=== PATIENT | female | born 1975 | race Caucasian/White ===

== ENCOUNTER 2019-02-23 23:07 | Emergency (ER) | payer OTHER, SELFPAY ==
[2019-02-23 23:16] VITALS: BP 204/111; PULSE 110; RESP 18; TEMP 36.2; O2SAT 95; BMI 51.5
--- NOTE | 2019-02-23 23:25 | ED_ITS ---
HPI - Back Pain/Injury General Chief Complaint: Back Pain/Injury Stated Complaint: lower back pain x1 month Time Seen by Provider: 02/23/19 23:25 Source: patient Mode of arrival: ambulatory Limitations: no limitations History of Present Illness HPI Narrative: 43-year-old female here for evaluation of 1 month of lower back pain. she has had back pain issues in the past. Has had back surgery in the past both cervical and lumbar. She states that approximately 1 month ago she sat down and then since then has had pain. Does radiate down to her legs. No fevers. Has not seen a primary doctor or an orthopedic provider about this. He is not currently on any medicines. She states that she has ?tried everything ?to include essential oils. She states she gets daily massages. She came in this evening because ?I can't take it any longer ? Related Data Previous Rx's Medication Instructions Recorded clotrimazole 1 gm TOPICAL BID #30 gm 07/28/17 meloxicam [Mobic] 15 mg PO DAILY #30 tab 02/23/19 prednisone 50 mg PO DAILY 3 Days #9 tab 02/23/19 Review of Systems Constitutional Denies fever(s) Cardiovascular Denies chest pain and Denies dyspnea Respiratory Denies dyspnea Gastrointestinal Gastrointestinal: Denies abdominal pain Genitourinary Denies dysuria Musculoskeletal Reports back pain and Reports tingling Integumentary/Breasts Denies rash Neurologic Reports tingling Hematologic/Lymphatic Denies easy bleeding and Denies easy bruising [facility] Medical History Back pain (Acute) Surgical History (Updated 03/01/18 @ 06:15 by Conversion Provider) Status post laminectomy Family History (Updated 04/02/16 @ 00:00 by Conversion Provider) Brother Age: 37 Hyperthyroidism Sister Age: 47 Hyperthyroidism Stroke Social History Smoking Status: Current every day smoker Family History (Updated 04/02/16 @ 00:00 by Conversion Provider) Brother Age: 37 Hyperthyroidism Sister Age: 47 Hyperthyroidism Stroke Social History Smoking Status: Current every day smoker Exam Initial Vital Signs Initial Vital Signs: Vital Signs Temperature 97.1 F L 02/23/19 23:16 Pulse Rate 110 H 02/23/19 23:16 Respiratory Rate 18 02/23/19 23:16 Blood Pressure 204/111 H 02/23/19 23:16 Pulse Oximetry 95 02/23/19 23:16 Const General: cooperative, well groomed and No acute distress Orientation: alert, awake and oriented x3 HENMT Head: normal to inspection and normocephalic Resp Effort & Inspection: normal respiratory effort Cardio Rate: regular rate Back/Spine/Pelvis Thoracic/Lumbar Spine: paraspinal tenderness, No thoracic spinal tenderness and lumbar spinal tenderness Skin Rashes: no rashes Neuro General: alert, awake and oriented x3 Cognition: normal cognition Speech: speech normal Extrem General: normal to inspection and capillary refill normal Course Orders Ordered: Discontinued Medications Ketorolac Tromethamine (Toradol) 30 mg IM NOW ONE Stop: 02/23/19 23:34 Last Admin: 02/23/19 23:40 Dose: 30 mg Vital Signs - 8 hr 02/23/19 23:16 02/23/19 23:55 Temperature 97.1 F L Pulse Rate 110 H 96 H Respiratory Rate 18 18 Blood Pressure 204/111 H 159/109 H Pulse Oximetry 95 95 MDM - Back Pain/Injury MDM Narrative Medical decision making narrative: Patient without any red flag symptoms concerning for cauda equina, fracture, metastasis. She has had no recent spinal procedures which makes spinal epidural abscess and hematoma unlikely. No fevers. No indication for radiologic studies. She is not currently on any anti-inflammatories. Patient was asking for an MRI however informed her that there is no indication to do an emergent MRI head of the emergency department. I did inform her that this requires anti-inflammatories. She was given a Toradol shot here in the ER. Was sent home with prescription for Mobic and short course of steroids. Informed her that she needed to talk with her primary doctor regarding further workup. Patient seemed upset about this however expressed understanding and agreement. Discharge Plan Departure Patient Disposition: Home Clinical Impression: Lower back pain Qualifiers: Chronicity: chronic Back pain laterality: midline Sciatica presence: without s ciatica Qualified Code(s): M54.5 - Low back pain Discharge Date/Time: 02/23/19 23:55 Interventions: ED Discharge Assessment Last Done: 02/23/19 23:55 Instructions: Back Pain (Alternative Therapy), DI for Low Back Pain, Activity May Be Better then Rest for Low Back Pain Recovery, Exercise May Reduce Risk of Low Back Pain Activity Restrictions/Additional Instructions: Start taking the medications as directed. Contact your primary care doctor for follow-up to discuss the indications for an MRI. Return to the emergency department for any new or worsening symptoms Prescriptions: New meloxicam [Mobic] 15 mg tablet 15 mg PO DAILY Qty: 30 RF: 0 prednisone 50 mg tablet 50 mg PO DAILY 3 Days Qty: 9 RF: 0 No Action clotrimazole 1 % cream 1 gm Topical BID Qty: 30 RF: 0 Referrals: Felisa Bacon DO [Primary Care Provider] -
[2019-02-23] MEDS: KETOROLAC 60 MG/2 ML VIAL 30 MG IM (23:40)
[2019-02-23 23:55] VITALS: BP 159/109; PULSE 96; RESP 18; O2SAT 95
== END 2019-02-23 23:55 | disposition home or self-care (01) ==
PROVIDERS: Emergency Provider Emergency Medicine; PCP Family Medicine
DX: M54.5 Low back pain (principal); M79.605 Pain in left leg; M79.604 Pain in right leg
CPT/HCPCS: 96372; 99282; 99283; J1885

== ENCOUNTER 2019-03-05 11:53 | Inpatient (IN) | payer OTHER, MEDICAID, SELFPAY ==
[2019-03-05 12:28] VITALS: BP 152/97; PULSE 85; RESP 14; TEMP 37.7; O2SAT 98
--- NOTE | 2019-03-05 12:43 | PC.NURSE ---
Has history of laminectomy in lumbar spine. Reports having had increased pain in lower spine over past week. Today was ambulating and twisted to straighten a chair and felt pop in lower back. Reports unable to lift or bare weight on right leg. reports has normal numbness and tingling to bilateral lower extremities.
--- NOTE | 2019-03-05 14:20 | ED.BACK ---
HPI - Back Pain/Injury General Chief Complaint: Back Pain/Injury Stated Complaint: Lower Back Pain Time Seen by Provider: 03/05/19 14:19 Source: patient and other (friend) Mode of arrival: wheelchair Limitations: no limitations History of Present Illness HPI Narrative: A 43-year-old female comes to the emergency department with complaint of low back pain. Patient has had pain for about a month. She has had issues on and off for several years and had lumbar spine surgery several years ago. Patient states that about 2 hours ago she was moving a chair on her back porch she felt a pop. She immediately had increase in and severe pain in the lower lumbar region. She states that it is sort of in the left side more. Does not really radiate down her leg. She has chronic numbness from the knee down. She states that maybe it is a little bit worse. She states that she can move her leg but it is incredibly painful. Patient states that she can't really walk or move around very well. No loss of bowel or bladder control. She denies any fevers. She was seen by her primary care given steroids, muscle relaxers and referred to PT. She was also seen yesterday in the ER [place] as well as February 23 here. Patient is no longer in contact with her prior surgeon. She also has a history significant for vertebral fracture in the cervical region with surgery. Related Data Previous Rx's Medication Instructions Recorded clotrimazole 1 gm TOPICAL BID #30 gm 07/28/17 meloxicam [Mobic] 15 mg PO DAILY #30 tab 02/23/19 Allergies Allergy/AdvReac Type Severity Reaction Status Date / Time No Known Drug Allergies Allergy Verified 03/05/19 19:14 Review of Systems Review of Systems ROS Unobtainable: All systems reviewed & are unremarkable except as noted in HPI and below Constitutional Denies chills, Denies fever(s), Denies lethargy and Denies weakness Gastrointestinal Gastrointestinal: Denies abdominal pain and Denies fecal incontinence Genitourinary Denies hematuria, Denies dysuria, Denies flank pain, Denies urinary incontinence, Denies urinary hesitancy and Denies urinary urgency Musculoskeletal Reports as per HPI, Reports abnormal gait, Reports back pain, Denies arthralgias, Reports limited range of motion, Reports numbness (Below right leg) and Denies radiating pain into limb Integumentary/Breasts Denies erythema and Denies rash Neurologic Reports abnormal gait, Reports numbness (Below right leg) and Denies weakness [facility] Medical History Back pain (Acute) Surgical History Status post laminectomy Family History (Updated 04/02/16 @ 00:00 by Conversion Provider) Brother Age: 37 Hyperthyroidism Sister Age: 47 Hyperthyroidism Stroke Social History Smoking Status: Current every day smoker Family History (Updated 04/02/16 @ 00:00 by Conversion Provider) Brother Age: 37 Hyperthyroidism Sister Age: 47 Hyperthyroidism Stroke Social History Smoking Status: Current every day smoker Exam Narrative Exam Narrative: GENERAL: Alert and oriented x three, obese female in moderate distress. HEENT: Head normocephalic, atraumatic, EOMI, pupils reactive, face symmetric, moist mucous membranes NECK: Supple, full range of motion CARDIOVASCULAR: Regular rate and rhythm without murmurs, rubs or gallops. RESPIRATORY: Breath sounds equal bilaterally, no wheezes rales or rhonchi. ABDOMEN: Soft, nontender. Normoactive bowel sounds all 4 quadrants. No guarding or rebound, rigidity, no mass : No CVA tenderness BACK: No cervical, thoracic vertebral point tenderness. the patient has lumbar vertebral tenderness had L4 through 5 and S1 region. Patient has decreased range of motion. gait was not tested. Rectal exam is normal sphincter tone, normal sensation with no saddle anesthesia. Muscle strength is 5/5 on right lower extremity, patient is not cooperative for right lower extremity but does have some movement. DTRs are 2/4 and lower extremities. Dorsalis pedis and tibialis pulses are 2+ and lower extremities. Sensation is intact in the lower extremities bilaterally. NEUROLOGICAL: Cranial nerves II through XII grossly intact. Moving all extremities SKIN: Warm, dry, no petechiae, no rashes or lesions. Initial Vital Signs Initial Vital Signs: Vital Signs Temperature 99.9 F H 03/05/19 12:28 Pulse Rate 85 03/05/19 12:28 Respiratory Rate 14 03/05/19 12:28 Blood Pressure 152/97 H 03/05/19 12:28 Pulse Oximetry 98 03/05/19 12:28 Course Orders Ordered: ED Orders 03/05/19 14:51 MR lumbar spine wo con Stat 03/05/19 18:25 Urine Drug Screen, Rapid Stat 03/05/19 20:30 Basic Metabolic Panel Stat Complete Blood Count AUTO DIFF Stat Discontinued Medications Diazepam (Valium) 2 mg PO NOW ONE Stop: 03/05/19 14:53 Last Admin: 03/05/19 16:16 Dose: Not Given Diazepam (Valium) 2.5 mg PO NOW ONE Stop: 03/05/19 15:03 Last Admin: 03/05/19 15:10 Dose: 2.5 mg Hydromorphone HCl (Dilaudid) 1 mg IV NOW ONE Stop: 03/05/19 18:32 Last Admin: 03/05/19 18:40 Dose: 1 mg Ketorolac Tromethamine (Toradol) 30 mg IV NOW ONE Stop: 03/05/19 14:53 Last Admin: 03/05/19 15:10 Dose: 30 mg Methylprednisolone (Solu-Medrol 125 Mg Vial) 125 mg IV NOW ONE Stop: 03/05/19 18:42 Last Admin: 03/05/19 19:15 Dose: 125 mg Vital Signs - 8 hr 03/05/19 14:31 03/05/19 16:33 Pulse Rate 82 69 Respiratory Rate 18 18 Blood Pressure [Left Arm] 156/101 H 147/86 H Pulse Oximetry 96 96 MDM - Back Pain/Injury Lab Data Result diagrams: 03/05/19 20:30 03/05/19 20:30 Lab Results 03/05/19 03/05/19 03/05/19 Range/Units 18:25 20:30 20:30 WBC 14.8 H (4.5-11.0) X10^3/uL RBC 4.74 (4.0-5.2) X10^6/uL Hgb 14.0 (12.0-16.0) g/dL Hct 43.3 (36-46) % MCV 91.4 (80-100) fL MCH 29.5 (26-34) PG MCHC 32.2 (30-36) % RDW 14.9 H (11.6-14.8) % Plt Count 371 (150-400) X10^3/uL Neut % (Auto) 85.3 H (50-75) % Lymph % (Auto) 10.0 L (25-40) % Ford % (Auto) 3.6 (3-14) % Eos % (Auto) 0.9 L (2-4) % Baso % (Auto) 0.2 (0-2) % Neut # (Auto) 62692 H (1213-9927) /uL Lymph # (Auto) 1500 (7903-0149) /uL Ford # (Auto) 500 (0-900) /uL Eos # (Auto) 100 (0-450) /uL Baso # (Auto) 0 (0-100) /uL Sodium 139 (137-145) mmol/L Potassium 4.0 (3.4-5.1) mmol/L Chloride 104 (98-107) mmol/L Carbon Dioxide 22 (22-32) mmol/L BUN 16 (7-17) mg/dL Creatinine 0.70 (0.52-1.04) mg/dL Estimated GFR > 60.0 (>60) mL/min BUN/Creatinine Ratio 22.9 H (6-22) Glucose 166 H (70-100) mg/dL Calcium 8.9 (8.4-10.2) mg/dL Urine Opiates Screen Negative (Negative) Ur Oxycodone Screen Negative (Negative) Urine Methadone Screen Negative (Negative) Ur Barbiturates Screen Negative (Negative) U Tricyclic Antidepress Negative (Negative) Ur Phencyclidine Scrn Negative (Negative) Ur Amphetamines Screen Negative (Negative) U Methamphetamines Scrn Negative (Negative) Ur MDMA Scrn (Ecstasy) Negative (Negative) U Benzodiazepines Scrn Negative (Negative) Urine Cocaine Screen Negative (Negative) U Marijuana (THC) Screen Negative (Negative) Point of Care Testing Test Results Negative Imaging Data mri lspine: My impression: Chart Viewer Diagnostics DATE TYPE STATUS AUTHOR Hx 03/05/19 14:51 Remi Dyer Jenny L 43, F0 1975 REG ER, ED.LOC - Main ED: R03 129.274kg Back Pain/Injury Search Chart No Data to Display ONSET Today 16:33 Sherry Villaseñor 43 F [address] [place] [address] Magnetic Resonance Report Signed Patient: Sherry Villaseñor LMR#: [id number] : 1975Acct:[id number] Age/Sex: 43 / FDate of Service: 03/05/19 Loc: ED Accession Number: [id number] Procedure: MR lumbar spine wo con Ordering Provider: Laurie Tovar D.O. PROCEDURE: MR LUMBAR SPINE WO CON INDICATIONS: low back pain, felt pop, left leg weak, numbness TECHNIQUE: Noncontrast sagittal T1 spin echo and T2 fast echo, sagittal STIR, axial T1 and T2 fast spin echo through the lumbar spine. In cases with scoliosis, additional coronal T2 fast spin echo may be performed. COMPARISON: 11/04/11. FINDINGS: Image quality: Excellent. Alignment and Curvature: There is normal bony alignment. Bone Marrow: Marrow is of normal overall signal. No acute vertebral body compression fractures. Spinal Cord: Conus medullaris terminates at the L1 level. Visualized cord demonstrates normal signal and size. Paraspinous Soft Tissues: No paravertebral masses. L1-L2: L1 vertebral body hemangioma. Circumferential disc bulge, bilateral facet arthrosis, ligamentum flavum thickening without significant neural foraminal stenosis. Mild spinal canal stenosis. L2-L3: Eccentric to the left disc bulge with left paracentral posterior disc protrusion. Bilateral facet arthropathy and ligamentum flavum thickening. There is mild bilateral neural foraminal stenosis, worse on the left. There is effacement of the left anterior thecal sac with narrowing of the left subarticular zone. This has slightly progressed compared to prior study. L3-L4: Prominent circumferential disc bulge with a left posterior disc protrusion. Bilateral facet arthrosis. Ligamentum flavum thickening. The findings result in mild to moderate bilateral neural foraminal narrowing and mild spinal canal stenosis. Findings have progressed compared to prior study. L4-L5: Circumferential disc bulge, bilateral facet arthrosis, and ligamentum flavum thickening resulting moderate bilateral neuroforaminal stenosis and mild spinal canal stenosis. Findings have progressed compared to prior study.. L5-S1: Circumferential disc bulge with more focal eccentric to the left posterior disc protrusion causing effacement of the left subarticular and foraminal zones. Bilateral facet arthrosis. Findings result in moderate left and minimal right bilateral neural foraminal stenosis with moderate spinal canal stenosis. Findings have also progressed at this level. IMPRESSION: 1. Multilevel, multifactorial lumbar spondylosis as described above by vertebral body level. Findings are most severe at L5-S1. Overall, interval progression of degenerative disc disease of the lumbar spine compared to MRI dated 2011. 2. No acute abnormalities identified in the lumbar spine. Dictated by: Remi Dyer M.D. on 03/05/2019 at 17:00 Approved by: Remi Dyer M.D. on 03/05/2019 at 17:13 [facility] Narrative Medical decision making narrative: Case discussed and films were reviewed by Dr. Floyd. Patient does not have any cauda equina like symptoms. She has normal rectal tone, no urinary retention. She has pain in her right lower extremity, she has not been very willing to try to move her right lower extremity and during theo discussion she is not sure if she is really weak or it is just so painful she does not want to move it. We did discuss that this time she would not be emergent surgical case. We could potentially admit her to Medicine for pain control with surgical consult. Discussed with patient we will try some additional pain medication, she is able to ambulate with a walker will discharge for outpatient follow-up. If unable to will discuss with hospitalist for admission. Patient attempted to walk she got about 10 ft and then became quite uncomfortable. She had to use a wheelchair to get the rest of the way to the bathroom. She lives alone and does not have other assistance. The Dilaudid was helpful but when she tries to weight bear she is quite uncomfortable. Spoke with Carolyn who is on for the hospitalist service. She accepts she does ask for a CBC, BMP as well as a UDS. poc preg is negative. These were ordered and patient is having an additional lab draw. We also discussed that orthopedic surgery would see her in the morning although there is no guarantee of any surgery and they did not feel that she needs emergent surgery in the short-term. Dr. Floyd was contacted so that he is aware of consulation for the am. Discharge Plan Departure Patient Disposition: Admitted as Observation Clinical Impression: Acute left lumbar radiculopathy, Acute exacerbation of chronic low back pain
[2019-03-05 14:31] VITALS: BP 156/101; PULSE 82; RESP 18; O2SAT 96
--- NOTE | 2019-03-05 14:51 | DI.MRI.S_ITS ---
PROCEDURE: MR LUMBAR SPINE WO CON INDICATIONS: low back pain, felt pop, left leg weak, numbness TECHNIQUE: Noncontrast sagittal T1 spin echo and T2 fast echo, sagittal STIR, axial T1 and T2 fast spin echo through the lumbar spine. In cases with scoliosis, additional coronal T2 fast spin echo may be performed. COMPARISON: 11/04/11. FINDINGS: Image quality: Excellent. Alignment and Curvature: There is normal bony alignment. Bone Marrow: Marrow is of normal overall signal. No acute vertebral body compression fractures. Spinal Cord: Conus medullaris terminates at the L1 level. Visualized cord demonstrates normal signal and size. Paraspinous Soft Tissues: No paravertebral masses. L1-L2: L1 vertebral body hemangioma. Circumferential disc bulge, bilateral facet arthrosis, ligamentum flavum thickening without significant neural foraminal stenosis. Mild spinal canal stenosis. L2-L3: Eccentric to the left disc bulge with left paracentral posterior disc protrusion. Bilateral facet arthropathy and ligamentum flavum thickening. There is mild bilateral neural foraminal stenosis, worse on the left. There is effacement of the left anterior thecal sac with narrowing of the left subarticular zone. This has slightly progressed compared to prior study. L3-L4: Prominent circumferential disc bulge with a left posterior disc protrusion. Bilateral facet arthrosis. Ligamentum flavum thickening. The findings result in mild to moderate bilateral neural foraminal narrowing and mild spinal canal stenosis. Findings have progressed compared to prior study. L4-L5: Circumferential disc bulge, bilateral facet arthrosis, and ligamentum flavum thickening resulting moderate bilateral neuroforaminal stenosis and mild spinal canal stenosis. Findings have progressed compared to prior study.. L5-S1: Circumferential disc bulge with more focal eccentric to the left posterior disc protrusion causing effacement of the left subarticular and foraminal zones. Bilateral facet arthrosis. Findings result in moderate left and minimal right bilateral neural foraminal stenosis with moderate spinal canal stenosis. Findings have also progressed at this level. IMPRESSION: 1. Multilevel, multifactorial lumbar spondylosis as described above by vertebral body level. Findings are most severe at L5-S1. Overall, interval progression of degenerative disc disease of the lumbar spine compared to MRI dated 2011. 2. No acute abnormalities identified in the lumbar spine. Dictated by: Remi Dyer M.D. on 03/05/2019 at 17:00 Approved by: Remi Dyer M.D. on 03/05/2019 at 17:13
[2019-03-05] MEDS: KETOROLAC 60 MG/2 ML VIAL 30 MG IV (15:10)
[2019-03-05] MEDS: diazePAM 5 MG TABLET 2.5 MG PO (15:10)
[2019-03-05 16:33] VITALS: BP 147/86; PULSE 69; RESP 18; O2SAT 96
[2019-03-05] MEDS: HYDROMORPHONE 1 MG INJ IV (18:40)
[2019-03-05] MEDS: methylPREDNISolone 125 MG/2 ML VIAL IV (19:15)
[2019-03-05 20:34] LABS: Urine Amphetamines Negative (Negative); Urine Barbiturates Negative (Negative); Urine Benzodiazepines Negative (Negative); Urine Cocaine Negative (Negative); Urine MDMA Negative (Negative); Urine Methadone Negative (Negative); Urine Methamphetamines Negative (Negative); Urine Morphine/Opi cutoff 2000 Negative (Negative); Urine Oxycodone Negative (Negative); Urine Phencyclidine Negative (Negative); Urine Tetrahydrocannabinol Negative (Negative); Urine Tricyclic Antidepressant Negative (Negative)
[2019-03-05 20:41] LABS: Add Manual Diff / Slide Review NO; Basophils Absolute Auto 0 /uL (0-100); Basophils Percent Auto 0.2 % (0-2); Eosinophils Absolute Auto 100 /uL (0-450); Eosinophils Percent Auto 0.9 % (2-4); Hematocrit 43.3 % (36-46); Lymphocytes Absolute Auto 1500 /uL (1100-4500); Mean Corpuscular HGB Conc 32.2 % (30-36); Mean Corpuscular Hemoglobin 29.5 PG (26-34); Mean Corpuscular Volume 91.4 fL (80-100); Monocytes Absolute Auto 500 /uL (0-900); Monocytes Percent Auto 3.6 % (3-14); Neutrophils Absolute Auto 12600 /uL (1500-7000); Neutrophils Percent Auto 85.3 % (50-75); Platelet Count 371 X10^3/uL (150-400); Red Blood Cell Count 4.74 X10^6/uL (4.0-5.2); Red Cell Distribution Width 14.9 % (11.6-14.8); White Blood Cell Count 14.8 X10^3/uL (4.5-11.0)
[2019-03-05 20:51] LABS: BUN Creatinine Ratio 22.9 (6-22); Blood Urea Nitrogen 16 mg/dL (7-17); Calcium 8.9 mg/dL (8.4-10.2); Carbon Dioxide 22 mmol/L (22-32); Chloride 104 mmol/L (98-107); Estimated Glomerular Filt Rate > 60.0 mL/min (>60); Glucose 166 mg/dL (70-100); HEMOLYSIS 30 (0-50); Sodium 139 mmol/L (137-145)
[2019-03-05 21:45] VITALS: BMI 40.6
[2019-03-05 22:05] VITALS: BP 138/76; PULSE 69; RESP 16; TEMP 36.7; O2SAT 96
[2019-03-05 22:48] VITALS: O2SAT 98
--- NOTE | 2019-03-05 22:49 | PC.NURSE ---
Pt admitted for control of severe back pain, Bethany it pop when she sat down this am. Since then pain has been so severe that she is immobilized. Can walk to bathroom with walker (voided x1). Alert and oriented x3. Current pain level is 7/10, down from 10 out or 10. Likes to lie flat. O2 sats = 96% on RA.
--- NOTE | 2019-03-05 23:40 | PM.HP.1 ---
History of Present Illness Date Patient Seen: 03/05/19 Time Patient Seen: 22:50 Chief complaint: Lower Back Pain Narrative: The patient is a 43-year-old female who presented to the ED with severe lumbar back pain and difficulty ambulating. Symptom onset is acute and of sudden onset. Shortly prior to ED presentation patient was trying to move a chair across her porch, she bent down and experienced a sudden sensation of a pop in her lower back. The event was associated with sudden onset of sharp lower back pain and an electrical shock-like sensation radiating down to her lower extremities, right more than left. Patient describes pain as severe and immobilizing. She reports sensation of weakness in lower extremities, but unable to tell me if unilateral or bilateral. Denies loss of bowel and bladder control. Reports difficulty sitting up or getting up on her own. She was down in the floor for about 10 minutes, by report, and then was able to crawl inside of the house and call a friend for help. Pain is made worse with sitting and relieved by lying supine. Denies chest pain, dyspnea, upper back pain, dizziness, or lightheadedness. Patient reports having progressive lower back pain starting 30-45 days ago. She was seen at [facility] ER on 02/23 with lower back pain and request for an MRI. At that time, it appeared that there was no indication for an MRI, consequently patient was discharged on a 30 day supply of meloxicam and a 10 day course of prednisone 50 mg. During this ED visit she reports receiving a steroid injection. On 03/04/2019 patient went to work but had difficulty with ambulation. She went to a clinic in [place] and reports receiving a steroid injection at that time as well. She was counseled to follow up with Orthopedic surgery. Patient's pain has been maintaining at a controlled level until the acute event on day of admission. Patient's past medical history significant for cervical spine disease (s/p c corpectomy and cervical spine fusion, 2012) and lumbar spine disease (s/p lumbar laminectomy, 2012). Patient notes spine disease to be a consequence of a fall injury. Additional pertinent history includes morbid obesity. Patient has impaired gait at baseline and uses walker for ambulation. She was unable to achieve complete pain relief or comfort after her prior cervical and lumbar surgery. There appears to be a sequela of nerve injury with chronic b/l hand and foot paresthesia. Patient's case was discussed with orthopedic surgery, Dr. Floyd. The did not find patient to be an emergent surgical case. Patient will be seen and evaluated by orthopedic surgery on 03/07/2019 and further recommendations provided. At present time, patient is being admitted for pain control and potential rehabilitation placement. Patient History Medical History (Updated 03/06/19 @ 01:10 by TAYLOR Sigala) Situational depression (Acute) Abnormal vaginal Pap smear (Chronic) Morbid obesity (Chronic) Back pain (Chronic) Surgical History (Updated 03/06/19 @ 01:10 by TAYLOR Sigala) History of cervical spinal surgery (Chronic) Status post laminectomy Family History Brother Age: 37 Hyperthyroidism Sister Age: 47 Hyperthyroidism Stroke Grandmother Ovarian cancer Grandfather Leukemia Mother No known health problems Father No known health problems Social History household members: friend(s) Smoking Status: Current some day smoker alcohol intake: current Family & Social History Family History Brother Age: 37 Hyperthyroidism Sister Age: 47 Hyperthyroidism Stroke Grandmother Ovarian cancer Grandfather Leukemia Mother No known health problems Father No known health problems Social History: household members friend(s) Prior Living Arrangements House Safety & Behavioral: Feels Safe in Current Yes Environment Been Physically Hurt or No Threatened By a Person Suicidal Ideation Description None Suicide Plan Description No Plan Tobacco & Substance use: Tobacco type Former smoker, cigarettes Smoking Status Current some day smoker Smoking packs per day 0 alcohol intake current alcohol intake frequency a few times a week Substance Use Type does not use Meds Home Medications Medication Instructions Recorded Confirmed Type bupropion HCl 75 mg PO BID 03/05/19 03/05/19 History cyclobenzaprine 5 mg PO DAILY 03/05/19 03/05/19 History Allergies Allergy/AdvReac Type Severity Reaction Status Date / Time No Known Drug Allergies Allergy Verified 03/05/19 19:14 Review of Systems Review of Systems All systems reviewed & are unremarkable except as noted in HPI and below Exam Vital Signs (past 8 hours): - 03/05/19 16:33 03/05/19 22:05 03/05/19 22:48 Temperature 98.0 F Pulse Rate 69 69 Respiratory Rate 18 16 Blood Pressure 138/76 Blood Pressure [Left Arm] 147/86 H Pulse Oximetry 96 96 98 Oxygen Delivery Method Room Air Oxygen Flow Rate 0 Narrative Exam Narrative: General: appears to be in moderate discomfort, patient herself rates pain at 7/10 level, morbidly obese habitus (BMI 40.7) Gait: Patient is able to reposition self from supine to sitting and to standing position, but with difficulty. Appears to be in moderate distress by doing so. She appears to be more comfortable in recumbent position, rather than sitting. There is apparent discomfort when sitting. Unable to sit for a prolonged period of time. Unable to ambulate independently. Requires assistance of walker. Able to ambulate with a walker, but with difficulty. Appears to bear weight significantly on left lower extremity. Heel and toe walking show right foot drop Spine: no apparent kyphosis or scoliosis. potentially absence of lumbar lordosis. spinal tenderness present at the lumbar vertebrae w/ palpation, no tenderness at base of occiput, cervical or thoracic spine lumbo-sacral paraspinal tenderness with palpation, but appears to be significantly more mild in comparison to discomfort with direct spinal palpation unable to test for tripod sign, as patient having difficulty to sit straight leg sign is positive on the right, but negative on the left Neurologic: Awake, alert, oriented x3 Diminished sensation bilateral hands and lower extremity (specifically [id number] --> foot) Anterolatral aspect of thigh w/ sensation intact. Head: NC, AT Eyes: PERRL, EOMI, Ears: external ears normal, no otorrhea Nose: external nose normal, no rhinorrhea or epistaxis Throat: MMM, oropharynx w/o exudate Neck: no masses, lymphadenopathy, or JVD no pain with ROM of neck, no cervical pain with direct palpation of cervical vertebrae Chest / Respiratory: equal chest rise, unlabored respiratory effort, no dyspnea or tachypnea at rest, CTAB, on room air Heart / CV: S1S2, no murmur Abdomen / GI: round w/ marked central obesity, right upper quadrant tenderness, mildly distended, + BS, no organomegally on palpation (however, also difficult to determine given degree of central obesity) : no suprapubic tenderness, no CVA Peripheral / Vascular: warm to touch, DP pulses palpable, no edema, diminished sensation (see neuro section for details) Musc: full ROM of upper extremities and LLE, limited ROM at the right hip d/t pain. motor / strength: RLE weaker than LLE, B/L weakness w/ dorsiflexion of foot and toe w/ right being weaker B/L weakness w/ plantarflexion of foot w/ right being weaker Skin: no ecchymosis or suspicious lesions / ulcers, scar present in the lumbosacral area Objective Labs Result Diagrams: 03/05/19 20:30 03/05/19 20:30 Labs: Laboratory Results - last 24 hr 03/05/19 03/05/19 03/05/19 18:25 20:30 20:30 WBC 14.8 H RBC 4.74 Hgb 14.0 Hct 43.3 MCV 91.4 MCH 29.5 MCHC 32.2 RDW 14.9 H Plt Count 371 Neut % (Auto) 85.3 H Lymph % (Auto) 10.0 L [place] % (Auto) 3.6 Eos % (Auto) 0.9 L Baso % (Auto) 0.2 Neut # (Auto) 14031 H Lymph # (Auto) 1500 [place] # (Auto) 500 Eos # (Auto) 100 Baso # (Auto) 0 Sodium 139 Potassium 4.0 Chloride 104 Carbon Dioxide 22 BUN 16 Creatinine 0.70 Estimated GFR > 60.0 BUN/Creatinine Ratio 22.9 H Glucose 166 H Calcium 8.9 Urine Opiates Screen Negative Ur Oxycodone Screen Negative Urine Methadone Screen Negative Ur Barbiturates Screen Negative U Tricyclic Antidepress Negative Ur Phencyclidine Scrn Negative Ur Amphetamines Screen Negative U Methamphetamines Scrn Negative Ur MDMA Scrn (Ecstasy) Negative U Benzodiazepines Scrn Negative Urine Cocaine Screen Negative U Marijuana (THC) Screen Negative Assessment & Plan Assessment & Plan narrative: lumbosacral spondylosis w/ radiculopathy, acute on chronic, present on admission, active - MRI Lumbar Spine revealed multilevel, multifactorial lumbar spondylosis L1-S1. Findings more severe at L5-S1. Overall, interval progression of the degenerative disc disease of the lumbar spine (compared to MRI dated 2011). No acute abnormalities identified in the lumbar spine. - Consult Orthopedic surgery - PT eval and treat - Consult SW to evaluate for rehab options Pain, acute, present on admission, active Acute back pain radiating down to lower extremity in the setting of progressive degenerative disc disease - Pain control, will trial multiple modalities Toradol 30 mg IV q.6 hours x5 doses Tylenol 650 mg q.6 hours as needed pain Gabapentin 300 mg b.i.d. x48 hours, re-evaluate, may titrate upwards Baclofen 5 mg t.i.d. Continuous pulse ox overnight Patient received Toradol, Dilaudid, and Valium in the ED. Discussed with patient nature and mechanism of pain. Discouraged use of opioids for chronic pain, before trying alternatives. Emphasized danger in combining opioids w/ benzodiazepine. Communicated that I will not be prescribing opioids and benzodiazepines together. Requested for urine drug test to be done in the ED, it was negative. Patient agrees to trial alternative pain medication regimen. Leukocytosis, acute, present on admission, active - Likely reactive; recently received steroids; no signs of SIRS, sepsis, or hemodynamic instability; trend WBC w/ routine lab Increased blood glucose w/o DM (glu 166), acute, present on admission, active No prior diagnosis of diabetes. No family history of diabetes. Patient is morbidly obese an apparent central obesity, which predisposes her to diabetes. Recently received steroids injections for lumbar pain, x3 in the past 30-45 days. - A1C Hypovolemia, acute, present on admission, active - NS at 75 ml / hr, then discontinue Situational Depression, acute, present on admission, active Patient is having difficult time coping with pain and decreased mobility, and fear of not being to ambulate indefinitely. Denies thoughts of harming self or others. - Recently started on Wellbutrin 75 mg p.o. b.i.d., given patient's overall body mass this dose would likely need to be increased - Patient started on gabapentin, which also helps with depression symptoms Morbid obesity, BMI 40.7, chronic condition, present on admission, in need of modification - Need for weight reduction discussed and lifestyle modifications encouraged Code status discussed. Patient wishes to be full code. No formal health directive. Designates her mother, Sherlyn Post, as a surrogate decision maker. Home medications reviewed and reconciled accordingly. VTE prophylaxis w/ SQ heparin Quality VTE Deep Vein Thrombosis/Pulmonary Embolism Present on Admission: No
[2019-03-06] VITALS (12 sets, daily range): BP systolic 119–146; BP diastolic 61–98; PULSE 53–67; RESP 15–18; TEMP 36.2–36.6; O2SAT 93–98
[2019-03-06 00:14] LABS: Hemoglobin A1C% w Est Avg Glu 5.5 % (4.0-6.0)
[2019-03-06] MEDS: SODIUM CHLORIDE 0.9% 1,000 ML 75 ML IV (01:10)
[2019-03-06] MEDS: KETOROLAC 30 MG/ML VIAL IV ×4 (01:11→17:12)
[2019-03-06] MEDS: BACLOFEN 10 MG TABLET 5 MG PO ×4 (01:12→20:45)
[2019-03-06] MEDS: GABAPENTIN 300 MG CAPSULE PO ×3 (01:12→20:44)
[2019-03-06] MEDS: buPROPion 75 MG TABLET PO ×2 (09:16→20:44)
[2019-03-06] MEDS: HEPARIN 5,000 UNIT/ML VIAL 5000 UNIT SUBCUT ×2 (09:18→20:49)
[2019-03-06] MEDS: LIDOCAINE PATCH 1 EACH ADH..PATCH 2 EACH TOP (09:20)
[2019-03-06] MEDS: ACETAMINOPHEN 325 MG TABLET 650 MG PO ×2 (09:20→17:14)
--- NOTE | 2019-03-06 10:47 | PC.NURSE ---
AM NOTE - pt is alert, fransisca diet this am, I was hungry, describes back discomfort as improving since admission, 5-6 on scale 0/10, discussed medications, declines ice pack at this time, did apply the lidocaine patches to the 2 areas lower back that pt indicated were the most uncomfortable, does have chr numbness hands and feet after previous back surgery, added tylenol this am, later up with phys therapy and using fww, ambul in hallway with phys therapy, stated less back spasm after earlier medications administered.
--- NOTE | 2019-03-06 10:59 | CM.DANOTE ---
Addendum entered by Helene Juárez R.N. 03/06/19 16:07: Patient had surgery consult. She may be having laminectomy. Will follow closely, for discharge planning needs. Original Note: DCP: Case received, EMR reviewed and met with patient. Introduced self and role. Was able to receive information regarding baseline health from patient. DCP template completed with information currently available. Patient is a 43 year old female who admitted yesterday evening to the care of the hospitalist team. PCP: Dr. Ollie Hough at [facility]. Payer: [facility]. Patient came to hospital via family vehicle due to increased badk pain. Patient has had history of back problems, and has had prior surgeries. Met briefly with patient. Introduced self. Patient became teary. She stated, she had felt a popping in her back, and severe pain. She is employed at [employer], and has a room mate that lives upstairs. She stated that she gets around ok, but sometimes it's hard. She will be working with physical therapy. Added occupational therapy as well, per hospitalist. P: DCP to continue to follow closely and consult with physical therapy team as well. Helene Juárez RN/Business Director
--- NOTE | 2019-03-06 15:34 | P.CONS_ITS ---
History of Present Illness Date Patient Seen: 03/06/19 Time Patient Seen: 12:03 Chief complaint: Lower Back Pain Reason for consult: back pain, leg pain and weakness, inability to walk Requesting provider: Caro Thorne Narrative: Ms. Villaseñor is a 43 yo F with hx of chronic back pain, history of lumbar multi-level laminectomies surgery, presented to the emergency room for the 3rd time in the last month for severe back pain, progressive weakness and inability to stand and walk due to leg pain and weakness. She received IV and oral medications and was prescribed therapy but has not been able to participate due to inability to ambulate and severe, progressive pain in her legs and weakness in her legs. She is admitted to the medicine service and orthopaedic service is consulted. [facility] Medical History (Updated 03/06/19 @ 01:10 by TAYLOR Sigala) Situational depression (Acute) Abnormal vaginal Pap smear (Chronic) Morbid obesity (Chronic) Back pain (Chronic) Surgical History (Updated 03/06/19 @ 01:10 by TAYLOR Sigala) History of cervical spinal surgery (Chronic) Status post laminectomy Family History Brother Age: 37 Hyperthyroidism Sister Age: 47 Hyperthyroidism Stroke Grandmother Ovarian cancer Grandfather Leukemia Mother No known health problems Father No known health problems Social History household members: friend(s) Smoking Status: Current some day smoker alcohol intake: current Family History Brother Age: 37 Hyperthyroidism Sister Age: 47 Hyperthyroidism Stroke Grandmother Ovarian cancer Grandfather Leukemia Mother No known health problems Father No known health problems Social History household members: friend(s) Smoking Status: Current some day smoker alcohol intake: current Meds Home Medications Medication Instructions Recorded Confirmed Type bupropion HCl 75 mg PO BID 03/05/19 03/05/19 History cyclobenzaprine 5 mg PO DAILY 03/05/19 03/05/19 History Allergies Allergy/AdvReac Type Severity Reaction Status Date / Time No Known Drug Allergies Allergy Verified 03/05/19 19:14 Review of Systems Review of Systems All systems reviewed & are unremarkable except as noted in HPI and below Exam Vital Signs (past 8 hours): - 03/06/19 08:00 03/06/19 10:00 03/06/19 12:00 Temperature 97.1 F L 97.2 F L Pulse Rate 53 L 67 Respiratory Rate 15 16 Blood Pressure 124/69 126/61 Pulse Oximetry 98 96 97 Oxygen Delivery Method Room Air Oxygen Flow Rate 1 Neuro General: alert, awake and oriented x3 Cognition: normal cognition Speech: speech normal Gait: other (Inability to ambulate due to severe leg weakness and pain) Motor: other (4/5 bilateral hamstrings, 4/5 B quadriceps, 4/5 B TA, 4/5 left gastroc) Sensory Exam: other (decreased sensibility to bilateral L3, L4, L5 and left S1 dermatome) DTR's: Rt Patellar: 1+, Lt Patellar: 0, Rt Ankle: 0 and Lt Ankle: 0 Objective Labs Result Diagrams: 03/05/19 20:30 03/05/19 20:30 Labs: Laboratory Results - last 24 hr 03/05/19 03/05/19 03/05/19 18:25 20:30 20:30 WBC 14.8 H RBC 4.74 Hgb 14.0 Hct 43.3 MCV 91.4 MCH 29.5 MCHC 32.2 RDW 14.9 H Plt Count 371 Neut % (Auto) 85.3 H Lymph % (Auto) 10.0 L [place] % (Auto) 3.6 Eos % (Auto) 0.9 L Baso % (Auto) 0.2 Neut # (Auto) 88804 H Lymph # (Auto) 1500 [place] # (Auto) 500 Eos # (Auto) 100 Baso # (Auto) 0 Sodium 139 Potassium 4.0 Chloride 104 Carbon Dioxide 22 BUN 16 Creatinine 0.70 Estimated GFR > 60.0 BUN/Creatinine Ratio 22.9 H Glucose 166 H Hemoglobin A1c Calcium 8.9 Urine Opiates Screen Negative Ur Oxycodone Screen Negative Urine Methadone Screen Negative Ur Barbiturates Screen Negative U Tricyclic Antidepress Negative Ur Phencyclidine Scrn Negative Ur Amphetamines Screen Negative U Methamphetamines Scrn Negative Ur MDMA Scrn (Ecstasy) Negative U Benzodiazepines Scrn Negative Urine Cocaine Screen Negative U Marijuana (THC) Screen Negative 03/05/19 20:30 WBC RBC Hgb Hct MCV MCH MCHC RDW Plt Count Neut % (Auto) Lymph % (Auto) [place] % (Auto) Eos % (Auto) Baso % (Auto) Neut # (Auto) Lymph # (Auto) [place] # (Auto) Eos # (Auto) Baso # (Auto) Sodium Potassium Chloride Carbon Dioxide BUN Creatinine Estimated GFR BUN/Creatinine Ratio Glucose Hemoglobin A1c 5.5 Calcium Urine Opiates Screen Ur Oxycodone Screen Urine Methadone Screen Ur Barbiturates Screen U Tricyclic Antidepress Ur Phencyclidine Scrn Ur Amphetamines Screen U Methamphetamines Scrn Ur MDMA Scrn (Ecstasy) U Benzodiazepines Scrn Urine Cocaine Screen U Marijuana (THC) Screen MRI L-spine: Hx of multiple level laminectomies L2-S1, severe central and foramen stenosis L2-S1 with epdiural scarring Assessment & Plan Assessment & Plan narrative: 43 yo F with hx of lumbar laminectomies surgery with acute worsening of back pain, leg pain and leg weakness. She has severe spinal stenosis centrally and in her neuroforamen in multiple levels. She has been to the emergency room three times in the last month for progressively worsening back pain and leg weakness. She is admitted for worsening pain and weakness and inability to walk due to leg weakness. I discussed my findings with her. She requires surgical decompression with repeat bilateral laminectomies and total facetecomies at L2-3, L3-4 level, which will render L2-3, L3-4 level grossly unstable. She will require a fusion procedure at the same time. She will also require additional decompression at L4-5, L5-S1 with left hemilaminectomy. Risks for surgery include but not limited to bleeding, infection, nerve/dura/bladder/bowel/blood vessel injury, need for additional procedure, even . Pt understands and would like to proceed with surgery. I scheduled her for L2-3, L3-4 TLIF, L4-5, L5-S1 left hemilaminectomies. Time Spent With Patient Time with patient: 25 - 35 minutes
--- NOTE | 2019-03-06 15:54 | PT.IIE ---
Surgical History (Last Updated 03/06/19 @ 01:10 by TAYLOR Sigala) History of cervical spinal surgery (Chronic) Status post laminectomy Medical History (Last Updated 03/06/19 @ 01:10 by TAYLOR Sigala) Situational depression (Acute) Abnormal vaginal Pap smear (Chronic) Morbid obesity (Chronic) Back pain (Chronic) Physical Therapy Inpatient Evaluation/Re-Eval M1 PT/OT-IP Prior Functional Status Start: 03/06/19 15:42 Freq: NEEDED Status: Active Protocol: Document 03/06/19 15:45 [facility] (Rec: 03/06/19 15:54 [facility] [id number]) Medical Review Prior Functional Status Medical History Reviewed Yes Diet/Fluid Consistency Regular Communication WNL Mobility and Gait Indep without AD; Has used cane in past week d/t pain & last day used 4WW Activities of Daily Living and IADL's Typically indep Social History Household Members friend(s) Living Arrangements House Number of Floors (Floors) Two Floors Number of Stairs To Enter/Railing? 5 VERONICA without rails Home Environment Standard Height Toilet Walk in Shower Home Equipment Four Wheel Walker Straight Cane Additional Social History Comment kitchen on 2nd story; roommate she lives w/cannot give her much help; have friends that may be able to help some M2 PT-IP Current Condition Start: 03/06/19 15:42 Freq: NEEDED Status: Active Protocol: Document 03/06/19 15:45 [facility] (Rec: 03/06/19 15:54 [facility] [id number]) Physical Therapy Current Condition Current Condition Evaluation Date 03/06/19 Treatment Diagnosis LBP Precautions Lumbar Precautions Log Roll Limit Bending Weight Bearing Status Weight Bearing Status Weight Bear as Tolerated M3 PT-IP Subjective Start: 03/06/19 15:42 Freq: NEEDED Status: Active Protocol: Document 03/06/19 15:45 [facility] (Rec: 03/06/19 15:54 [facility] [id number]) Subjective Physical Therapy Visit Type Type Initial Evaluation Visit Start Time 10:00 Visit Stop Time 10:30 Total Visit Minutes 30 Number of ELECTRICAL MAINTENANCE ENGINEER Visits 0 Therapy Pain Assessment Pain When Pain Assessed During Mobility Pain Present Pain Present Pain Reported M4 PT-IP Mobility and Gait Start: 03/06/19 15:42 Freq: NEEDED Status: Active Protocol: Document 03/06/19 15:45 [facility] (Rec: 03/06/19 15:54 [facility] [id number]) PT-Bed Mobility Assessment Rolling Type of Rolling Log Rolling Roll to Left Level of Assist Independent Supine to Sit Supine to Sit Standby Assistance Sit to Supine Sit to Supine Standby Assistance Scooting Scooting to Edge of Bed Standby Assistance PT-Transfer Assessment Sit to and From Stand Sit to and from Stand Standby Assistance Equipment Transfer Assistive Device Front Wheeled Walker Orthotic/Prosthetic Devices or Brace: No Comments Mobility Comments Pt stood to FWW to walk to toilet then stood from toilet to walk to hallway and return to bed. Gait Assessment Gait Gait Assistance Required: Standby Assistance Distance (Feet) 50 Able to Maintain Weight Bearing Status Yes During Gait Assistive Devices Assistive Device Gait Belt Front Wheeled Walker Orthotic/Prosthetic Devices or Brace: No Gait Deviations General Gait Pattern Antalgic Decreased Stride Length Flexed Trunk Factors Limiting Gait Function Factors Limiting Gait Function Decreased Activity Tolerance Decreased Strength Limited Range of Motion Pain Comments Gait Comments Pt was able to amb with cueing to stay close to FWW. PT-Balance Assessment Sitting Balance and Reactions Static Sitting Balance Ability Normal Dynamic Sitting Balance Ability Normal Standing Balance and Reactions Static Standing Balance Ability Fair Dynamic Standing Balance Ability Fair Device Used FWW M5 PT-IP Objective Assessments Start: 03/06/19 15:42 Freq: NEEDED Status: Active Protocol: Document 03/06/19 15:45 [facility] (Rec: 03/06/19 15:54 [facility] [id number]) Orientation Orientation/Cognition Level of Alertness Alert Strength Lower Extremity Strength Assessment Bilaterally Impaired M6 PT-IP Treatment Start: 03/06/19 15:42 Freq: NEEDED Status: Active Protocol: Document 03/06/19 15:45 [facility] (Rec: 03/06/19 15:54 [facility] [email or web address]) Physical Therapy Treatment Education Education Provided Precautions Safety Other Treatments Other Treatment Performed Discussed home shower chair need possibly M7 PT-IP Assessment and Plan Start: 03/06/19 15:42 Freq: NEEDED Status: Active Protocol: Document 03/06/19 15:45 [facility] (Rec: 03/06/19 15:54 [facility] [id number]) PT Summary Assessment and Plan Potential Rehabilitation Potential Good Status of Condition at Evaluation Evolving Summary Impairments Pain ROM Strength Balance Transfers Gait Activity Tolerance Assessment Summary Pt presents with hx of LBP with significant exasterbation . She has had pain in LE and has felt limited in her ability to WB until starting meds at hospital. She is concerned about returning home as her roommate will not help her and is concerned about the stairs and about her pain returning. Goals Bed Mobility Goal Independent Transfer Goal Independent Gait Goal Independent Four Wheel Walker Gait Distance 150ft w/least restrictive device Other Goals up/down 5 steps without rail SBA Days to Meet Goals 4 Frequency of Treatment Frequency Of Treatment Once a Day Treatment Plan Physical Therapy Treatment Plan Bed Mobility Training Transfer Training Gait Training Therapeutic Exercise Balance Retraining Discharge Planning Hot or Cold Pack Neuromuscular Re-ed Manual Therapy Recommendations To Nursing Amount of Assist Needed Standby Assistance 1 Person Assist Discharge Recommendations PT Discharge Recommendations Home with Assistance SNF Rehab Outpatient PT Other Discharge Recommendations Pt has risk for falls d/t high level of pain.
--- NOTE | 2019-03-06 19:05 | P.PN_ITS ---
Subjective Date Patient Seen: 03/06/19 Interval history: Sherry Jones is a 43-year-old female with a past medical history significant for degenerative disc disease and lumbar stenosis with chronic back pain, morbid obesity, probable metabolic syndrome with polycystic ovarian syndrome and hirsutism who presented for severe worsening lumbar back pain with difficulty ambulating. The patient is resting in bed comfortably. She continues to have intermittent right leg pain which is shooting in quality. Her pain is in an L5-S1 distribution. She denies headache, shortness of breath, chest pain, abdominal pain, nausea, vomiting, fever, chills, dysuria, diarrhea or constipation. She denies saddle anesthesia or bowel or bladder incontinence. She is voiding and eliminating without difficulty. She is up ambulating minimally with assistance. Exam Vital Signs (past 8 hours): - 03/06/19 12:00 03/06/19 14:00 03/06/19 16:28 Temperature 97.2 F L 97.4 F L Pulse Rate 67 67 Respiratory Rate 16 18 Blood Pressure 126/61 141/92 H Pulse Oximetry 97 96 93 03/06/19 18:41 Temperature Pulse Rate Respiratory Rate Blood Pressure Pulse Oximetry 98 Oxygen Delivery Method Room Air Oxygen Flow Rate 0 Narrative Exam Narrative: General: Middle-aged female lying in bed and in no acute distress, well- developed, well-nourished, emotionally labile but appropriately interactive. HEENT: Normocephalic, atraumatic. External ears without defect. Pupils equal, round, and reactive to light. Anicteric sclerae, moist conjunctivae, and no lid lag. Neck: Supple with full range of motion. No lymphadenopathy or thyromegaly. Cardiovascular: Regular rate and rhythm without murmurs, rubs, or gallops appreciated. Pulmonary: Clear to auscultation bilaterally without crackles, wheezes, or rhonchi. Normal respiratory effort with no use of accessory muscles. Abdomen: Soft, obese, bowel sounds present, non-tender, non-distended. No hepatosplenomegaly or masses appreciated. Extremities: No clubbing, cyanosis, or edema. Skin: Normal temperature, turgor, and texture; no rash, ulcers, or subcutaneous nodules appreciated. Neurological: Cranial nerves grossly intact. Bilateral lower extremity weakness +4/5. Psychiatric: Depressed mood and normal affect. Emotionally labile. Alert and oriented to person, place, and time. Objective Labs Result Diagrams: 03/05/19 20:30 03/05/19 20:30 Labs: Laboratory Results - last 24 hr 03/05/19 03/05/19 03/05/19 18:25 20:30 20:30 WBC 14.8 H RBC 4.74 Hgb 14.0 Hct 43.3 MCV 91.4 MCH 29.5 MCHC 32.2 RDW 14.9 H Plt Count 371 Neut % (Auto) 85.3 H Lymph % (Auto) 10.0 L Mcminn % (Auto) 3.6 Eos % (Auto) 0.9 L Baso % (Auto) 0.2 Neut # (Auto) 78885 H Lymph # (Auto) 1500 Mcminn # (Auto) 500 Eos # (Auto) 100 Baso # (Auto) 0 Sodium 139 Potassium 4.0 Chloride 104 Carbon Dioxide 22 BUN 16 Creatinine 0.70 Estimated GFR > 60.0 BUN/Creatinine Ratio 22.9 H Glucose 166 H Hemoglobin A1c Calcium 8.9 Urine Opiates Screen Negative Ur Oxycodone Screen Negative Urine Methadone Screen Negative Ur Barbiturates Screen Negative U Tricyclic Antidepress Negative Ur Phencyclidine Scrn Negative Ur Amphetamines Screen Negative U Methamphetamines Scrn Negative Ur MDMA Scrn (Ecstasy) Negative U Benzodiazepines Scrn Negative Urine Cocaine Screen Negative U Marijuana (THC) Screen Negative 03/05/19 20:30 WBC RBC Hgb Hct MCV MCH MCHC RDW Plt Count Neut % (Auto) Lymph % (Auto) Mcminn % (Auto) Eos % (Auto) Baso % (Auto) Neut # (Auto) Lymph # (Auto) Mcminn # (Auto) Eos # (Auto) Baso # (Auto) Sodium Potassium Chloride Carbon Dioxide BUN Creatinine Estimated GFR BUN/Creatinine Ratio Glucose Hemoglobin A1c 5.5 Calcium Urine Opiates Screen Ur Oxycodone Screen Urine Methadone Screen Ur Barbiturates Screen U Tricyclic Antidepress Ur Phencyclidine Scrn Ur Amphetamines Screen U Methamphetamines Scrn Ur MDMA Scrn (Ecstasy) U Benzodiazepines Scrn Urine Cocaine Screen U Marijuana (THC) Screen Assessment & Plan Assessment & Plan narrative: Sherry Jones is a 43-year-old female with a past medical history significant for degenerative disc disease and lumbar stenosis with chronic back pain, morbid obesity, probable metabolic syndrome with polycystic ovarian syndrome and hirsutism who presented for severe worsening lumbar back pain with difficulty ambulating. 1. Acute on chronic lumbosacral spondylosis with radiculopathy, present on admission. Active. -MRI lumbar spine demonstrated multilevel, multifactorial lumbar spondylosis L1- S1. Findings more severe at L5-S1. Overall, interval progression of the degenerative disc disease of the lumbar spine (compared to MRI dated 2011). No acute abnormalities identified in the lumbar spine. -Consulted Orthoped.ic surgery, Dr. Mathias, who plans to perform extensive lumbar surgery including laminectomy, foraminectomy, and fusion on 03/08/2019 -Continue physical therapy and occupational therapy evaluation and treatment. -Consult SW to evaluate for rehab options -Consulted Orthoped.ic surgery, Dr. Mathias, who plans to perform extensive lumbar surgery including laminectomy, foraminectomy, and fusion on 03/08/2019. -Pain control, will trial multiple modalities: Toradol 30 mg IV q.6 hours x5 doses Tylenol 650 mg q.6 hours as needed pain Gabapentin 300 mg b.i.d. x48 hours, re-evaluate, may titrate upwards Baclofen 5 mg t.i.d. 2. Leukocytosis, acuity unclear, present on admission. Active. -Likely reactive; recently received steroids; no signs of SIRS, sepsis, or hemodynamic instability; trend WBC w/ routine lab 3. Hyperglycemia, acuity unclear, present on admission. Active. -Likely glucocorticoid induced. Recently received steroids injections for lumbar pain, x3 in the past 30-45 days. -No prior diagnosis of diabetes. No family history of diabetes. Patient is morbidly obese with apparent central obesity, which predisposes her to diabetes. -Hemoglobin A1c within normal limits at 5.5%. 4. Acute hypovolemia, present on admission. Resolved. -Received NS at 75 mL/hr until adequately hydrated then discontinued. 5. Acute situational depression, present on admission. Active. -Patient is having difficult time coping with pain and decreased mobility, and fear of not being to ambulate indefinitely. Denies thoughts of harming self or others. -Recently started on Wellbutrin 75 mg p.o. b.i.d., given patient's overall body mass this dose would likely need to be increased -Patient started on gabapentin, which will also help with depression symptoms. 6. Morbid obesity,, chronic, present on admission. Stable. -Initial BMI 40.7. -Need for weight reduction discussed and lifestyle modifications encouraged Disposition: Patient likely to discharge in several days once she undergoes extensive lumbar surgery. Undoubtedly will need retirement facility for rehabilitation. Quality VTE Deep Vein Thrombosis/Pulmonary Embolism Present on Admission: No
--- NOTE | 2019-03-06 22:42 | PC.NURSE ---
Pt tolerating pain which is between 5 and 7. Advised that she would be having surgery on Wed with Dr Mathias . Pt did not wish to keep lidocaine patches on and removed them herself. Walking to BR with SBA.
[2019-03-07] VITALS (11 sets, daily range): BP systolic 121–139; BP diastolic 72–88; PULSE 16–77; RESP 16–18; TEMP 36.3–36.7; O2SAT 95–99
[2019-03-07] MEDS: KETOROLAC 30 MG/ML VIAL IV (00:07)
[2019-03-07] MEDS: ACETAMINOPHEN 325 MG TABLET 650 MG PO ×2 (08:24→20:57)
[2019-03-07] MEDS: BACLOFEN 10 MG TABLET 5 MG PO ×3 (08:24→20:53)
[2019-03-07] MEDS: buPROPion 75 MG TABLET PO ×2 (08:25→20:53)
[2019-03-07] MEDS: GABAPENTIN 300 MG CAPSULE PO ×2 (08:25→20:53)
[2019-03-07] MEDS: SENNOSIDES 8.6 MG TABLET PO (08:26)
[2019-03-07] MEDS: HEPARIN 5,000 UNIT/ML VIAL 5000 UNIT SUBCUT ×2 (08:26→20:52)
[2019-03-07] MEDS: DOCUSATE 100 MG CAPSULE PO (08:26)
[2019-03-07] MEDS: LIDOCAINE PATCH 1 EACH ADH..PATCH 2 EACH TOP (08:27)
--- NOTE | 2019-03-07 08:31 | P.PN_ITS ---
Subjective Date Patient Seen: 03/07/19 Time Patient Seen: 08:31 Interval history: Ms. Villaseñor is a 43 yo F with hx of chronic back pain, history of lumbar multi-level laminectomies surgery, presented to the emergency room for the 3rd time in the last month for severe back pain, progressive weakness and inability to stand and walk due to leg pain and weakness. She received IV and oral medications and was prescribed therapy but has not been able to participate due to inability to ambulate and severe, progressive pain in her legs and weakness in her legs. She is admitted to the medicine service and orthopaedic service is consulted. No changes in symptoms since yesterday. Exam Vital Signs (past 8 hours): - 03/07/19 00:35 03/07/19 02:00 03/07/19 05:00 Temperature 98.1 F 97.4 F L Pulse Rate 68 16 L Respiratory Rate 16 16 Blood Pressure 139/84 138/78 Pulse Oximetry 99 97 95 03/07/19 06:11 03/07/19 08:00 Temperature 97.8 F Pulse Rate 68 Respiratory Rate 18 Blood Pressure 134/88 Pulse Oximetry 95 Oxygen Delivery Method Room Air Oxygen Flow Rate 0 Narrative Exam Narrative: Patient lying in bed in NAD. She is alert and oriented X3. Calves are soft, compressible, and nontender bilaterally. Strength: 4/5 bilateral hamstrings, 4/5 B quadriceps, 4/5 B TA, 4/5 left gastroc. Decreased sensation to bilateral L3, L4, L5 and left S1 dermatome. Reflexes: Rt Patellar 1+, Lt Patellar 0, Rt Ankle 0 and Lt Ankle 0. Objective Labs Result Diagrams: 03/05/19 20:30 03/05/19 20:30 Assessment & Plan (1) Acute left lumbar radiculopathy: Problem details: 43 yo F with hx of lumbar laminectomies surgery with acute worsening of back pain, leg pain and leg weakness. She has severe spinal stenosis centrally and in her neuroforamen in multiple levels. She has been to the emergency room three times in the last month for progressively worsening back pain and leg weakness.She is admitted for worsening pain and weakness and inability to walk due to leg weakness. She requires surgical decompression with repeat bilateral laminectomies and total facetecomies at L2-3, L3-4 level, which will render L2-3, L3-4 level grossly unstable. She will require a fusion procedure at the same time. She will also require additional decompression at L4-5, L5-S1 with left hemilaminectomy. Risks for surgery include but not limited to bleeding, infection, nerve/dura/bl adder/bowel/blood vessel injury, need for additional procedure, even . Pt understands and would like to proceed with surgery. She is scheduled her for L2-3, L3-4 TLIF, L4-5, L5-S1 left hemilaminectomies on at 7:45 am. DC Toradol and start Oxycodone 5-10 mg Q4hr. Current visit: Yes Status: Acute Quality VTE Deep Vein Thrombosis/Pulmonary Embolism Present on Admission: No
[2019-03-07 09:15] LABS: Add Manual Diff / Slide Review NO; Basophils Absolute Auto 100 /uL (0-100); Basophils Percent Auto 0.8 % (0-2); Eosinophils Absolute Auto 100 /uL (0-450); Eosinophils Percent Auto 0.9 % (2-4); Hematocrit 43.2 % (36-46); Hemoglobin 14.1 g/dL (12.0-16.0); Lymphocytes Absolute Auto 3200 /uL (1100-4500); Lymphocytes Percent Auto 42.8 % (25-40); Mean Corpuscular HGB Conc 32.8 % (30-36); Mean Corpuscular Hemoglobin 29.9 PG (26-34); Mean Corpuscular Volume 91.4 fL (80-100); Monocytes Absolute Auto 700 /uL (0-900); Monocytes Percent Auto 9.8 % (3-14); Neutrophils Absolute Auto 3400 /uL (1500-7000); Neutrophils Percent Auto 45.7 % (50-75); Platelet Count 315 X10^3/uL (150-400); Red Blood Cell Count 4.72 X10^6/uL (4.0-5.2); Red Cell Distribution Width 14.7 % (11.6-14.8); White Blood Cell Count 7.4 X10^3/uL (4.5-11.0)
--- NOTE | 2019-03-07 09:30 | PT.IPTN ---
Current Diagnoses Radiculopathy, lumbar region (03/05/19) Surgery Performed Operation Date: 03/09/19 07:45 <No data on this case meets the specified criteria> Physical Therapy Treatment Note M2 PT-IP Current Condition Start: 03/06/19 15:42 Freq: NEEDED Status: Active Protocol: Document 03/06/19 15:45 [facility] (Rec: 03/06/19 15:54 [facility] [email or web address]) Physical Therapy Current Condition Current Condition Evaluation Date 03/06/19 Treatment Diagnosis LBP Precautions Lumbar Precautions Log Roll Limit Bending Weight Bearing Status Weight Bearing Status Weight Bear as Tolerated M3 PT-IP Subjective Start: 03/06/19 15:42 Freq: NEEDED Status: Active Protocol: Document 03/07/19 09:30 [facility] (Rec: 03/07/19 11:38 [facility] [id number]) Subjective Physical Therapy Visit Type Type Treatment Note Visit Start Time 09:05 Visit Stop Time 09:30 Total Visit Minutes 25 Number of CRYPTOGRAPHER Visits 1 Physical Therapy Visit Comments Patient Comments Pt states she would like to walk. Therapy Pain Assessment Pain When Pain Assessed During Mobility Pain Present Pain Present Pain Reported Location Left Leg Intensity 7 Scale Used Numeric (1 - 10) M4 PT-IP Mobility and Gait Start: 03/06/19 15:42 Freq: NEEDED Status: Active Protocol: Document 03/07/19 09:30 [facility] (Rec: 03/07/19 11:38 [facility] [id number]) PT-Bed Mobility Assessment Rolling Type of Rolling Log Rolling Roll to Left Level of Assist Independent Supine to Sit Supine to Sit Standby Assistance Bedrails Sit to Supine Sit to Supine Standby Assistance Bedrails Scooting Scooting to Edge of Bed Standby Assistance PT-Transfer Assessment Sit to and From Stand Sit to and from Stand Standby Assistance Equipment Transfer Assistive Device Gait Belt Front Wheeled Walker Orthotic/Prosthetic Devices or Brace: No Transfers Transfer Destination Bed Toilet Gait Assessment Gait Gait Assistance Required: Standby Assistance Distance (Feet) 80 Able to Maintain Weight Bearing Status Yes During Gait Assistive Devices Assistive Device Gait Belt Front Wheeled Walker Orthotic/Prosthetic Devices or Brace: No Gait Deviations General Gait Pattern Antalgic Decreased Stride Length Flexed Trunk Factors Limiting Gait Function Factors Limiting Gait Function Decreased Activity Tolerance Decreased Strength Limited Range of Motion Pain M5 PT-IP Objective Assessments Start: 03/06/19 15:42 Freq: NEEDED Status: Active Protocol: Document 03/06/19 15:45 [facility] (Rec: 03/06/19 15:54 [facility] [email or web address]) Orientation Orientation/Cognition Level of Alertness Alert Strength Lower Extremity Strength Assessment Bilaterally Impaired M6 PT-IP Treatment Start: 03/06/19 15:42 Freq: NEEDED Status: Active Protocol: Document 03/06/19 15:45 [facility] (Rec: 03/06/19 15:54 [facility] [email or web address]) Physical Therapy Treatment Education Education Provided Precautions Safety Other Treatments Other Treatment Performed Discussed home shower chair need possibly M7 PT-IP Assessment and Plan Start: 03/06/19 15:42 Freq: NEEDED Status: Active Protocol: Document 03/07/19 09:30 [facility] (Rec: 03/07/19 11:38 [facility] [id number]) PT Summary Assessment and Plan Summary Assessment Summary Pt improving with gait with FWW. She had heavy use of UE on FWW. She did have increase in pain with standing at sink to wash hands. D/C will need further assessment. Frequency of Treatment Frequency Of Treatment Once a Day Treatment Plan Physical Therapy Treatment Plan Bed Mobility Training Transfer Training Gait Training Therapeutic Exercise Balance Retraining Discharge Planning Hot or Cold Pack Neuromuscular Re-ed Manual Therapy Recommendations To Nursing Amount of Assist Needed Standby Assistance 1 Person Assist Discharge Recommendations PT Discharge Recommendations Home with Assistance SNF Rehab Other Discharge Recommendations Home VS SNF need assessment after surgery.
[2019-03-07] MEDS: OXYCODONE IR 5 MG TABLET PO ×2 (09:45→14:30)
[2019-03-07 09:58] LABS: TSH w/ Reflex to FT4 1.81 uIU/mL (0.47-4.68)
[2019-03-07 10:00] LABS: BUN Creatinine Ratio 22.9 (6-22); Blood Urea Nitrogen 16 mg/dL (7-17); Calcium 8.4 mg/dL (8.4-10.2); Carbon Dioxide 25 mmol/L (22-32); Chloride 105 mmol/L (98-107); Estimated Glomerular Filt Rate > 60.0 mL/min (>60); Glucose 74 mg/dL (70-100); HEMOLYSIS < 15 (0-50); Magnesium 2.3 mg/dL (1.6-2.3); Potassium 3.9 mmol/L (3.4-5.1); Sodium 137 mmol/L (137-145)
--- NOTE | 2019-03-07 11:22 | OT.IP.TRT ---
Addendum entered and electronically signed by Mariela Giron OT 03/07/19 15:59: This note is an initial evaluation. Renetta Giron, OT/L Original Note: Current Diagnoses Radiculopathy, lumbar region (03/05/19) Surgery Performed Operation Date: 03/09/19 07:45 <No data on this case meets the specified criteria> Occupational Therapy Treatment Note M2 OT-IP Current Condition Start: 03/07/19 14:41 Freq: Status: Active Protocol: Document 03/07/19 11:22 PJM (Rec: 03/07/19 15:09 [facility] [id number]) Occupational Therapy Current Condition Current Condition Evaluation Date 03/07/19 Treatment Diagnosis decr'd self care, mobility due to severe back pain w/surgery planned 11/09/18 Diagnosis Onset Date 03/05/19 Post Operative Precautions Lumbar Precautions Log Roll No Twisting Limit Bending Lifting Restriction of 10 lbs Gait Belt above Incisional Area Other Precautions provided spinal surgery educational handout for pt review M3 OT- IP Subjective and Pain Start: 03/07/19 14:41 Freq: Status: Active Protocol: Document 03/07/19 11:22 PJM (Rec: 03/07/19 15:09 [facility] [id number]) OT- Subjective Occupational Therapy Visit Type Type Initial Evaluation Visit Start Time 10:44 Visit Stop Time 11:22 Total Visit Minutes 38 Occupational Therapy Visit Comments Patient Comments I really need a shower. It's been 2 days. Patient/Caregiver Goals to have relief from back pain and be able to go back to work OT Pain Assessment Pain When Pain Assessed After Treatment Pain Present Pain Present Pain Reported Location Lower Back Intensity 8 Scale Used Numeric (1 - 10) Description Aching Acute Pain Behaviors Calling Out Crying Facial Grimacing Guarding Wincing Management Techniques Distraction Modification of Treatment Re-positioning Timing of Activity with Medications M4 OT- IP ADL's Start: 03/07/19 14:41 Freq: Status: Active Protocol: Document 03/07/19 11:22 PJM (Rec: 03/07/19 15:09 [facility] [id number]) OT [id number] General Evaluation Self-Feeding Ability Independent Comments OT Self-Feeding Comments pt currently eating in sidelying in bed as she cannot tolerate sitting position OT ADL-Grooming Comments OT Grooming Comments pt declined this session due to high pain level; provided education re: body mechanics OT ADL-Oral Care Comments Oral Care Comments pt declined this session; provided education re: body mechanics OT ADL-Dressing General Eval Upper Body Dressing Ability Minimal Assistance Lower Body Dressing Ability Moderate Assistance Total Assistance Areas Needing Assistance Button-Up Shirt/Blouse Pants/Shorts Socks Comments OT Dressing Comments pt mod assist with pants, total assist with socks; pt unable to tolerate sitting long enough to try enrollment counselor and sock aid use; provided education re: body mechanics and adapted techniques OT ADL-Toileting General Evaluation Toileting Ability Standby Assistance Areas Needing Assistance Perform Perineal Hygiene Devices Toileting Assistive Devices Grab Bars Raised Toilet Seat Comments OT Toileting Comments provided education re: body mechanics during reji care and toilet paper aids OT ADL-Bathing Bathing Type Bathing Type Shower General Evaluation Bathing Ability Minimal Assistance Areas Needing Assistance Wash/Dry Lower Extremities Devices Bathing Equipment Hand Held Shower Sprayer Shower Chair with Arms Grab Bars Comments OT Bathing Comments Pt leaning heavily on wall when standing and did sit for 50% of shower due to low back pain. Pt keeps weight off R hip in sitting due to pain. Began education re: use of long bath sponge and enrollment counselor to assist with drying lower legs and feet. M5 OT- IP IADL's Start: 03/07/19 14:41 Freq: Status: Active Protocol: Document 03/07/19 11:22 PJM (Rec: 03/07/19 15:09 [facility] [id number]) OT-Instrumental Activities of Daily Living Deficits IADL Deficits Identified Deficits Home Safety Awareness Awareness of Need for Assistance at Home Good Awareness Ability to Problem Solve Emergency Able to Problem Solve Situations Medication Management Medication Management No Deficits Identified Money Management Money Management No Deficits Identified Meal Preparation Meal Preparation Comments Pt will need assist until pain better controlled and activity tolerance improves. Shorthand Teacher Shorthand Teacher Comments Pt will need assist until pain better controlled and activity tolerance improves. Driving Driving Comments Pt will need assist until pain better controlled and activity tolerance improves. M6 OT- IP Functional Cognition Start: 03/07/19 14:41 Freq: Status: Active Protocol: Document 03/07/19 11:22 PJM (Rec: 03/07/19 15:09 [facility] [id number]) Cognitive Factors Limiting Selfcare Function Cognitive Ability Level of Alertness Alert Patient Orientation Name Age Birthday Month Date Year Day of Week Place Situation Attention Span Ability Capable of Focused Attention Ability to Follow Commands Able to Follow One Step Commands Safety Awareness Decreased Recall of Precautions Decreased Ability to Apply Precautions Cognitive Comments Cognitive Assessment Comments Pt needs verbal cues to avoid twisting. OT- Vision and Hearing OT- Hearing Assessment OT- Hearing Assessment Hearing Impaired OT- Vision Assessment Visual Acuity WFL Vision Assessment Comments Pt denies any recent vision changes. M7 OT- IP Mobility and Balance Start: 03/07/19 14:41 Freq: Status: Active Protocol: Document 03/07/19 11:22 PJM (Rec: 03/07/19 15:09 [facility] [id number]) OT- Bed Mobility Assessment Rolling Type of Rolling Log Rolling Roll to Right Roll to Left Level of Assistance Standby Assistance Supine to Sit Supine to Sit Assist Standby Assistance Sit to Supine Sit to Supine Assist Standby Assistance Scooting Scooting to Edge of Bed Standby Assistance OT-Transfer Assessment Sit to and From Stand Sit to and from Stand Contact Guard Assistance Transfers Transfer Ability Contact Guard Assistance Technique Transfer Destination Shower Stall Transfer Technique Stand Step Pivot Devices Transfer Assistive Devices Front Wheeled Walker OT- Gait Assessment Gait Gait Assistance Required: Standby Assistance Contact Guard Assist Distance (Feet) 20 Assistive Devices Assistive Device Front Wheeled Walker Comments Gait Ability Comments No loss of balance noted ambulating with FWW in/out of bathroom for shower. OT- Balance Assessment Sitting Balance and Reactions Static Sitting Balance Ability Good Dynamic Sitting Balance Ability Good Standing Balance and Reactions Static Standing Balance Ability Fair Dynamic Standing Balance Ability Fair M8 OT- IP Objective Assessments Start: 03/07/19 14:41 Freq: Status: Active Protocol: Document 03/07/19 11:22 PJM (Rec: 03/07/19 15:09 [facility] [id number]) OT Gross Range of Motion Upper Extremity Range of Motion Assessment Within Functional Limits OT Strength Upper Extremity Strength Assessment Within Functional Limits Hand Sales Contracts Analyst Strength Hand Dominance Mixed OT- Coordination Assessment Upper Extremity Finger to Nose Test Within Functional Limits Finger Tapping Test Within Functional Limits OT-Muscle Tone Assessment Muscle Tone WNL Yes OT Sensation Assessment Comments Summary Comments Pt has paraesthesias in B hands since C spine fusion 2011. Edema Edema Absent M9 OT- IP Assessment and Plan Start: 03/07/19 14:41 Freq: Status: Active Protocol: Document 03/07/19 11:22 PJM (Rec: 03/07/19 15:09 [facility] [id number]) OT Summary Assessment and Plan Potential Rehabilitation Potential Good Analytic Complexity at Evaluation Low Summary OT Impairments Pain Balance Functional Mobility Grooming Dressing Toileting Bathing Toilet Transfers Shower Transfers Assessment Summary Low complexity OT assessment completed with emphasis on lumbar spine precautions to decrease current severe low back pain with multilevel lumbar fusion scheduled for 03/09/19. Pt's activity tolerance significantly limited by pain at present. She cannot tolerate sitting on toilet for more than 2-3 minutes. Pt currently has performance deficits in activity tolerance, all functional mobility/ transfers, lower body dressing, bathing and toileting. Began education re: lumbar spine precautions and adapted ADL techniques today. Will need to reassess pt after surgery to determine if she will be safe to return home where she has no support from roommate and many stairs to access kitchen. Pt may be able to stay with friend in more accessible mother in law suite. Further d/c recommendations to follow pending progress with pain control and activity tolerance post op. Goals Self-Feeding Goal Independent Grooming Goal Independent Dressing Goal Independent Long Handled Shoe Horn Invoice Classification Clerk Sock Aid Toileting Goal Independent Bathing Goal Standby Assistance Toilet Transfer Goal Independent Shower Transfer Goal Standby Assistance Patient/Caregiver Education Goal Demonstrate Post-Op Precautions Demonstrate Energy Conservation and Pacing Caregiver Independent Assisting Patient OT-Other Goals pt will tolerate sitting in chair for 20-30 min for eating. Days to Meet Goals 7 Frequency of Treatment Frequency Of Treatment Once a Day Treatment Plan OT Treatment Plan ADL Training Functional Mobility Patient/Family Education Discharge Planning Other Treatment Recommendations and Next further d/c recommendations to Treatment Focus follow pending tp progress after surgery Discharge Recommendations OT Discharge Recommendations Home with Assistance Other Discharge Recommendations further d/c recommendations to follow pending tp progress after surgery Home Equipment Needs raised toilet seat, shower chair
--- NOTE | 2019-03-07 14:35 | PC.NURSE ---
Ortho: Pt having more pain today, was getting scheduled toradol but that has been stopped and she is unable to have more due to upcoming surg. Discussed pain med regime with ortho as well as activity goals at this time. Pt has increased pain when ever she sits. Stays flat in the bed. Can do PT as it won't make anything worse however she should stop if has increased pain. discussed pre-op teaching for log rolling and lami precautions. She did work with PT/OT today and is working on her log rolling tech. Reviewed lami precautions. New pain regime explained and she has received oxycodone x2 and it has been effective. Cont w/poc.
--- NOTE | 2019-03-07 20:26 | PM.PN.1 ---
Subjective Date Patient Seen: 03/07/19 Interval history: Sherry Jones is a 43-year-old female with a past medical history significant for degenerative disc disease and lumbar stenosis with chronic back pain, morbid obesity, probable metabolic syndrome with polycystic ovarian syndrome and hirsutism who presented for severe worsening lumbar back pain with difficulty ambulating. The patient is resting in bed comfortably. She continues to have intermittent right leg shooting pain and weakness. Her pain is in an L5-S1 distribution. She denies headache, shortness of breath, chest pain, abdominal pain, nausea, vomiting, fever, chills, dysuria, diarrhea or constipation. She denies saddle anesthesia or bowel or bladder incontinence. She is voiding and eliminating without difficulty. She is up ambulating minimally with assistance and PT/OT. She is planned for surgery on 03/09/2019. Exam Vital Signs (past 8 hours): - 03/07/19 14:51 03/07/19 15:50 03/07/19 16:11 Temperature 97.8 F Pulse Rate 77 Respiratory Rate 18 Blood Pressure 121/72 Pulse Oximetry 97 96 96 Oxygen Delivery Method Room Air Oxygen Flow Rate 0 Narrative Exam Narrative: General: Middle-aged female lying in bed and in no acute distress, well-developed, well-nourished, emotionally labile but appropriately interactive. HEENT: Normocephalic, atraumatic. External ears without defect. Pupils equal, round, and reactive to light. Anicteric sclerae, moist conjunctivae, and no lid lag. Neck: Supple with full range of motion. No lymphadenopathy or thyromegaly. Cardiovascular: Regular rate and rhythm without murmurs, rubs, or gallops appreciated. Pulmonary: Clear to auscultation bilaterally without crackles, wheezes, or rhonchi. Normal respiratory effort with no use of accessory muscles. Abdomen: Soft, obese, bowel sounds present, non-tender, non-distended. No hepatosplenomegaly or masses appreciated. Extremities: No clubbing, cyanosis, or edema. Skin: Normal temperature, turgor, and texture; no rash, ulcers, or subcutaneous nodules appreciated. Neurological: Cranial nerves grossly intact. Bilateral lower extremity weakness +4/5. Psychiatric: Depressed mood and normal affect. Emotionally labile. Alert and oriented to person, place, and time. Objective Labs Result Diagrams: 03/07/19 08:11 03/07/19 08:11 Labs: Laboratory Results - last 24 hr 03/07/19 03/07/19 03/07/19 08:11 08:11 08:11 WBC 7.4 RBC 4.72 Hgb 14.1 Hct 43.2 MCV 91.4 MCH 29.9 MCHC 32.8 RDW 14.7 Plt Count 315 Neut % (Auto) 45.7 L D Lymph % (Auto) 42.8 H D Owen % (Auto) 9.8 Eos % (Auto) 0.9 L Baso % (Auto) 0.8 Neut # (Auto) 3400 Lymph # (Auto) 3200 Owen # (Auto) 700 Eos # (Auto) 100 Baso # (Auto) 100 Sodium 137 Potassium 3.9 Chloride 105 Carbon Dioxide 25 BUN 16 Creatinine 0.70 Estimated GFR > 60.0 BUN/Creatinine Ratio 22.9 H Glucose 74 Calcium 8.4 Magnesium 2.3 TSH 1.81 Assessment & Plan Assessment & Plan narrative: Sherry Jones is a 43-year-old female with a past medical history significant for degenerative disc disease and lumbar stenosis with chronic back pain, morbid obesity, probable metabolic syndrome with polycystic ovarian syndrome and hirsutism who presented for severe worsening lumbar back pain with difficulty ambulating. 1. Acute on chronic lumbosacral spondylosis with radiculopathy, present on admission. Active. -MRI lumbar spine demonstrated multilevel, multifactorial lumbar spondylosis L1-S1. Findings more severe at L5-S1. Overall, interval progression of the degenerative disc disease of the lumbar spine (compared to MRI dated 2011). No acute abnormalities identified in the lumbar spine. -Continue physical therapy and occupational therapy evaluation and treatment. -Consulted PUBLIC POLICY MEDIATOR to evaluate for rehab options. -Consulted Orthopedic surgery, Dr. Mathias, who plans to perform extensive lumbar surgery including laminectomy, foraminectomy, and fusion on 03/09/2019. -Pain control, will trial multiple modalities: Toradol 30 mg IV q.6 hours x5 doses. Discontinued. Tylenol 650 mg q.6 hours as needed pain. Gabapentin 300 mg b.i.d. x48 hours, re-evaluate, may titrate upwards. Baclofen 5 mg t.i.d. Oxycodone 5-10 mg every 4 hours per ortho. 2. Leukocytosis, acuity unclear, present on admission. Resolved. -Likely reactive; recently received steroids; no signs of SIRS, sepsis, or hemodynamic instability; trend WBC w/ routine lab 3. Hyperglycemia, acuity unclear, present on admission. Resolved. -Likely glucocorticoid induced and reactive. Recently received steroids injections for lumbar pain, x3 in the past 30-45 days. -No prior diagnosis of diabetes. No family history of diabetes. Patient is morbidly obese with apparent central obesity, which predisposes her to diabetes. -Hemoglobin A1c within normal limits at 5.5%. 4. Acute hypovolemia, present on admission. Resolved. -Received NS at 75 mL/hr until adequately hydrated then discontinued. 5. Acute situational depression, present on admission. Active. -Patient is having a difficult time coping with pain and decreased mobility, and fear of not being to ambulate indefinitely. Denies thoughts of harming self or others. -Recently started on Wellbutrin 75 mg twice daily, given patient's overall body mass this dose would likely need to be increased. -Patient started on gabapentin, which will also help with depression symptoms. 6. Morbid obesity, chronic, present on admission. Stable. -Initial BMI 40.7. -Discussed in depth and recommended lifestyle modification including: diet and exercise in future. 7. Probable PCOS and hirsutism, present on admission. Stable. -Patient was under the impression that anesthesia from previous surgery caused hair loss and male pattern hair growth. Previous history of possible miscarriage in the past. -Discussed PCOS and hirsutism in detail. Patient has centripetal obesity without metabolic syndrome diabetes, hyperlipidemia, or hypertension but is at high risk. Disposition: Patient likely to discharge in several days once she undergoes extensive lumbar surgery. Undoubtedly will need long term facility for rehabilitation. Quality VTE Deep Vein Thrombosis/Pulmonary Embolism Present on Admission: No
[2019-03-07] MEDS: OXYCODONE IR 5 MG TABLET 10 MG PO (20:53)
--- NOTE | 2019-03-07 22:55 | PC.NURSE ---
olivia shift- assumed care of pt. Pt has family in room. uses call potter. waits for assistance. 2 lido patches to back. discussed medications with pt and different uses. pt verbalized understanding. pt did not ask for pain meds until later in the evening. Pt one person assist to br. able to care for self. has hair net on. taught IS use and importance. will continue to monitor pt for safety.
[2019-03-08] VITALS (10 sets, daily range): BP systolic 125–151; BP diastolic 79–90; PULSE 78–86; RESP 16–18; TEMP 36.4–37.1; O2SAT 94–98
[2019-03-08] MEDS: OXYCODONE IR 5 MG TABLET PO ×3 (04:01→12:30)
[2019-03-08] MEDS: GABAPENTIN 300 MG CAPSULE PO ×2 (08:11→20:48)
[2019-03-08] MEDS: buPROPion 75 MG TABLET PO ×2 (08:11→20:48)
[2019-03-08] MEDS: BACLOFEN 10 MG TABLET 5 MG PO ×3 (08:11→20:48)
[2019-03-08] MEDS: SODIUM CHLORIDE 0.9% FLUSH 10 ML IV ×2 (08:12→20:50)
--- NOTE | 2019-03-08 10:10 | PM.PN.1 ---
Subjective Date Patient Seen: 03/08/19 Time Patient Seen: 10:10 Interval history: Hospital day 3 with problem of severe low back pain and severe lumbar stenosis. She did have ortho consult done by Dr. Mathias following her lumbar MRI. She has significant lumbar stenosis at L2-3 through L5-S1. She is scheduled for L2-3, L3-4 TLIF and L4 through S1 left hemilaminectomy on 03/09/2019. Mostly doing pain control at this time. limited PT. She is being followed by hospitalist. Exam Vital Signs (past 8 hours): - 03/08/19 04:12 03/08/19 07:47 03/08/19 09:55 Temperature 98.5 F Pulse Rate 78 Respiratory Rate 16 Blood Pressure 151/90 H Pulse Oximetry 97 97 97 Oxygen Delivery Method Room Air Oxygen Flow Rate 0 Narrative Exam Narrative: Alert, oriented in no acute distress but complaining of pain to lower back lying in bed. legs. No calf pain or swelling. Pulses symmetrical. Decreased sensation to left lateral calf compared to the other leg areas. Good strength on foot dorsiflexion plantar flexion. Objective Labs Result Diagrams: 03/07/19 08:11 03/07/19 08:11 Assessment & Plan Assessment & Plan narrative: Plan: Patient will continue with pain control measures at this time. will hold heparin prior to surgery. she will be NPO after midnight tonight for surgery tomorrow. Quality VTE Deep Vein Thrombosis/Pulmonary Embolism Present on Admission: No
--- NOTE | 2019-03-08 12:16 | PT.IPTN ---
Current Diagnoses Radiculopathy, lumbar region (03/05/19) Surgery Performed Operation Date: 03/09/19 07:45 <No data on this case meets the specified criteria> Physical Therapy Treatment Note M2 PT-IP Current Condition Start: 03/06/19 15:42 Freq: NEEDED Status: Active Protocol: Document 03/06/19 15:45 [facility] (Rec: 03/06/19 15:54 [facility] [id number]) Physical Therapy Current Condition Current Condition Evaluation Date 03/06/19 Treatment Diagnosis LBP Precautions Lumbar Precautions Log Roll Limit Bending Weight Bearing Status Weight Bearing Status Weight Bear as Tolerated M3 PT-IP Subjective Start: 03/06/19 15:42 Freq: NEEDED Status: Active Protocol: Document 03/08/19 11:55 (Rec: 03/08/19 12:16 [id number]) Subjective Physical Therapy Visit Type Type Treatment Note Visit Start Time 11:55 Visit Stop Time 12:08 Total Visit Minutes 13 Number of SKIDDER Visits 0 Physical Therapy Visit Comments Patient Comments Pt just woke up from a nap but does not want to sit up due to pain. Pt states she would like to walk. Therapy Pain Assessment Pain When Pain Assessed During Mobility Pain Present Pain Present Pain Reported Location Left Leg Intensity 7 Scale Used Numeric (1 - 10) Lower Back Intensity 7 Scale Used Numeric (1 - 10) M4 PT-IP Mobility and Gait Start: 03/06/19 15:42 Freq: NEEDED Status: Active Protocol: Document 03/08/19 11:55 [facility] (Rec: 03/08/19 12:16 [id number]) PT-Bed Mobility Assessment Rolling Type of Rolling Log Rolling Roll to Left Level of Assist Independent Supine to Sit Supine to Sit Standby Assistance Bedrails Sit to Supine Sit to Supine Standby Assistance Bedrails Scooting Scooting to Edge of Bed Standby Assistance PT-Transfer Assessment Sit to and From Stand Sit to and from Stand Standby Assistance Equipment Transfer Assistive Device Gait Belt Front Wheeled Walker Orthotic/Prosthetic Devices or Brace: No Transfers Transfer Destination Bed Comments Mobility Comments Pt log roll to left twice for supine <> sit independently. Gait Assessment Gait Gait Assistance Required: Standby Assistance Distance (Feet) 85 Able to Maintain Weight Bearing Status Yes During Gait Assistive Devices Assistive Device Gait Belt Front Wheeled Walker Orthotic/Prosthetic Devices or Brace: No Gait Deviations General Gait Pattern Antalgic Decreased Stride Length Flexed Trunk Factors Limiting Gait Function Factors Limiting Gait Function Decreased Activity Tolerance Decreased Strength Limited Range of Motion Pain Comments Gait Comments Pt was able to amb from EOB to hallway and returned to bed for a total of 85 feet CGA FWW . Pt presents R foot drag and increased LLE due to pain and weakness. PT-Balance Assessment Sitting Balance and Reactions Static Sitting Balance Ability Normal Dynamic Sitting Balance Ability Normal Standing Balance and Reactions Static Standing Balance Ability Fair Dynamic Standing Balance Ability Fair Device Used FWW M5 PT-IP Objective Assessments Start: 03/06/19 15:42 Freq: NEEDED Status: Active Protocol: Document 03/06/19 15:45 LR (Rec: 03/06/19 15:54 LR [email or web address]) Orientation Orientation/Cognition Level of Alertness Alert Strength Lower Extremity Strength Assessment Bilaterally Impaired M6 PT-IP Treatment Start: 03/06/19 15:42 Freq: NEEDED Status: Active Protocol: Document 03/06/19 15:45 [facility] (Rec: 03/06/19 15:54 [facility] [id number]) Physical Therapy Treatment Education Education Provided Precautions Safety Other Treatments Other Treatment Performed Discussed home shower chair need possibly M7 PT-IP Assessment and Plan Start: 03/06/19 15:42 Freq: NEEDED Status: Active Protocol: Document 03/08/19 11:55 [facility] (Rec: 03/08/19 12:16 HH [id number]) PT Summary Assessment and Plan Summary Impairments Pain ROM Strength Balance Transfers Gait Activity Tolerance Assessment Summary Pt presents R foot drag and increased LLE WB during amb. Pt c/o increased LE weakness and she is going to have back sx tomorrow in the morning. Reviewed postop precautions with pt today. Goals Bed Mobility Goal Independent Transfer Goal Independent Gait Goal Independent Four Wheel Walker Gait Distance 150ft w/least restrictive device Other Goals up/down 5 steps without rail SBA Frequency of Treatment Frequency Of Treatment Once a Day Treatment Plan Physical Therapy Treatment Plan Bed Mobility Training Transfer Training Gait Training Therapeutic Exercise Balance Retraining Discharge Planning Hot or Cold Pack Neuromuscular Re-ed Manual Therapy Other Recommendations and Next Treatment Reassessment post op Focus Recommendations To Nursing Amount of Assist Needed Standby Assistance 1 Person Assist Discharge Recommendations PT Discharge Recommendations Home with Assistance SNF Rehab Other Discharge Recommendations Home VS SNF need assesment after surgery.
--- NOTE | 2019-03-08 12:33 | PM.PN.1 ---
Subjective Date Patient Seen: 03/08/19 Interval history: Sherry Jones is a 43-year-old female with a past medical history significant for degenerative disc disease and lumbar stenosis with chronic back pain, morbid obesity, probable metabolic syndrome with polycystic ovarian syndrome and hirsutism who presented for severe worsening lumbar back pain with difficulty ambulating. The patient is resting in bed comfortably. Her mother and brother are present in the room. Her mother inquired about possible PCOS and hirsutism and discussed in conditions and treatment in detail. Both the patient and her mother became quite emotionally labile as she has been living with this condition (male pattern hair growth and baldness for quite some time). She continues to have intermittent right leg shooting pain and weakness. Her pain is in an L5-S1 distribution. She now reports mild numbness of medial aspect of lower thigh. She denies saddle anesthesia or bowel or and bladder incontinence. Otherwise she has no new complaints and denies headache, shortness of breath, chest pain, abdominal pain, nausea, vomiting, fever, chills, dysuria, diarrhea or constipation. She is voiding and eliminating without difficulty. She is up ambulating minimally with assistance and PT/OT. She is planned for surgery tomorrow 03/09/2019. Exam Vital Signs (past 8 hours): - 03/08/19 15:35 03/08/19 16:54 03/08/19 20:00 Temperature 98.2 F Pulse Rate 86 Respiratory Rate 18 Blood Pressure 133/79 Pulse Oximetry 94 97 98 Oxygen Delivery Method Room Air Oxygen Flow Rate 0 Narrative Exam Narrative: General: Middle-aged female lying in bed and in no acute distress, well-developed, well-nourished, emotionally labile but appropriately interactive. HEENT: Normocephalic, atraumatic. External ears without defect. Pupils equal, round, and reactive to light. Anicteric sclerae, moist conjunctivae, and no lid lag. Neck: Supple with full range of motion. No lymphadenopathy or thyromegaly. Cardiovascular: Regular rate and rhythm without murmurs, rubs, or gallops appreciated. Pulmonary: Clear to auscultation bilaterally without crackles, wheezes, or rhonchi. Normal respiratory effort with no use of accessory muscles. Abdomen: Soft, obese, bowel sounds present, non-tender, non-distended. No hepatosplenomegaly or masses appreciated. Extremities: No clubbing, cyanosis, or edema. Skin: Normal temperature, turgor, and texture; no rash, ulcers, or subcutaneous nodules appreciated. Neurological: Cranial nerves grossly intact. Bilateral lower extremity weakness +4/5 RLE>LLE. Psychiatric: Depressed mood and normal affect. Emotionally labile. Alert and oriented to person, place, and time. Objective Labs Result Diagrams: 03/10/19 05:54 03/09/19 05:52 Assessment & Plan Assessment & Plan narrative: Sherry Jones is a 43-year-old female with a past medical history significant for degenerative disc disease and lumbar stenosis with chronic back pain, morbid obesity, probable metabolic syndrome with polycystic ovarian syndrome and hirsutism who presented for severe worsening lumbar back pain with difficulty ambulating. 1. Acute on chronic lumbosacral spondylosis with radiculopathy, present on admission. Active. -MRI lumbar spine demonstrated multilevel, multifactorial lumbar spondylosis L1-S1. Findings more severe at L5-S1. Overall, interval progression of the degenerative disc disease of the lumbar spine (compared to MRI dated 2011). No acute abnormalities identified in the lumbar spine. -Continue physical therapy and occupational therapy evaluation and treatment. -Consulted MEAT CUTTING TEACHER to evaluate for rehab options. -Consulted Orthopedic surgery, Dr. Mathias, who plans to perform extensive lumbar surgery including laminectomy, foraminectomy, and fusion on 03/09/2019. -Continue pain control with Tylenol 650 mg every 6 hours as needed pain, started Gabapentin 300 mg twice daily and may titrate upwards, Baclofen 5 mg 3 times daily and oxycodone 5-10 mg every 4 hours per ortho. Received Toradol 30 mg IV q.6 hours x5 doses. Discontinued. 2. Leukocytosis, acuity unclear, present on admission. Resolved. -Likely reactive; recently received steroids; no signs of SIRS, sepsis, or hemodynamic instability; trend WBC w/ routine lab 3. Acute hyperglycemia, present on admission. Resolved. -Likely glucocorticoid induced and reactive. Recently received steroids injections for lumbar pain, x3 in the past 30-45 days. -No prior diagnosis of diabetes. No family history of diabetes. Patient is morbidly obese with apparent central obesity, which predisposes her to diabetes. -Hemoglobin A1c within normal limits at 5.5%. 4. Acute hypovolemia, present on admission. Resolved. -Received NS at 75 mL/hr until adequately hydrated then discontinued. 5. Acute situational depression, present on admission. Active. -Patient is having a difficult time coping with pain and decreased mobility, and fear of not being to ambulate indefinitely. Denies thoughts of harming self or others. -Recently started on Wellbutrin 75 mg twice daily, given patient's overall body mass this dose would likely need to be increased. -Patient started on gabapentin, which will also help with depression symptoms. 6. Morbid obesity, chronic, present on admission. Stable. -Initial BMI 40.7. -Discussed in depth and recommended lifestyle modification including: diet and exercise in future. 7. Probable PCOS and hirsutism, present on admission. Stable. -Patient was under the impression that anesthesia from previous surgery caused hair loss and male pattern hair growth. Previous history of possible miscarriage in the past. -Discussed PCOS and hirsutism in detail. Patient has centripetal obesity without metabolic syndrome diabetes, hyperlipidemia, or hypertension but is at high risk. Disposition: Patient likely to discharge in several days once she undergoes extensive lumbar surgery. Undoubtedly will need senior living facility for rehabilitation. Quality VTE Deep Vein Thrombosis/Pulmonary Embolism Present on Admission: No
[2019-03-08] MEDS: LIDOCAINE PATCH 1 EACH ADH..PATCH 2 EACH TOP (12:59)
--- NOTE | 2019-03-08 13:49 | OT.IP.TRT ---
Current Diagnoses Radiculopathy, lumbar region (03/05/19) Surgery Performed Operation Date: 03/09/19 07:45 <No data on this case meets the specified criteria> Occupational Therapy Treatment Note M2 OT-IP Current Condition Start: 03/07/19 14:41 Freq: Status: Active Protocol: Document 03/07/19 11:22 PJM (Rec: 03/07/19 15:09 PJM [id number]) Occupational Therapy Current Condition Current Condition Evaluation Date 03/07/19 Treatment Diagnosis decr'd self care, mobility due to severe back pain w/surgery planned 11/09/18 Diagnosis Onset Date 03/05/19 Post Operative Precautions Lumbar Precautions Log Roll No Twisting Limit Bending Lifting Restriction of 10 lbs Gait Belt above Incisional Area Other Precautions provided spinal surgery educational handout for pt review M3 OT- IP Subjective and Pain Start: 03/07/19 14:41 Freq: Status: Active Protocol: Document 03/08/19 13:47 PJM (Rec: 03/08/19 13:49 PJM [id number]) OT- Subjective Occupational Therapy Visit Type Type Administrative Note Notes Will hold OT services today. Pt scheduled for surgery tomorrow for multilevel lumbar fusion. Will await post op orders. No charge.
[2019-03-08] MEDS: OXYCODONE IR 5 MG TABLET 10 MG PO ×2 (17:30→23:39)
[2019-03-08] MEDS: LACTATED RINGERS 1,000 ML 100 ML IV (20:47)
[2019-03-08] MEDS: HEPARIN 5,000 UNIT/ML VIAL 5000 UNIT SUBCUT (20:54)
--- NOTE | 2019-03-08 21:33 | P.PN_ITS ---
Subjective Date Patient Seen: 03/08/19 Interval history: Sherry Jones is a 43-year-old female with a past medical history significant for degenerative disc disease and lumbar stenosis with chronic back pain, morbid obesity, probable metabolic syndrome with polycystic ovarian syndrome and hirsutism who presented for severe worsening lumbar back pain with difficulty ambulating. The patient is resting in bed comfortably. Her mother and brother are present in the room. Her mother inquired about possible PCOS and hirsutism and discussed in conditions and treatment in detail. Both the patient and her moth er became quite emotionally labile as she has been living with this condition (male pattern hair growth and baldness for quite some time). She continues to have intermittent right leg shooting pain and weakness. Her pain is in an L5-S1 distribution. She now reports mild numbness of medial aspect of lower thigh. She denies saddle anesthesia or bowel or and bladder incontinence. Otherwise she has no new complaints and denies headache, shortness of breath, chest pain, abdominal pain, nausea, vomiting, fever, chills, dysuria, diarrhea or constipation. She is voiding and eliminating without difficulty. She is up ambulating minimally with assistance and PT/OT. She is planned for surgery [facility] 03/09/2019. Exam Vital Signs (past 8 hours): - 03/08/19 15:35 03/08/19 16:54 03/08/19 20:00 Temperature 98.2 F Pulse Rate 86 Respiratory Rate 18 Blood Pressure 133/79 Pulse Oximetry 94 97 98 Oxygen Delivery Method Room Air Oxygen Flow Rate 0 Narrative Exam Narrative: General: Middle-aged female lying in bed and in no acute distress, well- developed, well-nourished, emotionally labile but appropriately interactive. HEENT: Normocephalic, atraumatic. External ears without defect. Pupils equal, round, and reactive to light. Anicteric sclerae, moist conjunctivae, and no lid lag. Neck: Supple with full range of motion. No lymphadenopathy or thyromegaly. Cardiovascular: Regular rate and rhythm without murmurs, rubs, or gallops appreciated. Pulmonary: Clear to auscultation bilaterally without crackles, wheezes, or rhonchi. Normal respiratory effort with no use of accessory muscles. Abdomen: Soft, obese, bowel sounds present, non-tender, non-distended. No hepatosplenomegaly or masses appreciated. Extremities: No clubbing, cyanosis, or edema. Skin: Normal temperature, turgor, and texture; no rash, ulcers, or subcutaneous nodules appreciated. Neurological: Cranial nerves grossly intact. Bilateral lower extremity weakness +4/5 RLE>LLE. Psychiatric: Depressed mood and normal affect. Emotionally labile. Alert and oriented to person, place, and time. Objective Labs Result Diagrams: 03/10/19 05:54 03/09/19 05:52 Assessment & Plan Assessment & Plan narrative: Sherry Jones is a 43-year-old female with a past medical history significant for degenerative disc disease and lumbar stenosis with chronic back pain, morbid obesity, probable metabolic syndrome with polycystic ovarian syndrome and hirsutism who presented for severe worsening lumbar back pain with difficulty ambulating. 1. Acute on chronic lumbosacral spondylosis with radiculopathy, present on admission. Active. -MRI lumbar spine demonstrated multilevel, multifactorial lumbar spondylosis L1- S1. Findings more severe at L5-S1. Overall, interval progression of the degenerative disc disease of the lumbar spine (compared to MRI dated 2011). No acute abnormalities identified in the lumbar spine. -Continue physical therapy and occupational therapy evaluation and treatment. -Consulted EVENT STAFF to evaluate for rehab options. -Consulted Orthopedic surgery, Dr. Mathias, who plans to perform extensive lumbar s urgery including laminectomy, foraminectomy, and fusion on 03/09/2019. -Continue pain control with Tylenol 650 mg every 6 hours as needed pain, started Gabapentin 300 mg twice daily and may titrate upwards, Baclofen 5 mg 3 times daily and oxycodone 5-10 mg every 4 hours per ortho. Received Toradol 30 mg IV q.6 hours x5 doses. Discontinued. 2. Leukocytosis, acuity unclear, present on admission. Resolved. -Likely reactive; recently received steroids; no signs of SIRS, sepsis, or hemodynamic instability; trend WBC w/ routine lab 3. Acute hyperglycemia, present on admission. Resolved. -Likely glucocorticoid induced and reactive. Recently received steroids injections for lumbar pain, x3 in the past 30-45 days. -No prior diagnosis of diabetes. No family history of diabetes. Patient is morbidly obese with apparent central obesity, which predisposes her to diabetes. -Hemoglobin A1c within normal limits at 5.5%. 4. Acute hypovolemia, present on admission. Resolved. -Received NS at 75 mL/hr until adequately hydrated then discontinued. 5. Acute situational depression, present on admission. Active. -Patient is having a difficult time coping with pain and decreased mobility, and fear of not being to ambulate indefinitely. Denies thoughts of harming self or others. -Recently started on Wellbutrin 75 mg twice daily, given patient's overall body mass this dose would likely need to be increased. -Patient started on gabapentin, which will also help with depression symptoms. 6. Morbid obesity, chronic, present on admission. Stable. -Initial BMI 40.7. -Discussed in depth and recommended lifestyle modification including: diet and exercise in future. 7. Probable PCOS and hirsutism, present on admission. Stable. -Patient was under the impression that anesthesia from previous surgery caused hair loss and male pattern hair growth. Previous history of possible miscarriag e in the past. -Discussed PCOS and hirsutism in detail. Patient has centripetal obesity without metabolic syndrome diabetes, hyperlipidemia, or hypertension but is at high risk. Disposition: Patient likely to discharge in several days once she undergoes extensive lumbar surgery. Undoubtedly will need correction facility for rehabilitation. Quality VTE Deep Vein Thrombosis/Pulmonary Embolism Present on Admission: No
[2019-03-09] VITALS (21 sets, daily range): BP systolic 116–164; BP diastolic 75–104; PULSE 71–106; RESP 14–17; TEMP 36.4–37.9; O2SAT 90–100; BMI 41.3
--- NOTE | 2019-03-09 | DI.RAD.S_ITS ---
PROCEDURE: XR LUMBAR SPINE 2-3V INDICATIONS: 2-3 , 3-4 TLIF TECHNIQUE: Single intraoperative fluoroscopic views of the lumbar spine were acquired. COMPARISON: [facility], MR, L-SPINE WITHOUT CONTRAST, 11/04/2011, 20:22. [facility], MR, MR LUMBAR SPINE WO CON, 03/05/2019, 15:02. [facility], CR, L-SPINE 2-3 VIEWS, 10/24/2011, 17:50. FINDINGS: Bones: Single fluoroscopic view demonstrates intraoperative localization at L5-S1. IMPRESSION: Intraoperative fluoroscopic localization of L5-S1. Dictated by: Linda Wagner M.D. on 03/09/2019 at 12:43 Approved by: Linda Wagner M.D. on 03/09/2019 at 12:44
[2019-03-09] MEDS: OXYCODONE IR 5 MG TABLET 10 MG PO ×4 (04:03→23:50)
[2019-03-09 06:39] LABS: Alanine Aminotransferase 50 IU/L (9-52); Albumin 3.8 g/dL (3.5-5.0); Albumin Globulin Ratio 1.2 (1.0-2.8); Alkaline Phosphatase 57 U/L (38-126); Aspartate Aminotransferase 24 IU/L (14-36); BUN Creatinine Ratio 17.1 (6-22); Bilirubin Total 0.3 mg/dL (0.2-1.3); Blood Urea Nitrogen 12 mg/dL (7-17); Calcium 8.7 mg/dL (8.4-10.2); Carbon Dioxide 26 mmol/L (22-32); Chloride 102 mmol/L (98-107); Estimated Glomerular Filt Rate > 60.0 mL/min (>60); Globulin 3.1 g/dL (1.7-4.1); Glucose 95 mg/dL (70-100); HEMOLYSIS < 15 (0-50); Magnesium 2.2 mg/dL (1.6-2.3); Potassium 4.1 mmol/L (3.4-5.1); Sodium 136 mmol/L (137-145); Total Protein 6.9 g/dL (6.3-8.2)
[2019-03-09 06:42] LABS: Hematocrit 43.8 % (36-46); Hemoglobin 14.6 g/dL (12.0-16.0); Mean Corpuscular HGB Conc 33.3 % (30-36); Mean Corpuscular Hemoglobin 30.1 PG (26-34); Mean Corpuscular Volume 90.4 fL (80-100); Platelet Count 335 X10^3/uL (150-400); Red Blood Cell Count 4.85 X10^6/uL (4.0-5.2); Red Cell Distribution Width 14.4 % (11.6-14.8); White Blood Cell Count 9.6 X10^3/uL (4.5-11.0)
[2019-03-09] MEDS: LACTATED RINGERS 1,000 ML 100 ML IV ×2 (07:19→10:54)
[2019-03-09 07:36] LABS: Add Manual Diff / Slide Review YES
--- NOTE | 2019-03-09 07:36 | PC.NURSE ---
Day shift: Pt not on this unit at this time.
--- NOTE | 2019-03-09 07:50 | PM.PREOP ---
Pre-operative Note Interval Note History & Physical reviewed/Exam performed by Physician: Yes Changes to H&P: No
[2019-03-09] MEDS: CEFAZOLIN 2 GM/100 ML FROZ.PIGGY IV ×3 (08:00→23:54)
[2019-03-09 08:24] LABS: Neutrophils Absolute Manual 5664 /uL (3000-5900); Total Cells Counted 100
[2019-03-09 08:25] LABS: RBC Morphology Normal Morphology
--- NOTE | 2019-03-09 08:28 | SUR.OPER ---
Prone on spine table, head in foam head support, padded chest and pelvic supports, gel pad at knees, lower legs supported by pillows; nipples, genitalia and toes free of pressure, arms secured on foam padded arm boards at <90 degrees abduction. Tape over blanket at thigh secured to table.
[2019-03-09] MEDS: BUPIVACAINE LIPOSOME 266 MG/20 ML VIAL INJ (08:49)
[2019-03-09] MEDS: BUPIVACAINE 0.25% W/ EPI (PF) 10 ML VIAL 30 ML INJ (08:49)
[2019-03-09] MEDS: ACETAMINOPHEN IV 1,000 MG/100 ML VIAL 400 MG IV (08:51)
--- NOTE | 2019-03-09 09:03 | PC.NURSE ---
Day shift: Pt remains off of AC unit at this time.
--- NOTE | 2019-03-09 10:04 | PC.NURSE ---
Day shift: Per ZINA Daniel ok to not give AM meds. Pt has not been in room and is in surgery until this afternoon.
--- NOTE | 2019-03-09 10:53 | PC.NURSE ---
Day shift:' Pt remains off AC unit at this time.
--- NOTE | 2019-03-09 12:18 | PM.OP.1 ---
Operative Date/Time/Diagnoses Date of procedure: 03/09/19 Time of procedure: 08:19 Pre-op diagnosis: 1. Lumbar post laminectomy syndrome L2-S1 2. Lumbar spinal stenosis with neurogenic claudication L2-S1 3. Lumbar spondylosis with radiculopathy L2-S1 Post-op diagnosis: same Procedure & Clinicians Procedure: 1. L2-3, L3-4 Postero-lateral and posterior interbody fusion 2. L2-3, L3-4 interbody cage placement. 3. L2-3, L3-4 decompressive laminectomy with bilateral facetecomies 4. L2-3, L3-4 Posterior segmental instrumentation 5. L5-S1 left microdiscectomy with hemilaminectomy 6. Runge of bone marrow from iliac crest 7. Utilization of microsurgical technique and operating microscope Same procedure as scheduled: Yes Indications: Patient has been having chronic back pain and worsening lumbar radiculopathy. Patient had previous lumbar laminectomy from L2-S1 with mildly improved symptoms. Patient has been having severe worsening of her symptoms over the last month. Patient has presented to the emergency room 3 times over the last month for her back pain and radiating pain down her legs with weakness down both legs and difficulty walking. Patient was admitted to the inpatient hospital. Patient has been unable to ambulate due to her severe weakness in her legs. Patient failed multiple conservative management with worsening pain weakness and numbness in her lower extremity. Patient has been having difficulty performing activity of daily living. After discussing risks benefits of treatment options, patient elected proceed with surgery. Surgeon: Carmita Mathias Respiratory Support Technician: Dianna Sheets Click Yes if Unassisted: No Anesthesia Type: General Operative Notes Closure Type: primary Specimen(s): none sent Prosthetic devices, grafts, tissues, transplants, or devices: Globus Revolve screws, Rise cages Applied: catheter Estimated Blood Loss (mL): 100 Blood products transfused: none Procedure in detail: Patient was seen in the preoperative area. Risks and benefits of the surgery was discussed with the patient. Informed consent was obtained from the patient and placed in the chart. Surgical site was marked. Patient was taken to the operative room. General anesthesia was administered. Prophylactic antibiotic was given to the patient less than 30 min before the incision was made. Patient was placed into a prone position on the Aj table. Patient's back was then prepped and draped in the sterile fashion. Time-out was performed at this time. Using AP and lateral C-arm imaging the interval between L2-S1 was identified and marked on patient's back. A 2 inch incision 2 in from midline was made on the left side first over the L2-4 levels. The fascia was incised in line with skin incision. Globus MARS retractors was placed inside the incision and docked onto the L2 and L3 lamina. Using microsurgical technique and operating microscope, a L2 and L3 laminectomy and L2-3 L3-4 facetectomy was performed using a Kerrison rongeur. During the process of decompression more than 75% of bilateral L2-3, L3-4 facets were removed in order to decompress the spinal canal and the lateral recess. Patient was found have significant epidural scar tissue from previous laminectomies with wide decompression. The scar tissue was significantly adherent to the dura. The facetectomy and laminectomy was needed to fully decompress the neurologic structures without compromising the dura and neurologic structures. The L2-3, L3-4 level was grossly unstable after the decompression was completed and requiring the fusion procedure. The disc space at L2-3, L3-4 was identified. And a total diskectomy was performed at L2-3, L3-4 level. The endplates were decorticated using a rasp and shaver. The total diskectomy and decortication was performed at L2-3, L3-4 level in order to to accomplish a L2-3, L3-4 fusion. The local bone from the laminectomy and facetectomy was saved for local bone grafting. After the total diskectomy and decortication was completed, DBM bone graft material was combined with local bone that was harvested earlier. At this time, a separate skin is incision was made over the iliac crest. A Jamshidi needle was inserted into the iliac crest through a separate skin incision. 5 cc of bone marrow aspiration was obtained through the separate skin incision using a Jamshidi needle from the iliac crest. The bone marrow aspiration was combined with local bone and the DBM bone grafting material. The bone grafting material was placed into the L2-3, L3-4 interbody space along with two cages, one expandable cage at each level. The cages were expanded to their maximum height using the torque limiting screwdriver. At this time, a separate skin incision was made over the L5-S1 level on the left just lateral to the mid-line. Dissection was made down to the level of the lamina. Globus mars retractor was inserted and docked onto the L5 lamina on the left. Using an operating microscope and the microsurgical technique, a laminotomy was performed at the L5 level. the thecal sac was retracted medially to expose a large herniated fragment of disc. The disc fragment was removed using a pituitary and micro curettes. After the micro dissection was completed the area medial lateral superior inferior today area of microdissection was explored using a neuro probe. No other additional fragments of disc was identified. At this time a mirror image incision was made on the right side. The fascia was incised in line with the skin incision. Globus MARS retractor was inserted and docked onto the L2-3, L3-4 posterolateral gutter. Using the power drill, posterior-lateral decortication was performed at L2-3, L3-4 level until bleeding cortical bone was identified. The remaining bone grafting material was placed into the L2-3, L3-4 posterior lateral gutter he order to accomplish posterolateral fusion at the L2-3, L3-4 levels. Using the double C-arm technique, pedicle screws were placed into the L2, L3, L4 pedicles bilaterally. This was done by placing the Jamshidi needle into the pedicles, then placing the guidewires over the Jamshidi needle, and finally placing the cannulated screws over the guidewires bilaterally. After the pedicle screws were placed, 2 titanium rods was locked into the heads of the pedicle screws using locking caps and torque limiting screwdriver. Total 6 pedicles screws were placed. After all the hardware was placed, and confirmed with AP and lateral C-arm imaging, the wound was then irrigated with sterile normal saline and packed with Ray-Yvette gauze for 3 min to accomplish hemostasis. After the gauze was removed the deep fascia was closed with #1 Vicryl suture. The subcutaneous layer was closed with 2-0 Vicryl. The skin was closed with skin dio. Patient tolerated the procedure well. There were no complications. Complications: none Condition: stable Disposition: PACU Plan for aftercare: Admit to inpatient hospital
[2019-03-09] MEDS: fentaNYL 100 MCG/2 ML INJ 50 MCG IV ×2 (12:50→12:56)
--- NOTE | 2019-03-09 13:03 | SUR.PHASEI ---
correction to Left leg pain in Phase 1, this author (RN) meant to address the low back during initial assessment, not the left lower leg; pt. comment to this author (RN) regarding LLE, I can't tell
[2019-03-09] MEDS: HYDROMORPHONE 2 MG INJ 0.5 MG IV ×7 (13:10→13:40)
--- NOTE | 2019-03-09 13:21 | SUR.PHASEI ---
Pt. continues to rate pain level at an 8 (pain scale 0-10), medicated thus far with 100mg fentanyl IV and 1 mg Dilaudid IV; pt. off and on with sleeping, snoring; easily wakens. O2 required due to sedation level. Will continue to medicate as ordered and notify anesthesia if indicated regarding pain level.
--- NOTE | 2019-03-09 13:30 | SUR.PHASEI ---
Pt. able to tell this author (RN) that she (the pt.) is not experiencing pain to LLE
--- NOTE | 2019-03-09 13:52 | PC.NURSE ---
Day shift: Report given to this documentation writer at approx 1340. Awaiting arrival of Pt.
--- NOTE | 2019-03-09 13:54 | PC.NURSE ---
Day shift: Arrived on unit at approx 1600. Pain 05/10. Will medicate when orders verified. 2L NC. HR 105. BP ok. A&Ox3. Oriented to room and call light. Pt's mother at bedside for support. Will continue to monitor.
--- NOTE | 2019-03-09 13:57 | OT.IP.TRT ---
Current Diagnoses Radiculopathy, lumbar region (03/05/19) Surgery Performed Operation Date: 03/09/19 07:45 Actual Procedures p L2-3, L3-4 TLIF, L3-4, L4-5 Hemilami - Carmita Mathias MD Occupational Therapy Treatment Note M2 OT-IP Current Condition Start: 03/07/19 14:41 Freq: Status: Active Protocol: Document 03/07/19 11:22 PJM (Rec: 03/07/19 15:09 PJM [id number]) Occupational Therapy Current Condition Current Condition Evaluation Date 03/07/19 Treatment Diagnosis decr'd self care, mobility due to severe back pain w/surgery planned 11/09/18 Diagnosis Onset Date 03/05/19 Post Operative Precautions Lumbar Precautions Log Roll No Twisting Limit Bending Lifting Restriction of 10 lbs Gait Belt above Incisional Area Other Precautions provided spinal surgery educational handout for pt review M3 OT- IP Subjective and Pain Start: 03/07/19 14:41 Freq: Status: Active Protocol: Document 03/09/19 13:57 PJM (Rec: 03/09/19 14:05 PJM [id number]) OT- Subjective Occupational Therapy Visit Type Type Patient Unavailable Notes OT on hold today as pt to surgery for multilevel lumbar fusion. Will await post op orders.
[2019-03-09] MEDS: SODIUM CHLORIDE 0.9% 1,000 ML 100 ML IV (14:11)
[2019-03-09] MEDS: HYDROMORPHONE 0.5 MG INJ IV ×3 (14:18→22:17)
[2019-03-09] MEDS: hydrOXYzine pamoate 25 MG CAPSULE PO ×2 (14:18→20:30)
--- NOTE | 2019-03-09 15:29 | PT.IPTN ---
Current Diagnoses Radiculopathy, lumbar region (03/05/19) Surgery Performed Operation Date: 03/09/19 07:45 Actual Procedures p L2-3, L3-4 TLIF, L3-4, L4-5 Tom Mtahias MD Physical Therapy Treatment Note M2 PT-IP Current Condition Start: 03/06/19 15:42 Freq: NEEDED Status: Active Protocol: Document 03/06/19 15:45 LR (Rec: 03/06/19 15:54 [facility] [email or web address]) Physical Therapy Current Condition Current Condition Evaluation Date 03/06/19 Treatment Diagnosis LBP Precautions Lumbar Precautions Log Roll Limit Bending Weight Bearing Status Weight Bearing Status Weight Bear as Tolerated M3 PT-IP Subjective Start: 03/06/19 15:42 Freq: NEEDED Status: Active Protocol: Document 03/09/19 15:27 AB (Rec: 03/09/19 15:29 AB [id number]) Subjective Physical Therapy Visit Type Notes nurse in room with pt and stated that pt is not ready for PT at this time. pt just came up from recovery room after her back surgery and is still drowsy. talked to pt and pt drowsy and stated that she is not ready to do PT.
--- NOTE | 2019-03-09 18:38 | P.PN_ITS ---
Subjective Date Patient Seen: 03/09/19 Interval history: Sherry Jones is a 43-year-old female with a past medical history significant for degenerative disc disease and lumbar stenosis with chronic back pain, morbid obesity, probable metabolic syndrome with polycystic ovarian syndrome and hirsutism who presented for severe worsening lumbar back pain with difficulty ambulating. The patient is resting in bed comfortably now postop extensive lumbar surgery. Her mother is present in the room. She reports mild discomfort in her back. Otherwise has no complaints. She denies headache, shortness of breath, chest pain, abdominal pain, nausea, vomiting, fever, chills, dysuria, diarrhea or constipation. Exam Vital Signs (past 8 hours): - 03/09/19 12:30 03/09/19 12:35 03/09/19 12:40 Temperature 97.6 F Pulse Rate 101 H 94 H 97 H Respiratory Rate 17 16 17 Blood Pressure 116/80 121/75 135/93 H Pulse Oximetry 94 93 96 03/09/19 12:50 03/09/19 12:55 03/09/19 13:05 Temperature Pulse Rate 106 H 105 H 98 H Respiratory Rate 17 17 16 Blood Pressure 137/104 H 157/101 H 140/82 Pulse Oximetry 96 95 96 03/09/19 13:15 03/09/19 13:24 03/09/19 13:29 Temperature Pulse Rate 93 H 92 H Respiratory Rate 17 17 Blood Pressure 151/82 H 162/91 H Pulse Oximetry 97 98 97 03/09/19 13:31 03/09/19 13:39 03/09/19 13:45 Temperature 97.9 F Pulse Rate 89 91 H Respiratory Rate 17 17 17 Blood Pressure 133/82 139/92 H 145/85 H Pulse Oximetry 98 99 98 03/09/19 13:55 03/09/19 14:38 03/09/19 15:05 Temperature 98.9 F 100.3 F H 98.4 F Pulse Rate 86 90 88 Respiratory Rate 14 16 Blood Pressure 141/95 H 131/91 H 160/100 H Pulse Oximetry 100 98 96 03/09/19 16:05 03/09/19 17:05 03/09/19 18:02 Temperature 99.0 F 98.3 F Pulse Rate 92 H 88 98 H Respiratory Rate 16 17 16 Blood Pressure 158/99 H 164/89 H Pulse Oximetry 95 96 99 Fraction of Inspired Oxygen 24 Oxygen Delivery Method Nasal Cannula Oxygen Flow Rate 1 Narrative Exam Narrative: General: Middle-aged female lying in bed and in no acute distress, well-developed, well-nourished, mildly somnolent due to anesthesia as she is immediately postoperative. HEENT: Normocephalic, atraumatic. External ears without defect. Pupils equal, round, and reactive to light. Anicteric sclerae, moist conjunctivae, and no lid lag. Neck: Supple with full range of motion. No lymphadenopathy or thyromegaly. Cardiovascular: Regular rate and rhythm without murmurs, rubs, or gallops appreciated. Pulmonary: Clear to auscultation bilaterally without crackles, wheezes, or rhonchi. Normal respiratory effort with no use of accessory muscles. Abdomen: Soft, obese, bowel sounds present, non-tender, non-distended. No hepatosplenomegaly or masses appreciated. Extremities: No clubbing, cyanosis, or edema. Skin: Normal temperature, turgor, and texture; no rash, ulcers, or subcutaneous nodules appreciated. Neurological: Cranial nerves grossly intact. Previous bilateral lower extremity weakness +4/5 RLE>LLE but did not evaluate today. Psychiatric: Mildly somnolent as she has immediately postoperative. Objective Labs Result Diagrams: 03/09/19 05:52 03/09/19 05:52 Labs: Laboratory Results - last 24 hr 03/09/19 03/09/19 05:52 05:52 WBC 9.6 RBC 4.85 Hgb 14.6 Hct 43.8 MCV 90.4 MCH 30.1 MCHC 33.3 RDW 14.4 Plt Count 335 Neut % (Auto) Not Reportable Lymph % (Auto) Not Reportable [place]win % (Auto) Not Reportable Eos % (Auto) Not Reportable Baso % (Auto) Not Reportable Lymph # (Auto) Not Reportable [place]win # (Auto) Not Reportable Baso # (Auto) Not Reportable Total Counted 100 Seg Neutrophils % 55.0 Band Neutrophils % 4.0 Lymphocytes % (Manual) 32.0 Atypical Lymphs % 3.0 H Monocytes % (Manual) 4.0 Eosinophils % (Manual) 2.0 Neutrophils # (Manual) 5664 RBC Morphology Normal morphology Sodium 136 L Potassium 4.1 Chloride 102 Carbon Dioxide 26 BUN 12 Creatinine 0.70 Estimated GFR > 60.0 BUN/Creatinine Ratio 17.1 Glucose 95 Calcium 8.7 Magnesium 2.2 Total Bilirubin 0.3 AST 24 ALT 50 Alkaline Phosphatase 57 Total Protein 6.9 Albumin 3.8 Globulin 3.1 Albumin/Globulin Ratio 1.2 Assessment & Plan Assessment & Plan narrative: Sherry Jones is a 43-year-old female with a past medical history significant for degenerative disc disease and lumbar stenosis with chronic back pain, morbid obesity, probable metabolic syndrome with polycystic ovarian syndrome and hirsutism who presented for severe worsening lumbar back pain with difficulty ambulating. 1. Acute on chronic lumbosacral spondylosis with radiculopathy now status post extensive lumbar surgery, present on admission. Active. -MRI lumbar spine demonstrated multilevel, multifactorial lumbar spondylosis L1- S1. Findings more severe at L5-S1. Overall, interval progression of the degenerative disc disease of the lumbar spine (compared to MRI dated 2011). No acute abnormalities identified in the lumbar spine. -Continue physical therapy and occupational therapy evaluation and treatment. -Consulted Orthopedic surgery, Dr. Mathias, who performed extensive lumbar surgery including laminectomy, foraminectomy, and fusion today. -Continue pain control and postoperative management per orthopedic surgeons. 2. Leukocytosis, acuity unclear, present on admission. Resolved. -Likely reactive; recently received steroids; no signs of SIRS, sepsis, or hemodynamic instability; trend WBC w/ routine lab 3. Acute hyperglycemia, present on admission. Resolved. -Likely glucocorticoid induced and reactive. Recently received steroids injections for lumbar pain, x3 in the past 30-45 days. -No prior diagnosis of diabetes. No family history of diabetes. Patient is mor bidly obese with apparent central obesity, which predisposes her to diabetes. -Hemoglobin A1c within normal limits at 5.5%. 4. Acute hypovolemia, present on admission. Resolved. -Received NS at 75 mL/hr until adequately hydrated then discontinued. 5. Acute situational depression, present on admission. Active. -Patient is having a difficult time coping with pain and decreased mobility, and fear of not being to ambulate indefinitely. Denies thoughts of harming self or others. -Recently started on Wellbutrin 75 mg twice daily, given patient's overall body mass this dose would likely need to be increased. -Patient started on gabapentin, which will also help with depression symptoms. 6. Morbid obesity, chronic, present on admission. Stable. -Initial BMI 40.7. -Discussed in depth and recommended lifestyle modification including: diet and exercise in future. 7. Probable PCOS and hirsutism, present on admission. Stable. -Patient was under the impression that anesthesia from previous surgery caused hair loss and male pattern hair growth. Previous history of possible miscarriage in the past. -Discussed PCOS and hirsutism in detail. Patient has centripetal obesity without metabolic syndrome diabetes, hyperlipidemia, or hypertension but is at high risk. -Recommend outpatient pelvic ultrasound, oral contraceptive to treat probable PCOS and spironolactone for androgen blockade to treat hirsutism. Patient was cleared for surgery and now has been switched to orthopedic surgery as primary. The patient is likely to discharge in several days to senior living facility for rehabilitation. Will sign off at this time but feel free to contact us with any further needs. Quality VTE Deep Vein Thrombosis/Pulmonary Embolism Present on Admission: No
[2019-03-09] MEDS: SENNOSIDES 8.6 MG TABLET 17.2 MG PO (20:29)
[2019-03-09] MEDS: DOCUSATE 100 MG CAPSULE PO (20:29)
[2019-03-10] MEDS: hydrOXYzine pamoate 25 MG CAPSULE PO ×2 (00:19→05:49)
[2019-03-10] MEDS: SODIUM CHLORIDE 0.9% 1,000 ML 100 ML IV (00:54)
[2019-03-10] MEDS: HYDROMORPHONE 0.5 MG INJ IV ×2 (01:34→06:42)
[2019-03-10] MEDS: OXYCODONE IR 5 MG TABLET 10 MG PO ×3 (02:45→08:39)
[2019-03-10 05:52] VITALS: BP 141/90; PULSE 83; RESP 16; TEMP 36.6; O2SAT 98
[2019-03-10 06:17] LABS: Hematocrit 37.8 % (36-46); Hemoglobin 12.6 g/dL (12.0-16.0)
[2019-03-10 08:00] VITALS: BP 160/87; PULSE 82; RESP 18; TEMP 36.9; O2SAT 96
[2019-03-10] MEDS: DOCUSATE 100 MG CAPSULE PO ×2 (08:39→21:28)
--- NOTE | 2019-03-10 09:20 | PT.IPRE ---
Current Diagnoses Radiculopathy, lumbar region (03/05/19) Surgery Performed Operation Date: 03/09/19 07:45 Actual Procedures p L2-3, L3-4 TLIF, L3-4, L4-5 Hemilami - Carmita Mathias MD Surgical History (Last Updated 03/06/19 @ 01:10 by TAYLOR Sigala) History of cervical spinal surgery (Chronic) Status post laminectomy Medical History (Last Updated 03/06/19 @ 01:10 by TAYLOR Sigala) Situational depression (Acute) Abnormal vaginal Pap smear (Chronic) Morbid obesity (Chronic) Back pain (Chronic) Physical Therapy Inpatient Evaluation/Re-Eval M1 PT/OT-IP Prior Functional Status Start: 03/06/19 15:42 Freq: NEEDED Status: Active Protocol: Document 03/10/19 09:20 AB (Rec: 03/10/19 12:57 AB [id number]) Medical Review Prior Functional Status Medical History Reviewed Yes Diet/Fluid Consistency Regular Communication able to make needs known Mobility and Gait pt stated that she is indpeendent with all mobilities and ambulation without AD Prior Functional Level (Other details) 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 Social History Household Members friend(s) Living Arrangements House Number of Floors (Floors) One Floor Number of Stairs To Enter/Railing? pt plans to stay at her friend 's house: info is regarding her friend's house Home Environment Standard Height Toilet Walk in Shower Home Equipment Four Wheel Walker Straight Cane Hand Held Shower M2 PT-IP Current Condition Start: 03/06/19 15:42 Freq: NEEDED Status: Active Protocol: Document 03/10/19 09:20 AB (Rec: 03/10/19 12:57 AB [id number]) Physical Therapy Current Condition Current Condition Evaluation Date 03/10/19 Treatment Diagnosis s/p L2-4 fusion/lami; L5S1 L microdiscectomy/hemilami; difficulty in walking Onset Date 03/05/19 Precautions Lumbar Precautions Log Roll No Twisting Limit Bending Lifting Restriction of 10 lbs Gait Belt above Incisional Area M3 PT-IP Subjective Start: 03/06/19 15:42 Freq: NEEDED Status: Active Protocol: Document 03/10/19 09:20 AB (Rec: 03/10/19 12:57 AB [id number]) Subjective Physical Therapy Visit Type Type Re-Evaluation Visit Start Time 09:20 Visit Stop Time 10:20 Total Visit Minutes 60 Number of METAL MIXER Visits 0 Physical Therapy Visit Comments Patient Comments pt agreeable to do PT Therapy Pain Assessment Pain When Pain Assessed At Rest Pain Present Pain Present Pain Reported Location Left Leg Intensity 7 Scale Used Numeric (1 - 10) Pain Management Techniques Apply Cold Re-positioning Timing of Activity with Medications M4 PT-IP Mobility and Gait Start: 03/06/19 15:42 Freq: NEEDED Status: Active Protocol: Document 03/10/19 09:20 AB (Rec: 03/10/19 12:57 AB [id number]) PT-Bed Mobility Assessment Rolling Type of Rolling Log Rolling Level of Assist Maximal Assistance 1 Person Assistance Supine to Sit Supine to Sit Maximum Assistance 2 Person Assistance Bedrails Scooting Scooting to Edge of Bed Maximum Assistance PT-Transfer Assessment Sit to and From Stand Sit to and from Stand Maximum Assistance 1 Person Assistance 2 Person Assistance Equipment Transfer Assistive Device Gait Belt Front Wheeled Walker Orthotic/Prosthetic Devices or Brace: No Transfers Transfer Destination Chair Transfer Technique Stand Step Pivot Transfer Ability Level of Assist Moderate Assistance 1 Person Assistance Gait Assessment Gait Gait Assistance Required: Moderate Assistance Distance (Feet) 8 Able to Maintain Weight Bearing Status Yes During Gait Assistive Devices Assistive Device Gait Belt Front Wheeled Walker Orthotic/Prosthetic Devices or Brace: No Gait Deviations General Gait Pattern Antalgic Decreased Stride Length Decreased Feet Clearance Factors Limiting Gait Function Factors Limiting Gait Function Decreased Activity Tolerance Decreased Sensation Decreased Strength Limited Range of Motion Pain Poor Balance Poor Safety Awareness PT-Balance Assessment Sitting Balance and Reactions Static Sitting Balance Ability Good Dynamic Sitting Balance Ability Fair Standing Balance and Reactions Static Standing Balance Ability Poor Dynamic Standing Balance Ability Poor Device Used FWW M5 PT-IP Objective Assessments Start: 03/06/19 15:42 Freq: NEEDED Status: Active Protocol: Document 03/10/19 09:20 AB (Rec: 03/10/19 12:57 AB [id number]) Orientation Orientation/Cognition Level of Alertness Alert Orientation Name Age Place Situation Language Function Ability No Deficits Noted Safety Awareness Decreased Safety Awareness Gross Range of Motion Lower Extremity ROM Assessment Within Functional Limits Strength Lower Extremity Strength Assessment Bilaterally Impaired Comments Strength Comments LLE: 3-/5 RLE: 3+/5 Coordination Assessment Gross Coordination Gross Coordination WNL Sensation Assessment Sensation Light Touch Intact Proprioception (Position) Intact Comments Sensation Comments intact light touch and proprioception when tested but c/o numbness on LE Muscle Tone Muscle Tone WNL Yes M6 PT-IP Treatment Start: 03/06/19 15:42 Freq: NEEDED Status: Active Protocol: Document 03/10/19 09:20 AB (Rec: 03/10/19 12:57 AB [id number]) Physical Therapy Treatment Education Education Provided Precautions Weight Bearing Status Post-Op Packet Safety M7 PT-IP Assessment and Plan Start: 03/06/19 15:42 Freq: NEEDED Status: Active Protocol: Document 03/10/19 09:20 AB (Rec: 03/10/19 12:57 AB [id number]) PT Summary Assessment and Plan Potential Rehabilitation Potential Fair Status of Condition at Evaluation Evolving Summary Impairments Pain ROM Strength Balance Coordination Sensation Tone Cognition Bed Mobility Transfers Gait Activity Tolerance Assessment Summary pt requiring 2 peson assist with mobility and can be anxious with mobility due to pain. pt will require SNF rehab to improve strength and independence. Goals Bed Mobility Goal Contact Guard Assistance Transfer Goal Contact Guard Assistance Front Wheeled Walker Gait Goal Contact Guard Assistance Front Wheel Walker Gait Distance 100 Days to Meet Goals 5 Frequency of Treatment Frequency Of Treatment Twice a Day Treatment Plan Physical Therapy Treatment Plan Bed Mobility Training Transfer Training Gait Training Therapeutic Exercise Balance Retraining Post Op Education Discharge Planning Hot or Cold Pack Neuromuscular Re-ed Coordination Retraining Manual Therapy Recommendations To Nursing Amount of Assist Needed 2 Person Assist Discharge Recommendations PT Discharge Recommendations SNF Rehab Equipment Needed for Home Before FWW if pt is going home Discharge
--- NOTE | 2019-03-10 09:45 | PM.PNPO.1 ---
Subjective Date Patient Seen: 03/10/19 Time Patient Seen: 09:45 Interval history: Patient is a 43 year old who is HD#5 and POD#1 s/p L2-3, L3-4 Postero-lateral and posterior interbody fusion and L5-S1 left microdiscectomy with Dr. Mathias. She continues to have inadequate pain control in the post op period similar to her pre op. She denies changes in her symptoms. Pain that is most bothersome is razor blade sensation in anterior thigh and incisional pain. She has not been out of bed and has a catheter in place. She is tolerating food. Denies chest pain, shortness of breath. Exam Vital Signs (past 8 hours): - 03/10/19 05:52 03/10/19 08:00 Temperature 98 F 98.4 F Pulse Rate 83 82 Respiratory Rate 16 18 Blood Pressure 141/90 H 160/87 H Pulse Oximetry 98 96 Fraction of Inspired Oxygen 24 Oxygen Delivery Method Room Air Oxygen Flow Rate 0 Narrative Exam Narrative: 43 year old female lying in bed. She is tearful and anxious. No acute distress. Alert and oriented. Dressing in place is clean, dry, and intact with minimal shadow drainage. Able to dorsiflex/plantar flex feet. Intact distal sensation. Pulses are symmetrical. Calves soft, nontender bilaterally. Objective Labs Result Diagrams: 03/10/19 05:54 03/09/19 05:52 Labs: Laboratory Results - last 24 hr 03/10/19 05:54 Hgb 12.6 Hct 37.8 Assessment & Plan Post-op Postoperative Procedures Operation Date: 03/09/19 07:45 Actual Procedures Side Surgeon p L2-3, L3-4 TLIF, L3-4, L4-5 Hemilami Carmita Mathias MD Medications adjusted today with goal of better pain control. Discontinue IV Dilaudid and Oxycodone and start oral Dilaudid. Vistaril increased to 50mg and restarted Gabapentin 300mg TID and Wellbutrin 75mg BID that she was on prior to surgery. Patient should attempt to mobilize today with PT. May require discharge to SNF if continuing to have difficulty mobilizing. Quality VTE Deep Vein Thrombosis/Pulmonary Embolism Present on Admission: No
--- NOTE | 2019-03-10 11:30 | PT.IPTN ---
Current Diagnoses Radiculopathy, lumbar region (03/05/19) Surgery Performed Operation Date: 03/09/19 07:45 Actual Procedures p L2-3, L3-4 TLIF, L3-4, L4-5 Hemilami - Carmita Mathias MD Physical Therapy Treatment Note M2 PT-IP Current Condition Start: 03/06/19 15:42 Freq: NEEDED Status: Active Protocol: Document 03/10/19 09:20 AB (Rec: 03/10/19 12:57 AB [id number]) Physical Therapy Current Condition Current Condition Evaluation Date 03/10/19 Treatment Diagnosis s/p L2-4 fusion/lami; L5S1 L microdiscectomy/hemilami; difficulty in walking Onset Date 03/05/19 Precautions Lumbar Precautions Log Roll No Twisting Limit Bending Lifting Restriction of 10 lbs Gait Belt above Incisional Area M3 PT-IP Subjective Start: 03/06/19 15:42 Freq: NEEDED Status: Active Protocol: Document 03/10/19 11:30 AB (Rec: 03/10/19 14:42 AB [id number]) Subjective Physical Therapy Visit Type Type Treatment Note Visit Start Time 11:30 Visit Stop Time 11:45 Total Visit Minutes 15 Number of CUSTOMER GREETER Visits 0 Physical Therapy Visit Comments Patient Comments pt requesting to go back to bed; stated that her legs are now numb M4 PT-IP Mobility and Gait Start: 03/06/19 15:42 Freq: NEEDED Status: Active Protocol: Document 03/10/19 11:30 AB (Rec: 03/10/19 14:42 AB [id number]) PT-Bed Mobility Assessment Sit to Supine Sit to Supine Moderate Assistance 2 Person Assistance Bedrails PT-Transfer Assessment Sit to and From Stand Sit to and from Stand Moderate Assistance 2 Person Assistance Use of Upper Extremities Equipment Transfer Assistive Device Gait Belt Front Wheeled Walker Orthotic/Prosthetic Devices or Brace: No Transfers Transfer Destination Bed Transfer Technique Stand Step Pivot Transfer Ability Level of Assist Moderate Assistance 1 Person Assistance Comments Mobility Comments pt required 2 attempts to complete sit to stand requiring mod A x 2 and cues. pt completed stand pivot transfer mod A and max cues for technique and safety. M5 PT-IP Objective Assessments Start: 03/06/19 15:42 Freq: NEEDED Status: Active Protocol: Document 03/10/19 09:20 AB (Rec: 03/10/19 12:57 AB [id number]) Orientation Orientation/Cognition Level of Alertness Alert Orientation Name Age Place Situation Language Function Ability No Deficits Noted Safety Awareness Decreased Safety Awareness Gross Range of Motion Lower Extremity ROM Assessment Within Functional Limits Strength Lower Extremity Strength Assessment Bilaterally Impaired Comments Strength Comments LLE: 3-/5 RLE: 3+/5 Coordination Assessment Gross Coordination Gross Coordination WNL Sensation Assessment Sensation Light Touch Intact Proprioception (Position) Intact Comments Sensation Comments intact light touch and proprioception when tested but c/o numbness on LE Muscle Tone Muscle Tone WNL Yes M6 PT-IP Treatment Start: 03/06/19 15:42 Freq: NEEDED Status: Active Protocol: Document 03/10/19 11:30 AB (Rec: 03/10/19 14:42 AB [id number]) Physical Therapy Treatment Education Education Provided Precautions Safety M7 PT-IP Assessment and Plan Start: 03/06/19 15:42 Freq: NEEDED Status: Active Protocol: Document 03/10/19 11:30 AB (Rec: 03/10/19 14:42 AB [id number]) PT Summary Assessment and Plan Potential Rehabilitation Potential Fair Summary Impairments Pain ROM Strength Balance Coordination Sensation Tone Cognition Bed Mobility Transfers Gait Activity Tolerance Progress Towards Goals Slow Progress due to Pain Slow Progress due to Activity Tolerance Assessment Summary pt requiring 2 person assist with mobility and unable to tolerate much activity. pt will require SNF rehab to improve strength and function. Goals Bed Mobility Goal Contact Guard Assistance Transfer Goal Contact Guard Assistance Front Wheeled Walker Gait Goal Contact Guard Assistance Front Wheel Walker Gait Distance 100 Days to Meet Goals 5 Frequency of Treatment Frequency Of Treatment Twice a Day Treatment Plan Physical Therapy Treatment Plan Bed Mobility Training Transfer Training Gait Training Therapeutic Exercise Balance Retraining Post Op Education Discharge Planning Hot or Cold Pack Neuromuscular Re-ed Coordination Retraining Manual Therapy Recommendations To Nursing Amount of Assist Needed 2 Person Assist Discharge Recommendations PT Discharge Recommendations SNF Rehab Equipment Needed for Home Before [facility]WW if pt is going home Discharge
[2019-03-10] MEDS: hydrOXYzine pamoate 25 MG CAPSULE 50 MG PO ×3 (11:36→21:27)
[2019-03-10] MEDS: GABAPENTIN 300 MG CAPSULE PO ×3 (11:37→21:28)
[2019-03-10] MEDS: HYDROMORPHONE 2 MG TABLET 4 MG PO ×4 (11:37→21:28)
[2019-03-10] MEDS: buPROPion 75 MG TABLET PO ×2 (11:37→21:28)
[2019-03-10 13:00] VITALS: BP 162/93; PULSE 94; RESP 18; TEMP 36.7; O2SAT 96
--- NOTE | 2019-03-10 13:23 | OT.IPRE ---
Current Diagnoses Radiculopathy, lumbar region (03/05/19) Surgery Performed Operation Date: 03/09/19 07:45 Actual Procedures p L2-3, L3-4 TLIF, L3-4, L4-5 Tom Mathias MD Past Medical History (Last Updated 03/06/19 @ 01:10 by TAYLOR Sigala) Situational depression (Acute) Abnormal vaginal Pap smear (Chronic) Morbid obesity (Chronic) Back pain (Chronic) Surgical History (Last Updated 03/06/19 @ 01:10 by TAYLOR Sigala) History of cervical spinal surgery (Chronic) Status post laminectomy Occupational Therapy Inpatient Evaluation/Re-Eval M1 PT/OT-IP Prior Functional Status Start: 03/06/19 15:42 Freq: NEEDED Status: Active Protocol: Document 03/10/19 09:50 [facility] (Rec: 03/10/19 13:23 [facility] [id number]) Medical Review Prior Functional Status Medical History Reviewed Yes Diet/Fluid Consistency Regular Communication able to make needs known Mobility and Gait pt stated that she is independent with all mobilities and ambulation without AD Activities of Daily Living and IADL's Pt independent with all self care, IADLS prior to onset of severe back pain. 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 Social History Household Members friend(s) Living Arrangements House Number of Floors (Floors) One Floor Number of Stairs To Enter/Railing? pt plans to stay at her friend 's house: info is regarding her friend's house Home Environment Standard Height Toilet Walk in Shower Home Equipment Four Wheel Walker Straight Cane Hand Held Shower Additional Social History Comment full flight of stairs to access kitchen on upper level; roommate she lives w/cannot give her much help; pt may try to stay with friend in more accessible mother in law suite at d/c M2 OT-IP Current Condition Start: 03/07/19 14:41 Freq: Status: Active Protocol: Document 03/10/19 09:50 [facility] (Rec: 03/10/19 13:23 [facility] [id number]) Occupational Therapy Current Condition Current Condition Evaluation Date 03/10/19 Treatment Diagnosis SPinal Stenosis Diagnosis Onset Date 03/05/19 Post Operative Precautions Lumbar Precautions Log Roll No Twisting Limit Bending Lifting Restriction of 10 lbs Gait Belt above Incisional Area Weight Bearing Status Weight Bearing Status Weight Bear as Tolerated M3 OT- IP Subjective and Pain Start: 03/07/19 14:41 Freq: Status: Active Protocol: Document 03/10/19 09:50 [facility] (Rec: 03/10/19 13:23 [facility] [id number]) OT- Subjective Occupational Therapy Visit Type Type Re-Evaluation Visit Start Time 09:50 Visit Stop Time 10:20 Total Visit Minutes 30 Occupational Therapy Visit Comments Patient Comments Pt needing lots of encouragement and increased time to help motivate herself. OT Pain Assessment Pain When Pain Assessed During Mobility Pain Present Pain Present Pain Reported M4 OT- IP ADL's Start: 03/07/19 14:41 Freq: Status: Active Protocol: Document 03/10/19 09:50 [facility] (Rec: 03/10/19 13:23 [facility] [id number]) OT ADL-Grooming Comments OT Grooming Comments Pt able to do grooming needs while sitting in the recliner after set-up. OT ADL-Dressing General Eval Lower Body Dressing Ability Moderate Assistance Total Assistance Areas Needing Assistance Socks M5 OT- IP IADL's Start: 03/07/19 14:41 Freq: Status: Active Protocol: Document 03/10/19 09:50 [facility] (Rec: 03/10/19 13:23 [facility] [id number]) OT-Instrumental Activities of Daily Living Deficits IADL Deficits Identified Deficits Home Safety Awareness Awareness of Need for Assistance at Home Good Awareness Ability to Problem Solve Emergency Able to Problem Solve Situations Medication Management Medication Management No Deficits Identified Money Management Money Management No Deficits Identified M6 OT- IP Functional Cognition Start: 03/07/19 14:41 Freq: Status: Active Protocol: Document 03/10/19 09:50 [facility] (Rec: 03/10/19 13:23 [facility] [id number]) Cognitive Factors Limiting Selfcare Function Cognitive Ability Level of Alertness Alert Patient Orientation Name Age Birthday Month Date Year Day of Week Place Situation Attention Span Ability Capable of Focused Attention Ability to Follow Commands Able to Follow One Step Commands Safety Awareness Decreased Recall of Precautions Decreased Ability to Apply Precautions Cognitive Comments Cognitive Assessment Comments Pt needing vc for safety awareness, back precautions, and FWW safety. OT- Vision and Hearing OT- Hearing Assessment OT- Hearing Assessment Hearing Impaired OT- Vision Assessment Vision Assessment Comments Pt denies any recent vision changes. M7 OT- IP Mobility and Balance Start: 03/07/19 14:41 Freq: Status: Active Protocol: Document 03/10/19 09:50 [facility] (Rec: 03/10/19 13:23 [facility] [id number]) OT- Bed Mobility Assessment Rolling Type of Rolling Roll to Right Level of Assistance Maximum Assistance 1 Person Assistance Supine to Sit Supine to Sit Assist Maximum Assistance 2 Person Assistance Bedrails OT-Transfer Assessment Sit to and From Stand Sit to and from Stand Maximum Assistance 1 Person Assistance 2 Person Assistance Transfers Transfer Ability Maximum Assistance 1 Person Assistance 2 Person Assistance Technique Transfer Destination Chair Transfer Technique Stand Step Pivot Devices Transfer Assistive Devices Front Wheeled Walker Comments Mobility Comments Pt needing lots of encouragement and extensive assist for mobility needs at this time. Assist for balance, move FWW, and help ease down and lift up from the recliner/ bed. OT- Balance Assessment Sitting Balance and Reactions Static Sitting Balance Ability Fair Standing Balance and Reactions Static Standing Balance Ability Fair M8 OT- IP Objective Assessments Start: 03/07/19 14:41 Freq: Status: Active Protocol: Document 03/10/19 09:50 [facility] (Rec: 03/10/19 13:23 [facility] [email or web address]) OT Gross Range of Motion Upper Extremity Range of Motion Assessment Within Functional Limits OT Strength Upper Extremity Strength Assessment Within Functional Limits OT Sensation Assessment Comments Summary Comments Pt has paraesthesias in B hands since C spine fusion 2011. M9 OT- IP Assessment and Plan Start: 03/07/19 14:41 Freq: Status: Active Protocol: Document 03/10/19 09:50 [facility] (Rec: 03/10/19 13:23 [facility] [id number]) OT Summary Assessment and Plan Potential Rehabilitation Potential Good Analytic Complexity at Evaluation Low Summary OT Impairments Pain Balance Functional Mobility Grooming Dressing Toileting Bathing Toilet Transfers Shower Transfers Progress Towards Goals Slow Progress due to Pain Slow Progress due to Activity Tolerance Assessment Summary Pt low complexity and main uyen are bed mobility and now needing extensive assist for ADl's and functional mobility needs. Pt will benefit from skilled rehab prior to going home. Goals Self-Feeding Goal Independent Grooming Goal Standby Assistance Dressing Goal Minimal Assistance Toileting Goal Minimal Assistance Bathing Goal Moderate Assistance Toilet Transfer Goal Minimal Assistance Shower Transfer Goal Minimal Assistance Patient/Caregiver Education Goal Demonstrate Post-Op Precautions Demonstrate Energy Conservation and Pacing Caregiver Independent Assisting Patient Days to Meet Goals 10 Frequency of Treatment Frequency Of Treatment Once a Day Treatment Plan OT Treatment Plan ADL Training Functional Mobility Patient/Family Education Discharge Planning Other Treatment Recommendations and Next Stand at sink from recliner, Treatment Focus practice LB AED. Discharge Recommendations OT Discharge Recommendations SNF Rehab Home Equipment Needs raised toilet seat, shower chair
--- NOTE | 2019-03-10 14:33 | CM.DPC ---
Addendum entered by Jovanna Oviedo LPN 03/10/19 15:13: Met now with pt to update her. Her friend PARKER Romero is at bedside: tel # [phone]. She confirms that she expects pt to go to her home at d/c. She has had 2 spinal surgeries and is familiar with what pt is going through. She states the area that pt plans to d/c to is all set up for her post surgery needs. She says she has just finished reminding pt that each day after spinal surgery is better and she is very supportive of pt's goal for home. Pt understands the need for the back up snf plan (which is far from firm: primary barrier being the insurance.). P: pt's goal to [facility] home as per above... Addendum entered by Jovanna Oviedo LPN 03/10/19 15:03: Spoke with Jeniffer/ANGELICA. She will look into the insurance issue. She says they do not have a contract with the [facility] medicaid insurance but she will do some research to see what might be doable and if a single case certificaition is something that can be managed. Do not expect to hear anything more from the facility re this until sometime on Wednesday. Original Note: DCP: continued: Case discussed today in Team Rounds. EMR re reviewed. Care Team noted that pt had extensive spinal surgery yesterday: Surgeon:Dr. Mathias and PT/OT would be seeing her today. Met then with pt and her mother Mounika Post: Clayton Gonzalez. Introduced self and role. Pt was aware that the Hospitalist Dr. Fried had said that she would likely need a mcc to recover but she and her mother wondered why this might be. I have a place to go and people to help me. Pt clarifies her insurance as an [employer]. An update now by Admission Counselor Gladis in [facility] confirms [facility] HO and Medicaid. 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 She lives in [place] in a part of a home owned by her landlord. She says they are not friend and he is only her landlord. She is hopeful that she will be able to d/c to home of a very close family friend [place] as the set up is better for recovery. She does not at this time identify anyone who would be part of her caregiver training team. See that OT and Pt have seen her for first time today and are recommending snf but expect this might change as her POC unfolds. Pt was already compromised by affects from a spinal surgery in 2011...DCP team will be following closely Have spoken with Diandra/liaison for the [facility] centers in [facility]. She states that [facility] does now have the [facility] contract. A carve out for financial consideration of the therapy needs would need to be negotiated. OF NOTE: hospitalist team did admit pt with orthopedic team consulting. RN Coordinator Adelaida Saavedra does confirm in Team Rounds that the orthopedic team have agreed to take over as the primary/Attending physicians and hospitalists have signed off the case for now. P: pt hopeful for a home environment plan but SNF may well be needed. Have sent in a referral to [facility] via fax and vm (in addition to the recommendation from Diandra to talk with Jeniffer). Will update pt and DCP team will follow.
[2019-03-10] MEDS: ACETAMINOPHEN 325 MG TABLET 650 MG PO (14:55)
[2019-03-10] MEDS: ONDANSETRON 4 MG/2 ML INJ IV (15:46)
[2019-03-10 16:09] VITALS: BP 157/90; PULSE 95; RESP 14; TEMP 37.4; O2SAT 100
[2019-03-10 19:34] VITALS: BP 103/58; PULSE 70; RESP 18; TEMP 36.8; O2SAT 93
[2019-03-10] MEDS: SENNOSIDES 8.6 MG TABLET 17.2 MG PO (21:28)
[2019-03-11 00:50] VITALS: BP 141/84; PULSE 91; RESP 16; TEMP 36.4; O2SAT 97
[2019-03-11] MEDS: HYDROMORPHONE 2 MG TABLET 4 MG PO ×7 (01:18→22:59)
[2019-03-11 05:15] VITALS: BP 143/85; PULSE 82; RESP 16; TEMP 36.3; O2SAT 98
[2019-03-11] MEDS: hydrOXYzine pamoate 25 MG CAPSULE 50 MG PO ×4 (06:03→23:00)
--- NOTE | 2019-03-11 06:17 | PC.NURSE ---
Pt. requested to keep the lord inplaced @ this time. States can we take it out after I get up with PT later this morning?. Reported to Co-ordinator that pt. declined to DC the lord cath. Will report to day RN. Pt. pain level this morning 4-5/10< C/O a little spasms to her back, only wants to take 25 mg. of PO Vistaril. Slept most of the shift. Will cont. POC & monitor.
[2019-03-11] MEDS: SODIUM CHLORIDE 0.9% FLUSH 10 ML IV ×2 (09:02→20:14)
[2019-03-11] MEDS: GABAPENTIN 300 MG CAPSULE PO ×3 (09:02→20:13)
[2019-03-11] MEDS: buPROPion 75 MG TABLET PO ×2 (09:02→20:13)
[2019-03-11] MEDS: DOCUSATE 100 MG CAPSULE PO ×2 (09:02→20:13)
--- NOTE | 2019-03-11 09:24 | PM.PNPO.1 ---
Subjective Date Patient Seen: 03/11/19 Time Patient Seen: 09:24 Interval history: Ms. Villaseñor is a 43 yo F with hx of chronic back pain, history of lumbar multi-level laminectomies surgery, presented to the emergency room for the 3rd time in the last month for severe back pain, progressive weakness and inability to stand and walk due to leg pain and weakness. She was admitted under hospitalist service and orthopedics consulted. She is POD 2 s/p L2-4 TLIF, and L5-S1 microdiscectomy with Dr. Mathias. She had significant pain control issues following surgery but is doing much better today. She is looking forward to working with PT today. She has been slow to mobilize. Exam Vital Signs (past 8 hours): - 03/11/19 05:15 Temperature 97.3 F L Pulse Rate 82 Respiratory Rate 16 Blood Pressure 143/85 H Pulse Oximetry 98 Fraction of Inspired Oxygen 24 Oxygen Delivery Method Room Air Oxygen Flow Rate 0 Narrative Exam Narrative: Patient lying in bed in no acute distress. She is alert and oriented x3. Dressing on back is CDI. Calves are soft, compressible, nontender bilaterally. pulses symmetrical. She does complain of bilateral anterior thigh numbness. Objective Labs Result Diagrams: 03/10/19 05:54 03/09/19 05:52 Assessment & Plan Post-op (1) Acute left lumbar radiculopathy: Postoperative Procedures Operation Date: 03/09/19 07:45 Actual Procedures Side Surgeon p L2-3, L3-4 TLIF, L3-4, L4-5 Hemilami Carmita Mathias MD Patient will mobilize with physical therapy today. No excessive bending lifting or twisting. Patient has been slow to mobilize. She has had pain control issues seems to be doing well on her current pain regimen. Patient will likely need alf facility versus home health services. Quality VTE Deep Vein Thrombosis/Pulmonary Embolism Present on Admission: No
[2019-03-11 09:36] VITALS: BP 153/90; PULSE 89; RESP 19; TEMP 36.8; O2SAT 96
--- NOTE | 2019-03-11 11:30 | PT.IPTN ---
Current Diagnoses Radiculopathy, lumbar region (03/05/19) Surgery Performed Operation Date: 03/09/19 07:45 Actual Procedures p L2-3, L3-4 TLIF, L3-4, L4-5 Hemilami - Carmtia Mathias MD Physical Therapy Treatment Note M2 PT-IP Current Condition Start: 03/06/19 15:42 Freq: NEEDED Status: Active Protocol: Document 03/10/19 09:20 AB (Rec: 03/10/19 12:57 AB [id number]) Physical Therapy Current Condition Current Condition Evaluation Date 03/10/19 Treatment Diagnosis s/p L2-4 fusion/lami; L5S1 L microdiscectomy/hemilami; difficulty in walking Onset Date 03/05/19 Precautions Lumbar Precautions Log Roll No Twisting Limit Bending Lifting Restriction of 10 lbs Gait Belt above Incisional Area M3 PT-IP Subjective Start: 03/06/19 15:42 Freq: NEEDED Status: Active Protocol: Document 03/11/19 11:30 AB (Rec: 03/11/19 12:15 AB [id number]) Subjective Physical Therapy Visit Type Type Treatment Note Visit Start Time 11:30 Visit Stop Time 11:48 Total Visit Minutes 18 Number of REIMBURSEMENT LIAISON Visits 0 Physical Therapy Visit Comments Patient Comments pt agreeable to do PT Therapy Pain Assessment Pain When Pain Assessed At Rest Pain Present Pain Present Pain Reported Location Left Leg Intensity 5 Scale Used Numeric (1 - 10) Pain Management Techniques Apply Cold Re-positioning Timing of Activity with Medications M4 PT-IP Mobility and Gait Start: 03/06/19 15:42 Freq: NEEDED Status: Active Protocol: Document 03/11/19 11:30 AB (Rec: 03/11/19 12:15 AB [id number]) PT-Bed Mobility Assessment Rolling Type of Rolling Log Rolling Level of Assist Minimal Assistance 1 Person Assistance Supine to Sit Supine to Sit Maximum Assistance 1 Person Assistance Bedrails PT-Transfer Assessment Sit to and From Stand Sit to and from Stand Minimal Assistance Equipment Transfer Assistive Device Gait Belt Front Wheeled Walker Orthotic/Prosthetic Devices or Brace: No Transfers Transfer Destination Chair Transfer Technique pt ambulated using FWW Transfer Ability Level of Assist Minimal Assistance 1 Person Assistance Use of Upper Extremities Gait Assessment Gait Gait Assistance Required: Minimum Assistance Distance (Feet) 10 Able to Maintain Weight Bearing Status Yes During Gait Assistive Devices Assistive Device Gait Belt Front Wheeled Walker Orthotic/Prosthetic Devices or Brace: No Gait Deviations General Gait Pattern Antalgic Decreased Stride Length Decreased Feet Clearance Factors Limiting Gait Function Factors Limiting Gait Function Decreased Activity Tolerance Decreased Strength Limited Range of Motion Pain Poor Balance Poor Safety Awareness M5 PT-IP Objective Assessments Start: 03/06/19 15:42 Freq: NEEDED Status: Active Protocol: Document 03/10/19 09:20 AB (Rec: 03/10/19 12:57 AB [id number]) Orientation Orientation/Cognition Level of Alertness Alert Orientation Name Age Place Situation Language Function Ability No Deficits Noted Safety Awareness Decreased Safety Awareness Gross Range of Motion Lower Extremity ROM Assessment Within Functional Limits Strength Lower Extremity Strength Assessment Bilaterally Impaired Comments Strength Comments LLE: 3-/5 RLE: 3+/5 Coordination Assessment Gross Coordination Gross Coordination WNL Sensation Assessment Sensation Light Touch Intact Proprioception (Position) Intact Comments Sensation Comments intact light touch and proprioception when tested but c/o numbness on LE Muscle Tone Muscle Tone WNL Yes M6 PT-IP Treatment Start: 03/06/19 15:42 Freq: NEEDED Status: Active Protocol: Document 03/11/19 11:30 AB (Rec: 03/11/19 12:15 AB [id number]) Physical Therapy Treatment Education Education Provided Precautions Safety M7 PT-IP Assessment and Plan Start: 03/06/19 15:42 Freq: NEEDED Status: Active Protocol: Document 03/11/19 11:30 AB (Rec: 03/11/19 12:15 AB [id number]) PT Summary Assessment and Plan Potential Rehabilitation Potential Good Summary Impairments Pain ROM Strength Balance Coordination Sensation Tone Cognition Bed Mobility Transfers Gait Activity Tolerance Progress Towards Goals Slow Progress due to Pain Assessment Summary pt requires max A with bed mobility and min A with transfers and ambulation. pt unable to tolerate much activity this morning. pt will need SNF rehab to improve strength and function. Goals Bed Mobility Goal Contact Guard Assistance Transfer Goal Contact Guard Assistance Front Wheeled Walker Gait Goal Contact Guard Assistance Front Wheel Walker Gait Distance 100 Days to Meet Goals 5 Frequency of Treatment Frequency Of Treatment Twice a Day Treatment Plan Physical Therapy Treatment Plan Bed Mobility Training Transfer Training Gait Training Therapeutic Exercise Balance Retraining Post Op Education Discharge Planning Hot or Cold Pack Neuromuscular Re-ed Coordination Retraining Manual Therapy Recommendations To Nursing Amount of Assist Needed 2 Person Assist Discharge Recommendations PT Discharge Recommendations SNF Rehab
[2019-03-11] MEDS: MAGNESIUM HYDROXIDE 30 ML UDC PO (12:49)
--- NOTE | 2019-03-11 12:59 | PT.IPTN ---
Current Diagnoses Radiculopathy, lumbar region (03/05/19) Surgery Performed Operation Date: 03/09/19 07:45 Actual Procedures p L2-3, L3-4 TLIF, L3-4, L4-5 Hemilami - Carmita Mathias MD Physical Therapy Treatment Note M2 PT-IP Current Condition Start: 03/06/19 15:42 Freq: NEEDED Status: Active Protocol: Document 03/10/19 09:20 AB (Rec: 03/10/19 12:57 AB [id number]) Physical Therapy Current Condition Current Condition Evaluation Date 03/10/19 Treatment Diagnosis s/p L2-4 fusion/lami; L5S1 L microdiscectomy/hemilami; difficulty in walking Onset Date 03/05/19 Precautions Lumbar Precautions Log Roll No Twisting Limit Bending Lifting Restriction of 10 lbs Gait Belt above Incisional Area M3 PT-IP Subjective Start: 03/06/19 15:42 Freq: NEEDED Status: Active Protocol: Document 03/11/19 12:59 AB (Rec: 03/11/19 14:24 AB [id number]) Subjective Physical Therapy Visit Type Type Treatment Note Visit Start Time 12:59 Visit Stop Time 13:14 Total Visit Minutes 15 Number of FEATHER TRIMMER Visits 0 Physical Therapy Visit Comments Patient Comments pt requested to go back to bed Therapy Pain Assessment Pain When Pain Assessed At Rest Pain Present Pain Present Pain Reported Location Left Leg Intensity 7 Scale Used Numeric (1 - 10) Pain Management Techniques Re-positioning Timing of Activity with Medications M4 PT-IP Mobility and Gait Start: 03/06/19 15:42 Freq: NEEDED Status: Active Protocol: Document 03/11/19 12:59 AB (Rec: 03/11/19 14:24 AB [id number]) PT-Bed Mobility Assessment Sit to Supine Sit to Supine Minimal Assistance 2 Person Assistance Bedrails Scooting Scooting to Edge of Bed Maximum Assistance PT-Transfer Assessment Sit to and From Stand Sit to and from Stand Moderate Assistance Maximum Assistance 1 Person Assistance Use of Upper Extremities Equipment Transfer Assistive Device Gait Belt Front Wheeled Walker Orthotic/Prosthetic Devices or Brace: No Transfers Transfer Destination Bed Transfer Technique pt ambulated using FWW Transfer Ability Level of Assist Minimal Assistance 1 Person Assistance Use of Upper Extremities Gait Assessment Gait Gait Assistance Required: Minimum Assistance Distance (Feet) 30 Able to Maintain Weight Bearing Status Yes During Gait Assistive Devices Assistive Device Gait Belt Front Wheeled Walker Orthotic/Prosthetic Devices or Brace: No Gait Deviations General Gait Pattern Antalgic Decreased Stride Length Decreased Feet Clearance Factors Limiting Gait Function Factors Limiting Gait Function Decreased Activity Tolerance Decreased Strength Limited Range of Motion Pain Poor Balance M5 PT-IP Objective Assessments Start: 03/06/19 15:42 Freq: NEEDED Status: Active Protocol: Document 03/10/19 09:20 AB (Rec: 03/10/19 12:57 AB [id number]) Orientation Orientation/Cognition Level of Alertness Alert Orientation Name Age Place Situation Language Function Ability No Deficits Noted Safety Awareness Decreased Safety Awareness Gross Range of Motion Lower Extremity ROM Assessment Within Functional Limits Strength Lower Extremity Strength Assessment Bilaterally Impaired Comments Strength Comments LLE: 3-/5 RLE: 3+/5 Coordination Assessment Gross Coordination Gross Coordination WNL Sensation Assessment Sensation Light Touch Intact Proprioception (Position) Intact Comments Sensation Comments intact light touch and proprioception when tested but c/o numbness on LE Muscle Tone Muscle Tone WNL Yes M6 PT-IP Treatment Start: 03/06/19 15:42 Freq: NEEDED Status: Active Protocol: Document 03/11/19 12:59 AB (Rec: 03/11/19 14:24 AB [id number]) Physical Therapy Treatment Education Education Provided Precautions Safety M7 PT-IP Assessment and Plan Start: 03/06/19 15:42 Freq: NEEDED Status: Active Protocol: Document 03/11/19 12:59 AB (Rec: 03/11/19 14:24 AB [id number]) PT Summary Assessment and Plan Potential Rehabilitation Potential Good Summary Impairments Pain ROM Strength Balance Coordination Sensation Tone Cognition Bed Mobility Transfers Gait Activity Tolerance Progress Towards Goals Slow Progress due to Pain Assessment Summary pt progressing slowly with mobility with pain as the limiting factor. pt continues to require min A for ambulation. pt will need SNF rehab to improve strength and mobility. Goals Bed Mobility Goal Contact Guard Assistance Transfer Goal Contact Guard Assistance Front Wheeled Walker Gait Goal Contact Guard Assistance Front Wheel Walker Gait Distance 100 Days to Meet Goals 5 Frequency of Treatment Frequency Of Treatment Twice a Day Treatment Plan Physical Therapy Treatment Plan Bed Mobility Training Transfer Training Gait Training Therapeutic Exercise Balance Retraining Post Op Education Discharge Planning Hot or Cold Pack Neuromuscular Re-ed Coordination Retraining Manual Therapy Recommendations To Nursing Amount of Assist Needed 2 Person Assist Discharge Recommendations PT Discharge Recommendations SNF Rehab
[2019-03-11 13:05] VITALS: BP 133/90; PULSE 82; RESP 19; TEMP 36.9; O2SAT 98
--- NOTE | 2019-03-11 14:36 | PC.NURSE ---
Dressing remains intact, 2 spots of dry shadow drainage noted. Patient refused to have lord dc'd until after seen by P.T. and back in bed. Lord removed and patient assisted with pericare, patient had very moist periarea and thighs with some reddness to inner thigh from moisture. Patient tearful at times, states she gets overwhelmed with things. Pain appears better managed today with ordered prn dilaudid, down to a 5-6/10 and able to get up to chair with PT. Patient given MOM to help stimulate BM, patient declined additional measures at this time, passing gas today. Call light within reach, able to make needs known.
[2019-03-11 15:20] VITALS: BP 128/73; PULSE 89; RESP 15; TEMP 36.6; O2SAT 96
--- NOTE | 2019-03-11 16:16 | CM.DPC ---
Addendum entered by Helene Juárez R.N. 03/12/19 13:57: Left a message with admissions at [place], regarding insurance. They have not called back. Spoke to April at [facility]. She stated that they could review, but will not have any availabilities until approximately Wed. She is unsure if they can accept her insurance, but will review. She also mentioned that they could have a possible discharge tomorrow which could give them availability, but not sure at this time. Original Note: DCP Cont: Received a phone call message from Jeniffer in admissions at [facility]. She stated that they are not able to accept their insurance. Spoke to patient this afternoon. She was teary. She was not up to discuss long-term at this time. Let her know that [facility] in [facility] could not accept, but would try other options. Left a message with Soph[facility] Conrad, and faxed face sheet and clinicals. Left a message with [facility] in [facility], and also faxed face sheet and clinicals. Called and spoke to April at [facility]. She will review, faxed her face sheet, but is unlikely that they will accept her insurance. P: DCP to continue to follow. Will continue to attempt locating long-term facilities that will take her insurance. Other option is home with assist of friend, but patient is a max assist at this point. Helene Juárez, RN/Assistant Fitness Manager
--- NOTE | 2019-03-11 16:31 | OT.IP.TRT ---
Current Diagnoses Radiculopathy, lumbar region (03/05/19) Surgery Performed Operation Date: 03/09/19 07:45 Actual Procedures p L2-3, L3-4 TLIF, L3-4, L4-5 Tom Mathias MD Occupational Therapy Treatment Note M2 OT-IP Current Condition Start: 03/07/19 14:41 Freq: Status: Active Protocol: Document 03/10/19 09:50 [facility] (Rec: 03/10/19 13:23 [facility] [email or web address]) Occupational Therapy Current Condition Current Condition Evaluation Date 03/10/19 Treatment Diagnosis SPinal Stenosis Diagnosis Onset Date 03/05/19 Post Operative Precautions Lumbar Precautions Log Roll No Twisting Limit Bending Lifting Restriction of 10 lbs Gait Belt above Incisional Area Weight Bearing Status Weight Bearing Status Weight Bear as Tolerated M3 OT- IP Subjective and Pain Start: 03/07/19 14:41 Freq: Status: Active Protocol: Document 03/11/19 11:35 [facility] (Rec: 03/11/19 16:31 [facility] [email or web address]) OT- Subjective Occupational Therapy Visit Type Type Treatment Note Visit Start Time 11:30 Visit Stop Time 11:50 Total Visit Minutes 35 Notes Also seen with PT in PM from [id number], as needing extensive assist for bed mobility needs. Occupational Therapy Visit Comments Patient Comments Pt needing lots of encouragement. OT Pain Assessment Pain When Pain Assessed At Rest Pain Present Pain Present Denied Pain M4 OT- IP ADL's Start: 03/07/19 14:41 Freq: Status: Active Protocol: Document 03/11/19 11:35 [facility] (Rec: 03/11/19 16:31 [facility] [email or web address]) OT ADL-Dressing General Eval Lower Body Dressing Ability Maximum Assistance Areas Needing Assistance Socks M5 OT- IP IADL's Start: 03/07/19 14:41 Freq: Status: Active Protocol: Document 03/10/19 09:50 [facility] (Rec: 03/10/19 13:23 [facility] [email or web address]) OT-Instrumental Activities of Daily Living Deficits IADL Deficits Identified Deficits Home Safety Awareness Awareness of Need for Assistance at Home Good Awareness Ability to Problem Solve Emergency Able to Problem Solve Situations Medication Management Medication Management No Deficits Identified Money Management Money Management No Deficits Identified M6 OT- IP Functional Cognition Start: 03/07/19 14:41 Freq: Status: Active Protocol: Document 03/11/19 11:35 [facility] (Rec: 03/11/19 16:31 [facility] [email or web address]) Cognitive Factors Limiting Selfcare Function Cognitive Ability Level of Alertness Alert Patient Orientation Name Age Birthday Month Date Year Day of Week Place Situation Attention Span Ability Capable of Focused Attention Ability to Follow Commands Able to Follow One Step Commands Safety Awareness Decreased Recall of Precautions Decreased Ability to Apply Precautions Cognitive Comments Cognitive Assessment Comments Pt doing better with safety awareness today but still needing lots of encouragement and increased time to think things through. M7 OT- IP Mobility and Balance Start: 03/07/19 14:41 Freq: Status: Active Protocol: Document 03/11/19 11:35 [facility] (Rec: 03/11/19 16:31 [facility] [email or web address]) OT- Bed Mobility Assessment Rolling Type of Rolling Roll to Left Level of Assistance Moderate Assistance Maximum Assistance 1 Person Assistance Supine to Sit Supine to Sit Assist Maximum Assistance 2 Person Assistance Sit to Supine Sit to Supine Assist Moderate Assistance Maximum Assistance 2 Person Assistance OT-Transfer Assessment Sit to and From Stand Sit to and from Stand Minimal Assistance 2 Person Assistance Transfers Transfer Ability Minimal Assistance 1 Person Assistance 2 Person Assistance Technique Transfer Destination Bed Chair Devices Transfer Assistive Devices Gait Belt Front Wheeled Walker OT- Balance Assessment Sitting Balance and Reactions Static Sitting Balance Ability Good Standing Balance and Reactions Static Standing Balance Ability Fair M8 OT- IP Objective Assessments Start: 03/07/19 14:41 Freq: Status: Active Protocol: Document 03/10/19 09:50 [facility] (Rec: 03/10/19 13:23 [facility] [email or web address]) OT Gross Range of Motion Upper Extremity Range of Motion Assessment Within Functional Limits OT Strength Upper Extremity Strength Assessment Within Functional Limits OT Sensation Assessment Comments Summary Comments Pt has paraesthesias in B hands since C spine fusion 2011. M9 OT- IP Assessment and Plan Start: 03/07/19 14:41 Freq: Status: Active Protocol: Document 03/11/19 11:35 [facility] (Rec: 03/11/19 16:31 [facility] [email or web address]) OT Summary Assessment and Plan Potential Rehabilitation Potential Good Analytic Complexity at Evaluation Low Summary OT Impairments Pain Balance Functional Mobility Grooming Dressing Toileting Bathing Toilet Transfers Shower Transfers Progress Towards Goals Slow Progress due to Pain Slow Progress due to Activity Tolerance Assessment Summary Pt improving however states wanting to go to friend's home , but still needing extensive assist for bed mobility and ADl needs and would benefit from going to skilled rehab prior to going home. Goals Self-Feeding Goal Independent Grooming Goal Standby Assistance Dressing Goal Minimal Assistance Toileting Goal Minimal Assistance Bathing Goal Moderate Assistance Toilet Transfer Goal Minimal Assistance Shower Transfer Goal Minimal Assistance Patient/Caregiver Education Goal Demonstrate Post-Op Precautions Demonstrate Energy Conservation and Pacing Caregiver Independent Assisting Patient Days to Meet Goals 10 Frequency of Treatment Frequency Of Treatment Once a Day Treatment Plan OT Treatment Plan ADL Training Functional Mobility Patient/Family Education Discharge Planning Other Treatment Recommendations and Next Stand at sink from recliner, Treatment Focus practice LB AED. Discharge Recommendations OT Discharge Recommendations SNF Rehab Home Equipment Needs raised toilet seat, shower chair
[2019-03-11 19:18] VITALS: BP 148/91; PULSE 88; RESP 16; TEMP 36.5; O2SAT 97
[2019-03-11] MEDS: SENNOSIDES 8.6 MG TABLET 17.2 MG PO (20:14)
[2019-03-12] VITALS (7 sets, daily range): BP systolic 134–155; BP diastolic 78–93; PULSE 71–86; RESP 16–19; TEMP 36.3–37.3; O2SAT 94–98
[2019-03-12] MEDS: HYDROMORPHONE 2 MG TABLET 4 MG PO ×7 (02:26→21:34)
[2019-03-12] MEDS: hydrOXYzine pamoate 25 MG CAPSULE 50 MG PO ×2 (04:14→09:07)
[2019-03-12] MEDS: GABAPENTIN 300 MG CAPSULE PO ×3 (09:07→21:34)
[2019-03-12] MEDS: buPROPion 75 MG TABLET PO ×2 (09:08→21:34)
[2019-03-12] MEDS: ACETAMINOPHEN 325 MG TABLET 650 MG PO (09:09)
[2019-03-12] MEDS: DOCUSATE 100 MG CAPSULE PO ×2 (09:11→21:34)
--- NOTE | 2019-03-12 09:20 | PM.PNPO.1 ---
Subjective Date Patient Seen: 03/12/19 Time Patient Seen: 09:20 Interval history: She is a little bit better but still having severe spasms in the back. They will then she down the back of her legs and all the way up her back to her neck. Exam Vital Signs (past 8 hours): - 03/12/19 05:05 03/12/19 08:22 Temperature 97.3 F L 97.5 F L Pulse Rate 81 71 Respiratory Rate 18 18 Blood Pressure 134/87 152/93 H Pulse Oximetry 94 96 Fraction of Inspired Oxygen 24 Oxygen Delivery Method Room Air Oxygen Flow Rate 0 Const Orientation: alert and oriented x3 Back/Spine/Pelvis Other: Mild dry drainage. 5/5 motor both lower extremities. Objective Labs Result Diagrams: 03/10/19 05:54 03/09/19 05:52 Assessment & Plan Post-op Postoperative Procedures Operation Date: 03/09/19 07:45 Actual Procedures Side Surgeon p L2-3, L3-4 TLIF, L3-4, L4-5 Hemilami Carmita Mathias MD She is moving very slowly. Trying to work on shelter as a discharge option for her, but very limited options due to her insurance. I am going to put her on a dose of steroids to see if this helps with some of the pain as well as add a muscle relaxant. Hopefully discharge tomorrow. Quality VTE Deep Vein Thrombosis/Pulmonary Embolism Present on Admission: No
[2019-03-12] MEDS: DEXAMETHASONE 10 MG/ML VIAL IV (11:01)
--- NOTE | 2019-03-12 11:12 | CM.DPC ---
DCP Cont: Received a call from [facility] in [facility] confirming that they do not accept patient's insurance. Discussed case with Dr. Moody today, and let him know that group home rehab was challenging secondary to her insurance. He stated that he will try a steroid on her to see if it helps her with pain. He is also aware that the other option is home with assist of her friend. He stated that if she is more stable tomorrow, he could possibly discharge her. P.T. still state that patient is max assist. Left another message for Pia at [facility] inquiring if she can look at case and review insurance. Already faxed information to her yesterday. Left a message with [facility] admissions office as well. P: DCP to continue to follow closely. Continue to attempt placement. Other option is for her to go home with home health P.T. Helene Juárez RN/Tag Stringer
[2019-03-12] MEDS: diazePAM 5 MG TABLET PO ×2 (12:24→18:26)
--- NOTE | 2019-03-12 13:10 | PT.IPTN ---
Current Diagnoses Radiculopathy, lumbar region (03/05/19) Surgery Performed Operation Date: 03/09/19 07:45 Actual Procedures p L2-3, L3-4 TLIF, L3-4, L4-5 Hemilami - Carmita Mathias MD Physical Therapy Treatment Note M2 PT-IP Current Condition Start: 03/06/19 15:42 Freq: NEEDED Status: Active Protocol: Document 03/10/19 09:20 AB (Rec: 03/10/19 12:57 AB [id number]) Physical Therapy Current Condition Current Condition Evaluation Date 03/10/19 Treatment Diagnosis s/p L2-4 fusion/lami; L5S1 L microdiscectomy/hemilami; difficulty in walking Onset Date 03/05/19 Precautions Lumbar Precautions Log Roll No Twisting Limit Bending Lifting Restriction of 10 lbs Gait Belt above Incisional Area M3 PT-IP Subjective Start: 03/06/19 15:42 Freq: NEEDED Status: Active Protocol: Document 03/12/19 11:17 [facility] (Rec: 03/12/19 13:10 [facility] [email or web address]) Subjective Physical Therapy Visit Type Type Treatment Note Visit Start Time 11:17 Visit Stop Time 11:58 Total Visit Minutes 45 Number of TENTER FRAME OPERATOR Visits 1 Physical Therapy Visit Comments Patient Comments pt agreeable to do PT Therapy Pain Assessment Pain When Pain Assessed At Rest Pain Present Pain Present Pain Reported Location Left Leg Intensity 5 Scale Used Numeric (1 - 10) Pain Management Techniques Apply Cold Re-positioning Timing of Activity with Medications M4 PT-IP Mobility and Gait Start: 03/06/19 15:42 Freq: NEEDED Status: Active Protocol: Document 03/12/19 11:17 [facility] (Rec: 03/12/19 13:10 [facility] [email or web address]) PT-Bed Mobility Assessment Rolling Type of Rolling Roll to Left Level of Assist Contact Guard Assistance 1 Person Assistance Supine to Sit Supine to Sit Contact Guard Assistance 1 Person Assistance Head of Bed Elevated Bedrails Sit to Supine Sit to Supine Contact Guard Assistance 1 Person Assistance Head of Bed Elevated Bedrails Scooting Scooting to Edge of Bed Standby Assistance PT-Transfer Assessment Sit to and From Stand Sit to and from Stand Contact Guard Assistance 1 Person Assistance Use of Upper Extremities Equipment Transfer Assistive Device Gait Belt Front Wheeled Walker Orthotic/Prosthetic Devices or Brace: No Transfers Transfer Destination Bed Chair Bedside Commode Transfer Technique Stand Step Pivot Transfer Ability Level of Assist Contact Guard Assistance 1 Person Assistance Use of Upper Extremities Comments Mobility Comments Pt improved with bed mobility. Gait Assessment Gait Gait Assistance Required: Contact Guard Assist 1 Person Assist Distance (Feet) 40 Able to Maintain Weight Bearing Status Yes During Gait Assistive Devices Assistive Device Gait Belt Front Wheeled Walker Orthotic/Prosthetic Devices or Brace: No Gait Deviations General Gait Pattern Antalgic Decreased Stride Length Decreased Feet Clearance Factors Limiting Gait Function Factors Limiting Gait Function Decreased Activity Tolerance Decreased Strength Limited Range of Motion Pain Poor Balance M5 PT-IP Objective Assessments Start: 03/06/19 15:42 Freq: NEEDED Status: Active Protocol: Document 03/10/19 09:20 AB (Rec: 03/10/19 12:57 AB [id number]) Orientation Orientation/Cognition Level of Alertness Alert Orientation Name Age Place Situation Language Function Ability No Deficits Noted Safety Awareness Decreased Safety Awareness Gross Range of Motion Lower Extremity ROM Assessment Within Functional Limits Strength Lower Extremity Strength Assessment Bilaterally Impaired Comments Strength Comments LLE: 3-/5 RLE: 3+/5 Coordination Assessment Gross Coordination Gross Coordination WNL Sensation Assessment Sensation Light Touch Intact Proprioception (Position) Intact Comments Sensation Comments intact light touch and proprioception when tested but c/o numbness on LE Muscle Tone Muscle Tone WNL Yes M6 PT-IP Treatment Start: 03/06/19 15:42 Freq: NEEDED Status: Active Protocol: Document 03/11/19 12:59 AB (Rec: 03/11/19 14:24 AB [id number]) Physical Therapy Treatment Education Education Provided Precautions Safety M7 PT-IP Assessment and Plan Start: 03/06/19 15:42 Freq: NEEDED Status: Active Protocol: Document 03/12/19 11:17 [facility] (Rec: 03/12/19 13:10 [facility] [email or web address]) PT Summary Assessment and Plan Potential Rehabilitation Potential Good Summary Progress Towards Goals Slow Progress due to Pain Assessment Summary Pt with improved bed mobility and gait tolerance. Pt tolerated sitting on BSC to urinate requiring assist doffing/donning brief and pericare. Pt did not tolerate sitting in chair due to increase in pain, pt had to immediately be transferred back to bed. Goals Bed Mobility Goal Contact Guard Assistance Transfer Goal Contact Guard Assistance Front Wheeled Walker Gait Goal Contact Guard Assistance Front Wheel Walker Gait Distance 100 Days to Meet Goals 5 Frequency of Treatment Frequency Of Treatment Twice a Day Treatment Plan Physical Therapy Treatment Plan Bed Mobility Training Transfer Training Gait Training Therapeutic Exercise Balance Retraining Post Op Education Discharge Planning Hot or Cold Pack Neuromuscular Re-ed Coordination Retraining Manual Therapy Recommendations To Nursing Amount of Assist Needed 2 Person Assist Discharge Recommendations PT Discharge Recommendations SNF Rehab Equipment Needed for Home Before FWW if pt is going home Discharge
--- NOTE | 2019-03-12 13:58 | PC.NURSE ---
SHIFT NOTE: PATIENT TEARFUL INTERMITT THROUGHOUT SHIFT. ENDORSES SITUATIONAL DEPRESSION W/ AN ANXIETY COMPONENT. I TRIED TO FIX THIS MYSELF AND I JUST COULDN'T DO IT. ATTENTIVE LISTENING AND VALIDATION PROVIDED. DISCUSSED THE NEW ANTI-DEPRESSANT SHE IS ON. DISCUSSED IMPORTANCE OF FOLLOWING UP CLOSELY WITH DR. ROSALES, HER PCP R/T THIS MEDICATION AND HER EMOTIONAL WELL BEING. SHE AGREES TO DO THIS. PATIENT REPORTED VISTARIL NOT HELPING FOR SPASMS. SURGEON WROTE FOR VALIUM FOR SPASMS AND DECADRON FOR INADEQUATE PAIN MANAGEMENT. PAIN SPIKES UP TO 9/10 AND DOWN TO 5/10 AFTER MEDICATIONS. PATIENT CALLS APPROPRIATELY FOR ASSIST.
--- NOTE | 2019-03-12 15:55 | PT.IPTN ---
Current Diagnoses Radiculopathy, lumbar region (03/05/19) Surgery Performed Operation Date: 03/09/19 07:45 Actual Procedures p L2-3, L3-4 TLIF, L3-4, L4-5 Hemilami - Carmita Mathias MD Physical Therapy Treatment Note M2 PT-IP Current Condition Start: 03/06/19 15:42 Freq: NEEDED Status: Active Protocol: Document 03/10/19 09:20 AB (Rec: 03/10/19 12:57 AB [id number]) Physical Therapy Current Condition Current Condition Evaluation Date 03/10/19 Treatment Diagnosis s/p L2-4 fusion/lami; L5S1 L microdiscectomy/hemilami; difficulty in walking Onset Date 03/05/19 Precautions Lumbar Precautions Log Roll No Twisting Limit Bending Lifting Restriction of 10 lbs Gait Belt above Incisional Area M3 PT-IP Subjective Start: 03/06/19 15:42 Freq: NEEDED Status: Active Protocol: Document 03/12/19 15:41 [facility] (Rec: 03/12/19 15:55 [facility] [email or web address]) Subjective Physical Therapy Visit Type Type Treatment Note Visit Start Time 15:41 Visit Stop Time 15:49 Total Visit Minutes 8 Notes Pt had been up with RN to EOB after using BSC. Number of GRAVEL WEIGHER Visits 2 Physical Therapy Visit Comments Patient Comments pt agreeable to do PT Therapy Pain Assessment Pain When Pain Assessed At Rest Pain Present Pain Present Pain Reported Location Left Leg Intensity 7 Scale Used Numeric (1 - 10) Pain Management Techniques Apply Cold Re-positioning Timing of Activity with Medications M4 PT-IP Mobility and Gait Start: 03/06/19 15:42 Freq: NEEDED Status: Active Protocol: Document 03/12/19 15:41 [facility] (Rec: 03/12/19 15:55 [facility] [email or web address]) PT-Bed Mobility Assessment Sit to Supine Sit to Supine Contact Guard Assistance 1 Person Assistance Head of Bed Elevated Bedrails PT-Transfer Assessment Sit to and From Stand Sit to and from Stand Contact Guard Assistance 1 Person Assistance Use of Upper Extremities Equipment Transfer Assistive Device Gait Belt Front Wheeled Walker Orthotic/Prosthetic Devices or Brace: No Transfers Transfer Destination Bed Transfer Ability Level of Assist Contact Guard Assistance 1 Person Assistance Use of Upper Extremities Gait Assessment Gait Gait Assistance Required: Contact Guard Assist 1 Person Assist Distance (Feet) 2 Able to Maintain Weight Bearing Status Yes During Gait Assistive Devices Assistive Device Gait Belt Front Wheeled Walker Orthotic/Prosthetic Devices or Brace: No Gait Deviations General Gait Pattern Antalgic Decreased Stride Length Decreased Feet Clearance Factors Limiting Gait Function Factors Limiting Gait Function Decreased Activity Tolerance Decreased Strength Limited Range of Motion Pain Poor Balance Comments Gait Comments Pt stood and took a few steps then felt unable to continue. Pt took a few steps backwards to return to EOB. M5 PT-IP Objective Assessments Start: 03/06/19 15:42 Freq: NEEDED Status: Active Protocol: Document 03/10/19 09:20 AB (Rec: 03/10/19 12:57 AB [id number]) Orientation Orientation/Cognition Level of Alertness Alert Orientation Name Age Place Situation Language Function Ability No Deficits Noted Safety Awareness Decreased Safety Awareness Gross Range of Motion Lower Extremity ROM Assessment Within Functional Limits Strength Lower Extremity Strength Assessment Bilaterally Impaired Comments Strength Comments LLE: 3-/5 RLE: 3+/5 Coordination Assessment Gross Coordination Gross Coordination WNL Sensation Assessment Sensation Light Touch Intact Proprioception (Position) Intact Comments Sensation Comments intact light touch and proprioception when tested but c/o numbness on LE Muscle Tone Muscle Tone WNL Yes M6 PT-IP Treatment Start: 03/06/19 15:42 Freq: NEEDED Status: Active Protocol: Document 03/11/19 12:59 AB (Rec: 03/11/19 14:24 AB [id number]) Physical Therapy Treatment Education Education Provided Precautions Safety M7 PT-IP Assessment and Plan Start: 03/06/19 15:42 Freq: NEEDED Status: Active Protocol: Document 03/12/19 15:41 CL[facility] (Rec: 03/12/19 15:55 [facility] [email or web address]) PT Summary Assessment and Plan Summary Progress Towards Goals Slow Progress due to Pain Assessment Summary Pt is CGA for bed mobility but was unable to ambulate further than a few steps due to pain and wanted to return to bed. Pt is very tearful and requires encouragement during therapy. Goals Bed Mobility Goal Contact Guard Assistance Transfer Goal Contact Guard Assistance Front Wheeled Walker Gait Goal Contact Guard Assistance Front Wheel Walker Gait Distance 100 Days to Meet Goals 5 Frequency of Treatment Frequency Of Treatment Twice a Day Treatment Plan Physical Therapy Treatment Plan Bed Mobility Training Transfer Training Gait Training Therapeutic Exercise Balance Retraining Post Op Education Discharge Planning Hot or Cold Pack Neuromuscular Re-ed Coordination Retraining Manual Therapy Recommendations To Nursing Amount of Assist Needed 1 Person Assist Discharge Recommendations PT Discharge Recommendations SNF Rehab Equipment Needed for Home Before FWW if pt is going home Discharge
[2019-03-12] MEDS: DEXAMETHASONE 4 MG/ML VIAL IV ×2 (16:57→22:54)
[2019-03-12] MEDS: SODIUM CHLORIDE 0.9% FLUSH 10 ML IV (21:33)
[2019-03-12] MEDS: SENNOSIDES 8.6 MG TABLET 17.2 MG PO (21:33)
[2019-03-13] MEDS: HYDROMORPHONE 2 MG TABLET 4 MG PO ×7 (00:50→22:14)
[2019-03-13] MEDS: diazePAM 5 MG TABLET PO ×4 (00:50→21:30)
[2019-03-13 04:30] VITALS: BP 134/75; PULSE 72; RESP 17; TEMP 36.4; O2SAT 98
[2019-03-13] MEDS: DEXAMETHASONE 4 MG/ML VIAL IV (06:00)
[2019-03-13 08:10] VITALS: BP 134/78; PULSE 85; RESP 18; TEMP 36.3; O2SAT 96
[2019-03-13] MEDS: buPROPion 75 MG TABLET PO ×2 (08:52→21:30)
[2019-03-13] MEDS: GABAPENTIN 300 MG CAPSULE PO ×3 (08:52→21:30)
--- NOTE | 2019-03-13 09:59 | PM.PNPO.1 ---
Subjective Date Patient Seen: 03/13/19 Time Patient Seen: 07:59 Interval history: Ms. Villaseñor is a 43 yo F with hx of chronic back pain, history of lumbar multi-level laminectomies surgery, presented to the emergency room for the 3rd time in the last month for severe back pain, progressive weakness and inability to stand and walk due to leg pain and weakness. She was admitted under hospitalist service and orthopedics consulted. She is POD 4 s/p L2-4 TLIF, and L5-S1 microdiscectomy with Dr. Mathias. She had significant muscle spasms yesterday that were prohibiting her from much mobilizing. She was started on Valium and has had significant relief of muscle spasms. She has been working with PT but very slow to mobilize. She has concerns that she will not be able to take care of herself at home. She will have her mother to help her at home. Exam Vital Signs (past 8 hours): - 03/13/19 04:30 03/13/19 08:10 Temperature 97.5 F L 97.4 F L Pulse Rate 72 85 Respiratory Rate 17 18 Blood Pressure 134/75 134/78 Pulse Oximetry 98 96 Fraction of Inspired Oxygen 24 Oxygen Delivery Method Room Air Oxygen Flow Rate 0 Narrative Exam Narrative: Patient sitting up in bed in NAD. She is alert and oriented X3. Dressing on back is CDI. Calves are soft, compressible, and nontender bilaterally. Anterior thigh numbness. Objective Labs Result Diagrams: 03/10/19 05:54 03/09/19 05:52 Assessment & Plan Post-op Postoperative Procedures Operation Date: 03/09/19 07:45 Actual Procedures Side Surgeon p L2-3, L3-4 TLIF, L3-4, L4-5 Hemilami Carmita Mathias MD Patient will continue to mobilize with PT. No excessive bending, lifting, or twisting. Se is very tearful and does well with lots of encouragement with her progress. Continue current pain and muscle spasm management. Patient will likely DC home tomorrow. She may require home health services. Quality VTE Deep Vein Thrombosis/Pulmonary Embolism Present on Admission: No
[2019-03-13 11:45] VITALS: BP 154/84; PULSE 74; RESP 16; TEMP 36.8; O2SAT 97
[2019-03-13] MEDS: SODIUM CHLORIDE 0.9% FLUSH 10 ML IV ×2 (12:03→22:15)
--- NOTE | 2019-03-13 12:27 | PT.IPTN ---
Current Diagnoses Radiculopathy, lumbar region (03/05/19) Surgery Performed Operation Date: 03/09/19 07:45 Actual Procedures p L2-3, L3-4 TLIF, L3-4, L4-5 Hemilami - Carmita Mathias MD Physical Therapy Treatment Note M2 PT-IP Current Condition Start: 03/06/19 15:42 Freq: NEEDED Status: Active Protocol: Document 03/10/19 09:20 AB (Rec: 03/10/19 12:57 AB [id number]) Physical Therapy Current Condition Current Condition Evaluation Date 03/10/19 Treatment Diagnosis s/p L2-4 fusion/lami; L5S1 L microdiscectomy/hemilami; difficulty in walking Onset Date 03/05/19 Precautions Lumbar Precautions Log Roll No Twisting Limit Bending Lifting Restriction of 10 lbs Gait Belt above Incisional Area M3 PT-IP Subjective Start: 03/06/19 15:42 Freq: NEEDED Status: Active Protocol: Document 03/13/19 10:30 CLB (Rec: 03/13/19 12:27 CLB [id number]) Subjective Physical Therapy Visit Type Type Treatment Note Visit Start Time 10:30 Visit Stop Time 10:55 Total Visit Minutes 25 Number of MAJOR ACCOUNT REPRESENTATIVE Visits 3 Physical Therapy Visit Comments Patient Comments pt agreeable to do PT Therapy Pain Assessment Pain When Pain Assessed During Mobility Pain Present Pain Present Pain Reported Location Lower Back Intensity 7 Scale Used Numeric (1 - 10) Pain Management Techniques Apply Cold Re-positioning Timing of Activity with Medications M4 PT-IP Mobility and Gait Start: 03/06/19 15:42 Freq: NEEDED Status: Active Protocol: Document 03/13/19 10:30 CLB (Rec: 03/13/19 12:27 CLB [id number]) PT-Bed Mobility Assessment Rolling Type of Rolling Roll to Left Level of Assist Standby Assistance 1 Person Assistance Supine to Sit Supine to Sit Standby Assistance 1 Person Assistance Head of Bed Elevated Sit to Supine Sit to Supine Standby Assistance 1 Person Assistance Head of Bed Elevated Bedrails Scooting Scooting to Edge of Bed Standby Assistance PT-Transfer Assessment Sit to and From Stand Sit to and from Stand Standby Assistance 1 Person Assistance Use of Upper Extremities Equipment Transfer Assistive Device Gait Belt Front Wheeled Walker Orthotic/Prosthetic Devices or Brace: No Transfers Transfer Destination Bed Transfer Ability Level of Assist Standby Assistance 1 Person Assistance Use of Upper Extremities Gait Assessment Gait Gait Assistance Required: Standby Assistance 1 Person Assist Distance (Feet) 80 Able to Maintain Weight Bearing Status Yes During Gait Assistive Devices Assistive Device Gait Belt Front Wheeled Walker Orthotic/Prosthetic Devices or Brace: No Gait Deviations General Gait Pattern Antalgic Decreased Stride Length Decreased Feet Clearance Factors Limiting Gait Function Factors Limiting Gait Function Decreased Activity Tolerance Decreased Strength Limited Range of Motion Pain Comments Gait Comments Pt requires extra time for ambulation. M5 PT-IP Objective Assessments Start: 03/06/19 15:42 Freq: NEEDED Status: Active Protocol: Document 03/10/19 09:20 AB (Rec: 03/10/19 12:57 AB [id number]) Orientation Orientation/Cognition Level of Alertness Alert Orientation Name Age Place Situation Language Function Ability No Deficits Noted Safety Awareness Decreased Safety Awareness Gross Range of Motion Lower Extremity ROM Assessment Within Functional Limits Strength Lower Extremity Strength Assessment Bilaterally Impaired Comments Strength Comments LLE: 3-/5 RLE: 3+/5 Coordination Assessment Gross Coordination Gross Coordination WNL Sensation Assessment Sensation Light Touch Intact Proprioception (Position) Intact Comments Sensation Comments intact light touch and proprioception when tested but c/o numbness on LE Muscle Tone Muscle Tone WNL Yes M6 PT-IP Treatment Start: 03/06/19 15:42 Freq: NEEDED Status: Active Protocol: Document 03/11/19 12:59 AB (Rec: 03/11/19 14:24 AB [id number]) Physical Therapy Treatment Education Education Provided Precautions Safety M7 PT-IP Assessment and Plan Start: 03/06/19 15:42 Freq: NEEDED Status: Active Protocol: Document 03/13/19 10:30 CLB (Rec: 03/13/19 12:27 CLB [id number]) PT Summary Assessment and Plan Summary Progress Towards Goals Slow Progress due to Pain Assessment Summary Pt is SBA for all mobility but required 25 minutes to get out of bed and ambulate 80ft. Pt continues to have increased pain and is very emotional during therapy. Pt stated she would not be able to stay with her friend due to her increased need for assistance with toileting and showering. Pt would benefit from SNF rehab to improve activity tolerance for safe and independent mobility. Goals Bed Mobility Goal Contact Guard Assistance Transfer Goal Contact Guard Assistance Front Wheeled Walker Gait Goal Contact Guard Assistance Front Wheel Walker Gait Distance 100 Days to Meet Goals 5 Frequency of Treatment Frequency Of Treatment Twice a Day Treatment Plan Physical Therapy Treatment Plan Bed Mobility Training Transfer Training Gait Training Therapeutic Exercise Balance Retraining Post Op Education Discharge Planning Hot or Cold Pack Neuromuscular Re-ed Coordination Retraining Manual Therapy Recommendations To Nursing Amount of Assist Needed 1 Person Assist Discharge Recommendations PT Discharge Recommendations SNF Rehab Equipment Needed for Home Before FWW if pt is going home Discharge
[2019-03-13] MEDS: hydrOXYzine pamoate 25 MG CAPSULE 50 MG PO (15:43)
--- NOTE | 2019-03-13 15:43 | PT.IPTN ---
Current Diagnoses Radiculopathy, lumbar region (03/05/19) Surgery Performed Operation Date: 03/09/19 07:45 Actual Procedures p L2-3, L3-4 TLIF, L3-4, L4-5 Hemilami - Carmita Mathias MD Physical Therapy Treatment Note M2 PT-IP Current Condition Start: 03/06/19 15:42 Freq: NEEDED Status: Active Protocol: Document 03/10/19 09:20 AB (Rec: 03/10/19 12:57 AB [id number]) Physical Therapy Current Condition Current Condition Evaluation Date 03/10/19 Treatment Diagnosis s/p L2-4 fusion/lami; L5S1 L microdiscectomy/hemilami; difficulty in walking Onset Date 03/05/19 Precautions Lumbar Precautions Log Roll No Twisting Limit Bending Lifting Restriction of 10 lbs Gait Belt above Incisional Area M3 PT-IP Subjective Start: 03/06/19 15:42 Freq: NEEDED Status: Active Protocol: Document 03/13/19 13:38 CLB (Rec: 03/13/19 15:43 CLB [id number]) Subjective Physical Therapy Visit Type Type Treatment Note Visit Start Time 13:38 Visit Stop Time 14:07 Total Visit Minutes 29 Notes Co-treated with OT Saumya. Performed TUG test. Number of INSPECTOR FINAL ASSEMBLY ELECTRICAL Visits 4 Physical Therapy Visit Comments Patient Comments pt agreeable to do PT Therapy Pain Assessment Pain When Pain Assessed During Mobility Pain Present Pain Present Pain Reported Location Lower Back Intensity 7 Scale Used Numeric (1 - 10) Pain Management Techniques Apply Cold Re-positioning Timing of Activity with Medications M4 PT-IP Mobility and Gait Start: 03/06/19 15:42 Freq: NEEDED Status: Active Protocol: Document 03/13/19 13:38 CLB (Rec: 03/13/19 15:43 CLB [id number]) PT-Bed Mobility Assessment Rolling Type of Rolling Roll to Left Level of Assist Standby Assistance 1 Person Assistance Supine to Sit Supine to Sit Standby Assistance 1 Person Assistance Sit to Supine Sit to Supine Standby Assistance 1 Person Assistance Scooting Scooting to Edge of Bed Standby Assistance PT-Transfer Assessment Sit to and From Stand Sit to and from Stand Standby Assistance 1 Person Assistance Use of Upper Extremities Equipment Transfer Assistive Device Gait Belt Front Wheeled Walker Orthotic/Prosthetic Devices or Brace: No Transfers Transfer Destination Bed Chair Transfer Ability Level of Assist Standby Assistance 1 Person Assistance Use of Upper Extremities Comments Mobility Comments Pt able to perform supine<>sit SBA from flat bed which increased pain. Pt with increased pain in sitting. Pt c/o pain sitting on EOB, chair and BSC stating she gets spasms with loss of feeling in legs. Gait Assessment Gait Gait Assistance Required: Standby Assistance 1 Person Assist Distance (Feet) 20 Able to Maintain Weight Bearing Status Yes During Gait Assistive Devices Assistive Device Gait Belt Front Wheeled Walker Orthotic/Prosthetic Devices or Brace: No Gait Deviations General Gait Pattern Antalgic Decreased Stride Length Decreased Feet Clearance Factors Limiting Gait Function Factors Limiting Gait Function Decreased Activity Tolerance Decreased Strength Limited Range of Motion Pain Comments Gait Comments Pt continues to require extra time for ambulation. Pt performed TUG test with score of 3 minutes and 22 seconds. Stair Climbing Assessment Comments Stair Climbing Comments unable to perform due to pain and activity tolerance. M5 PT-IP Objective Assessments Start: 03/06/19 15:42 Freq: NEEDED Status: Active Protocol: Document 03/10/19 09:20 AB (Rec: 03/10/19 12:57 AB [id number]) Orientation Orientation/Cognition Level of Alertness Alert Orientation Name Age Place Situation Language Function Ability No Deficits Noted Safety Awareness Decreased Safety Awareness Gross Range of Motion Lower Extremity ROM Assessment Within Functional Limits Strength Lower Extremity Strength Assessment Bilaterally Impaired Comments Strength Comments LLE: 3-/5 RLE: 3+/5 Coordination Assessment Gross Coordination Gross Coordination WNL Sensation Assessment Sensation Light Touch Intact Proprioception (Position) Intact Comments Sensation Comments intact light touch and proprioception when tested but c/o numbness on LE Muscle Tone Muscle Tone WNL Yes M6 PT-IP Treatment Start: 03/06/19 15:42 Freq: NEEDED Status: Active Protocol: Document 03/11/19 12:59 AB (Rec: 03/11/19 14:24 AB [id number]) Physical Therapy Treatment Education Education Provided Precautions Safety M7 PT-IP Assessment and Plan Start: 03/06/19 15:42 Freq: NEEDED Status: Active Protocol: Document 03/13/19 13:38 CLB (Rec: 03/13/19 15:43 CLB [id number]) PT Summary Assessment and Plan Summary Progress Towards Goals Slow Progress due to Pain Assessment Summary Pt is SBA for bed mobility and sit<>stand with increase in time for ambulation. Pt TUG test score of 3 minutes and 22 seconds. Pt would benefit SNF rehab to improve strength, activity tolerance and functional independence before returning home. Goals Bed Mobility Goal Contact Guard Assistance Transfer Goal Contact Guard Assistance Front Wheeled Walker Gait Goal Contact Guard Assistance Front Wheel Walker Gait Distance 100 Days to Meet Goals 5 Frequency of Treatment Frequency Of Treatment Twice a Day Treatment Plan Physical Therapy Treatment Plan Bed Mobility Training Transfer Training Gait Training Therapeutic Exercise Balance Retraining Post Op Education Discharge Planning Hot or Cold Pack Neuromuscular Re-ed Coordination Retraining Manual Therapy Recommendations To Nursing Amount of Assist Needed 1 Person Assist Discharge Recommendations PT Discharge Recommendations SNF Rehab Equipment Needed for Home Before FWW if pt is going home, Discharge shower chair, raised toilet seat and bed rail.
--- NOTE | 2019-03-13 15:45 | PC.NURSE ---
AM shift Pt has been tearful this shift. Ambulating into BR which is big goal for Pt mmobility. Muscle spasms improved with addition of Valium. Dilaudid dosing consistant all day. Rating pain 6-8/10. Unable to sit, or provide own reji care. SL IV. Ambulation and mobility remain slow, but making progress.
--- NOTE | 2019-03-13 15:46 | OT.IP.TRT ---
Current Diagnoses Radiculopathy, lumbar region (03/05/19) Surgery Performed Operation Date: 03/09/19 07:45 Actual Procedures p L2-3, L3-4 TLIF, L3-4, L4-5 Tom Mathias MD Occupational Therapy Treatment Note M2 OT-IP Current Condition Start: 03/07/19 14:41 Freq: Status: Active Protocol: Document 03/10/19 09:50 [facility] (Rec: 03/10/19 13:23 [facility] [id number]) Occupational Therapy Current Condition Current Condition Evaluation Date 03/10/19 Treatment Diagnosis SPinal Stenosis Diagnosis Onset Date 03/05/19 Post Operative Precautions Lumbar Precautions Log Roll No Twisting Limit Bending Lifting Restriction of 10 lbs Gait Belt above Incisional Area Weight Bearing Status Weight Bearing Status Weight Bear as Tolerated M3 OT- IP Subjective and Pain Start: 03/07/19 14:41 Freq: Status: Active Protocol: Document 03/13/19 15:16 [facility] (Rec: 03/13/19 15:46 [facility] [id number]) OT- Subjective Occupational Therapy Visit Type Type Treatment Note Visit Start Time 13:38 Visit Stop Time 14:02 Total Visit Minutes 24 Occupational Therapy Visit Comments Patient Comments Pt agreeable to get up. OT Pain Assessment Pain When Pain Assessed At Rest Pain Present Pain Present Pain Reported M4 OT- IP ADL's Start: 03/07/19 14:41 Freq: Status: Active Protocol: Document 03/13/19 15:16 [facility] (Rec: 03/13/19 15:46 [facility] [id number]) OT ADL-Dressing General Eval Areas Needing Assistance Socks M5 OT- IP IADL's Start: 03/07/19 14:41 Freq: Status: Active Protocol: Document 03/10/19 09:50 [facility] (Rec: 03/10/19 13:23 [facility] [id number]) OT-Instrumental Activities of Daily Living Deficits IADL Deficits Identified Deficits Home Safety Awareness Awareness of Need for Assistance at Home Good Awareness Ability to Problem Solve Emergency Able to Problem Solve Situations Medication Management Medication Management No Deficits Identified Money Management Money Management No Deficits Identified M6 OT- IP Functional Cognition Start: 03/07/19 14:41 Freq: Status: Active Protocol: Document 03/13/19 15:16 [facility] (Rec: 03/13/19 15:46 [facility] [id number]) Cognitive Factors Limiting Selfcare Function Cognitive Ability Level of Alertness Alert Patient Orientation Name Age Birthday Month Date Year Day of Week Place Situation Attention Span Ability Capable of Focused Attention Ability to Follow Commands Able to Follow One Step Commands Safety Awareness Decreased Ability to Apply Precautions Underestimates Need for Assistance Cognitive Comments Cognitive Assessment Comments Pty continues to need lots of encouragement , increased times and reassurance that she is capable of doing more than she feels that she can do. M7 OT- IP Mobility and Balance Start: 03/07/19 14:41 Freq: Status: Active Protocol: Document 03/13/19 15:16 [facility] (Rec: 03/13/19 15:46 [facility] [id number]) OT- Bed Mobility Assessment Rolling Type of Rolling Roll to Left Level of Assistance Standby Assistance Supine to Sit Supine to Sit Assist Standby Assistance Sit to Supine Sit to Supine Assist Contact Guard Assistance 1 Person Assistance OT-Transfer Assessment Sit to and From Stand Sit to and from Stand Standby Assistance 1 Person Assistance Transfers Transfer Ability Standby Assistance Contact Guard Assistance Technique Transfer Destination Bed Chair Devices Transfer Assistive Devices Gait Belt Front Wheeled Walker Comments Mobility Comments Pt scored 3 min and 22 seconds for TUG, score of 30 seconds of more indicated greater risk of falls. OT- Balance Assessment Sitting Balance and Reactions Static Sitting Balance Ability Good Standing Balance and Reactions Static Standing Balance Ability Fair M8 OT- IP Objective Assessments Start: 03/07/19 14:41 Freq: Status: Active Protocol: Document 03/10/19 09:50 [facility] (Rec: 03/10/19 13:23 [facility] [id number]) OT Gross Range of Motion Upper Extremity Range of Motion Assessment Within Functional Limits OT Strength Upper Extremity Strength Assessment Within Functional Limits OT Sensation Assessment Comments Summary Comments Pt has paraesthesias in B hands since C spine fusion 2011. M9 OT- IP Assessment and Plan Start: 03/07/19 14:41 Freq: Status: Active Protocol: Document 03/13/19 15:16 [facility] (Rec: 03/13/19 15:46 [facility] [id number]) OT Summary Assessment and Plan Potential Rehabilitation Potential Good Analytic Complexity at Evaluation Low Summary OT Impairments Pain Balance Functional Mobility Grooming Dressing Toileting Bathing Toilet Transfers Shower Transfers Progress Towards Goals Slow Progress due to Pain Slow Progress due to Activity Tolerance Assessment Summary Much improved and per case management notes, skilled rehab may not be covered by her insurance. Pt feel a little more open to go to friend's house where there are no steps to enter. Pt very emotional and states that her friend is not able to assist her for anything but later agreed friend could be able to assist to give her items, and stand by in the shower if needed. However due to decreased sitting tolerance, activity tolerance , pt will still strongly benefit from skilled rehab prior to going home. Goals Self-Feeding Goal Independent Grooming Goal Standby Assistance Dressing Goal Minimal Assistance Toileting Goal Minimal Assistance Bathing Goal Moderate Assistance Toilet Transfer Goal Minimal Assistance Shower Transfer Goal Minimal Assistance Patient/Caregiver Education Goal Demonstrate Post-Op Precautions Demonstrate Energy Conservation and Pacing Caregiver Independent Assisting Patient Days to Meet Goals 5 Frequency of Treatment Frequency Of Treatment Once a Day Treatment Plan OT Treatment Plan ADL Training Functional Mobility Patient/Family Education Discharge Planning Other Treatment Recommendations and Next Stand at sink from recliner, Treatment Focus practice LB AED. Discharge Recommendations OT Discharge Recommendations Home with Assistance Home Health SNF Rehab Home Equipment Needs raised toilet seat, shower chair, FWW, toilet aid, bed rail
[2019-03-13 16:04] VITALS: BP 140/93; PULSE 80; RESP 16; TEMP 37.5; O2SAT 94
[2019-03-13 19:01] VITALS: BP 152/95; PULSE 85; RESP 16; TEMP 37.5; O2SAT 98
[2019-03-13] MEDS: SENNOSIDES 8.6 MG TABLET 17.2 MG PO (21:30)
[2019-03-13] MEDS: DOCUSATE 100 MG CAPSULE PO (21:30)
[2019-03-14 01:10] VITALS: BP 134/84; PULSE 75; RESP 18; TEMP 36.5; O2SAT 96
[2019-03-14] MEDS: hydrOXYzine pamoate 25 MG CAPSULE 50 MG PO ×3 (01:22→22:36)
[2019-03-14] MEDS: HYDROMORPHONE 2 MG TABLET 4 MG PO ×7 (01:46→22:36)
[2019-03-14] MEDS: diazePAM 5 MG TABLET PO ×3 (03:25→22:36)
[2019-03-14 05:24] VITALS: BP 120/71; PULSE 76; RESP 18; TEMP 36.4; O2SAT 98
[2019-03-14 07:55] VITALS: BP 121/77; PULSE 75; RESP 16; TEMP 36.4; O2SAT 96
--- NOTE | 2019-03-14 08:54 | PM.PNPO.1 ---
Subjective Date Patient Seen: 03/14/19 Time Patient Seen: 08:54 Interval history: Ms. Villaseñor is a 43 yo F with hx of chronic back pain, history of lumbar multi-level laminectomies surgery, presented to the emergency room for the 3rd time in the last month for severe back pain, progressive weakness and inability to stand and walk due to leg pain and weakness. She was admitted under hospitalist service and orthopedics consulted. She is POD 5 s/p L2-4 TLIF, and L5-S1 microdiscectomy with Dr. Mathias. She states her muscle spasms are being well treated with valium. Her biggest complaint this morning is numbness with sitting. She states she is not sure how she is going to be able to go home with this numbness when she is sitting. She is having difficulty going from bed to ambulating. She is not sure if her family is going to be able to care for her. She has been working with PT but very slow to mobilize. She has concerns that she will not be able to take care of herself at home. She will have her mother and friend to help her at her friend's home. She is very tearful this morning. Exam Vital Signs (past 8 hours): - 03/14/19 01:10 03/14/19 05:24 03/14/19 07:55 Temperature 97.7 F 97.6 F 97.5 F L Pulse Rate 75 76 75 Respiratory Rate 18 18 16 Blood Pressure 134/84 120/71 121/77 Pulse Oximetry 96 98 96 Fraction of Inspired Oxygen 24 Oxygen Delivery Method Room Air Oxygen Flow Rate 0 Narrative Exam Narrative: Patient lying in bed. She is alert and oriented x3. Calves are soft, compressible, nontender bilaterally. Pulses are symmetrical. Objective Labs Result Diagrams: 03/10/19 05:54 03/09/19 05:52 Assessment & Plan Post-op Postoperative Procedures Operation Date: 03/09/19 07:45 Actual Procedures Side Surgeon p L2-3, L3-4 TLIF, L3-4, L4-5 Hemilami Carmita Mathias MD Patient's insurance is not covering [facility]. Patient at the very least will need home health services. Patient would benefit from consulting with psychosocial rehabilitation counselor today. She was recently started on Wellbutrin as well that could be contributing to her emotional state. 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 She needs to work with physical therapy as well with her family. Sherry keeps mentioning that her family cannot care for her. There needs to be a clear discussion about what everyone is capable of doing for her care. Will discuss discharge home with home health services tomorrow. Quality VTE Deep Vein Thrombosis/Pulmonary Embolism Present on Admission: No
[2019-03-14] MEDS: buPROPion 75 MG TABLET PO ×2 (09:26→20:26)
[2019-03-14] MEDS: GABAPENTIN 300 MG CAPSULE PO ×3 (09:26→20:25)
[2019-03-14] MEDS: DOCUSATE 100 MG CAPSULE PO ×2 (12:07→20:25)
[2019-03-14 12:50] VITALS: BP 144/91; PULSE 93; RESP 18; TEMP 36.7; O2SAT 95
--- NOTE | 2019-03-14 14:21 | OT.IP.TRT ---
Current Diagnoses Radiculopathy, lumbar region (03/05/19) Surgery Performed Operation Date: 03/09/19 07:45 Actual Procedures p L2-3, L3-4 TLIF, L3-4, L4-5 Tom Mathias MD Occupational Therapy Treatment Note M2 OT-IP Current Condition Start: 03/07/19 14:41 Freq: Status: Active Protocol: Document 03/10/19 09:50 [facility] (Rec: 03/10/19 13:23 [facility] [email or web address]) Occupational Therapy Current Condition Current Condition Evaluation Date 03/10/19 Treatment Diagnosis SPinal Stenosis Diagnosis Onset Date 03/05/19 Post Operative Precautions Lumbar Precautions Log Roll No Twisting Limit Bending Lifting Restriction of 10 lbs Gait Belt above Incisional Area Weight Bearing Status Weight Bearing Status Weight Bear as Tolerated M3 OT- IP Subjective and Pain Start: 03/07/19 14:41 Freq: Status: Active Protocol: Document 03/14/19 12:48 [facility] (Rec: 03/14/19 13:00 [facility] [email or web address]) OT- Subjective Occupational Therapy Visit Type Type Treatment Note Visit Start Time 10:15 Visit Stop Time 10:30 Total Visit Minutes 15 Notes Pt also seen from 1320 to 1350 to do step with INSTRUCTOR ADJUNCT SURGICAL TECHNICIAN and go over equipment needs. Occupational Therapy Visit Comments Patient Comments Pt sitting on the BSC when coming to see pt for OT visit. Pt very tearful regarding feeling not capable to take care of herself. In PM pt agreeable to try a step with INSTRUCTOR ADJUNCT SURGICAL TECHNICIAN and OT. OT Pain Assessment Pain When Pain Assessed During Mobility Pain Present Pain Present Pain Reported M4 OT- IP ADL's Start: 03/07/19 14:41 Freq: Status: Active Protocol: Document 03/14/19 12:48 [facility] (Rec: 03/14/19 13:00 [facility] [email or web address]) OT ADL-Dressing General Eval Lower Body Dressing Ability Moderate Assistance Areas Needing Assistance Underpants/Brief Pants/Shorts Comments OT Dressing Comments Pt states in too much pain to be able to reach down to pull up her pants/brief. Able to show pt to use counter top assembler to pull up pants/brief up high over her knees and therefore after standing to be able to reach them. Pt not able to do so due to pain and wanting assist from therapist to complete. In PM session pt able to reach down to get pants up when getting off the toilet. Educated to pt for LB AED, issued counter top assembler, sock aid, and long handled shoe horn. Pt states did not want to practice and would have someone there if going out of the house. Pt states would wear house gowns to increase ease to get to and from the toilet. OT ADL-Toileting General Evaluation Toileting Ability Maximum Assistance Areas Needing Assistance Manage Clothing Perform Perineal Hygiene Comments OT Toileting Comments Pt unable to reach for pericare needs. Continue to suggest use of toilet aid as per pt has used in the past. Pt states to order toilet aid. M5 OT- IP IADL's Start: 03/07/19 14:41 Freq: Status: Active Protocol: Document 03/10/19 09:50 [facility] (Rec: 03/10/19 13:23 [facility] [email or web address]) OT-Instrumental Activities of Daily Living Deficits IADL Deficits Identified Deficits Home Safety Awareness Awareness of Need for Assistance at Home Good Awareness Ability to Problem Solve Emergency Able to Problem Solve Situations Medication Management Medication Management No Deficits Identified Money Management Money Management No Deficits Identified M6 OT- IP Functional Cognition Start: 03/07/19 14:41 Freq: Status: Active Protocol: Document 03/14/19 12:48 [facility] (Rec: 03/14/19 13:00 [facility] [email or web address]) Cognitive Factors Limiting Selfcare Function Cognitive Ability Level of Alertness Alert Patient Orientation Name Age Birthday Month Date Year Day of Week Place Situation Attention Span Ability Capable of Focused Attention Ability to Follow Commands Able to Follow One Step Commands Safety Awareness Decreased Ability to Apply Precautions Underestimates Need for Assistance Cognitive Comments Cognitive Assessment Comments Pt very tearful and needing lots of time and encouragement to complete tasks. M7 OT- IP Mobility and Balance Start: 03/07/19 14:41 Freq: Status: Active Protocol: Document 03/14/19 12:48 [facility] (Rec: 03/14/19 13:00 [facility] [email or web address]) OT- Bed Mobility Assessment Sit to Supine Sit to Supine Assist Standby Assistance Head of Bed Elevated OT-Transfer Assessment Sit to and From Stand Sit to and from Stand Standby Assistance 1 Person Assistance Transfers Transfer Ability Standby Assistance Technique Transfer Destination Bed Bedside Commode Devices Transfer Assistive Devices Gait Belt Front Wheeled Walker Comments Mobility Comments SBA to stand form high BSC and to get back into bed with HOB slightly upright. Pt able to step up a step with FWW and CGA x2 and step down with MOD A x2 with FWW. Pt very anxious and needing cues to focus and relax. OT- Balance Assessment Sitting Balance and Reactions Static Sitting Balance Ability Good Standing Balance and Reactions Static Standing Balance Ability Fair M8 OT- IP Objective Assessments Start: 03/07/19 14:41 Freq: Status: Active Protocol: Document 03/10/19 09:50 [facility] (Rec: 03/10/19 13:23 [facility] [email or web address]) OT Gross Range of Motion Upper Extremity Range of Motion Assessment Within Functional Limits OT Strength Upper Extremity Strength Assessment Within Functional Limits OT Sensation Assessment Comments Summary Comments Pt has paraesthesias in B hands since C spine fusion 2011. M9 OT- IP Assessment and Plan Start: 03/07/19 14:41 Freq: Status: Active Protocol: Document 03/14/19 12:48 [facility] (Rec: 03/14/19 13:00 [facility] [email or web address]) OT Summary Assessment and Plan Potential Rehabilitation Potential Good Analytic Complexity at Evaluation Low Summary OT Impairments Pain Balance Functional Mobility Grooming Dressing Toileting Bathing Toilet Transfers Shower Transfers Progress Towards Goals Slow Progress due to Pain Slow Progress due to Activity Tolerance Assessment Summary Pt still needing extensive assist for dressing and toileting needs today and would benefit from skilled rehab and use of AED to assist as well. Pt main barriers are activity tolerance and pain control. Pt know looking to stay at her sister's house and therefore would have assist for needs when sister not at work. In addition states may have friends to check on her during the day. Pt states to call [employer] for equipment needs. Goals Self-Feeding Goal Independent Grooming Goal Independent Dressing Goal Independent Long Handled Shoe Horn Peanut Farmer Sock Aid Toileting Goal Independent Bathing Goal Standby Assistance Toilet Transfer Goal Independent Shower Transfer Goal Standby Assistance Patient/Caregiver Education Goal Demonstrate Post-Op Precautions Demonstrate Energy Conservation and Pacing Caregiver Independent Assisting Patient OT-Other Goals Goals above for going home / friend's house. Days to Meet Goals 5 Frequency of Treatment Frequency Of Treatment Once a Day Treatment Plan OT Treatment Plan ADL Training Functional Mobility Patient/Family Education Discharge Planning Other Treatment Recommendations and Next Stand at sink from recliner, Treatment Focus practice LB AED. Discharge Recommendations OT Discharge Recommendations Home with Assistance Home Health SNF Rehab Home Equipment Needs raised toilet seat versus BSC, shower chair, FWW, toilet aid , bed rail
[2019-03-14] MEDS: SODIUM CHLORIDE 0.9% FLUSH 10 ML IV ×2 (14:26→20:26)
--- NOTE | 2019-03-14 15:03 | PT.IPTN ---
Current Diagnoses Radiculopathy, lumbar region (03/05/19) Surgery Performed Operation Date: 03/09/19 07:45 Actual Procedures p L2-3, L3-4 TLIF, L3-4, L4-5 Hemilami - Carmita Mathias MD Physical Therapy Treatment Note M2 PT-IP Current Condition Start: 03/06/19 15:42 Freq: NEEDED Status: Active Protocol: Document 03/10/19 09:20 [facility] (Rec: 03/10/19 12:57 [facility] [id number]) Physical Therapy Current Condition Current Condition Evaluation Date 03/10/19 Treatment Diagnosis s/p L2-4 fusion/lami; L5S1 L microdiscectomy/hemilami; difficulty in walking Onset Date 03/05/19 Precautions Lumbar Precautions Log Roll No Twisting Limit Bending Lifting Restriction of 10 lbs Gait Belt above Incisional Area M3 PT-IP Subjective Start: 03/06/19 15:42 Freq: NEEDED Status: Active Protocol: Document 03/14/19 10:15 [facility] (Rec: 03/14/19 15:03 [facility] [id number]) Subjective Physical Therapy Visit Type Type Treatment Note Visit Start Time 10:15 Visit Stop Time 10:30 Total Visit Minutes 15 Number of TRAWL NET MAKER Visits 5 Physical Therapy Visit Comments Patient Comments pt agreeable to do PT Therapy Pain Assessment Pain When Pain Assessed During Mobility Pain Present Pain Present Pain Reported M4 PT-IP Mobility and Gait Start: 03/06/19 15:42 Freq: NEEDED Status: Active Protocol: Document 03/14/19 10:15 [facility] (Rec: 03/14/19 15:03 [facility] [id number]) PT-Bed Mobility Assessment Sit to Supine Sit to Supine Standby Assistance 1 Person Assistance PT-Transfer Assessment Sit to and From Stand Sit to and from Stand Standby Assistance 1 Person Assistance Use of Upper Extremities Equipment Transfer Assistive Device Gait Belt Front Wheeled Walker Orthotic/Prosthetic Devices or Brace: No Transfers Transfer Destination Bed Toilet Transfer Ability Level of Assist Standby Assistance 1 Person Assistance Use of Upper Extremities Gait Assessment Gait Gait Assistance Required: Standby Assistance 1 Person Assist Distance (Feet) 10 Able to Maintain Weight Bearing Status Yes During Gait Assistive Devices Assistive Device Gait Belt Front Wheeled Walker Orthotic/Prosthetic Devices or Brace: No Gait Deviations General Gait Pattern Antalgic Decreased Stride Length Decreased Feet Clearance Factors Limiting Gait Function Factors Limiting Gait Function Decreased Activity Tolerance Decreased Strength Limited Range of Motion Pain M5 PT-IP Objective Assessments Start: 03/06/19 15:42 Freq: NEEDED Status: Active Protocol: Document 03/10/19 09:20 [facility] (Rec: 03/10/19 12:57 [facility] [id number]) Orientation Orientation/Cognition Level of Alertness Alert Orientation Name Age Place Situation Language Function Ability No Deficits Noted Safety Awareness Decreased Safety Awareness Gross Range of Motion Lower Extremity ROM Assessment Within Functional Limits Strength Lower Extremity Strength Assessment Bilaterally Impaired Comments Strength Comments LLE: 3-/5 RLE: 3+/5 Coordination Assessment Gross Coordination Gross Coordination WNL Sensation Assessment Sensation Light Touch Intact Proprioception (Position) Intact Comments Sensation Comments intact light touch and proprioception when tested but c/o numbness on LE Muscle Tone Muscle Tone WNL Yes M6 PT-IP Treatment Start: 03/06/19 15:42 Freq: NEEDED Status: Active Protocol: Document 03/11/19 12:59 [facility] (Rec: 03/11/19 14:24 [facility] [id number]) Physical Therapy Treatment Education Education Provided Precautions Safety M7 PT-IP Assessment and Plan Start: 03/06/19 15:42 Freq: NEEDED Status: Active Protocol: Document 03/14/19 10:15 [facility] (Rec: 03/14/19 15:03 [facility] [id number]) PT Summary Assessment and Plan Summary Progress Towards Goals Slow Progress due to Pain Assessment Summary Pt on toilet upon arrival, pt attempted pericare. Pt required assist with pericare and donning brief and pants. Pt ambulated to bed only due to increased pain after sittin on toilet. Goals Bed Mobility Goal Contact Guard Assistance Transfer Goal Contact Guard Assistance Front Wheeled Walker Gait Goal Contact Guard Assistance Front Wheel Walker Gait Distance 100 Days to Meet Goals 5 Frequency of Treatment Frequency Of Treatment Twice a Day Treatment Plan Physical Therapy Treatment Plan Bed Mobility Training Transfer Training Gait Training Therapeutic Exercise Balance Retraining Post Op Education Discharge Planning Hot or Cold Pack Neuromuscular Re-ed Coordination Retraining Manual Therapy Recommendations To Nursing Amount of Assist Needed 1 Person Assist Discharge Recommendations PT Discharge Recommendations SNF Rehab Equipment Needed for Home Before FWW if pt is going home, Discharge shower chair, raised toilet seat and bed rail.
[2019-03-14 15:12] VITALS: BP 141/91; PULSE 84; RESP 18; TEMP 36.6; O2SAT 94
--- NOTE | 2019-03-14 15:12 | PT.IPTN ---
Current Diagnoses Radiculopathy, lumbar region (03/05/19) Surgery Performed Operation Date: 03/09/19 07:45 Actual Procedures p L2-3, L3-4 TLIF, L3-4, L4-5 Hemilami - Carmita Mathias MD Physical Therapy Treatment Note M2 PT-IP Current Condition Start: 03/06/19 15:42 Freq: NEEDED Status: Active Protocol: Document 03/10/19 09:20 [facility] (Rec: 03/10/19 12:57 [facility] [id number]) Physical Therapy Current Condition Current Condition Evaluation Date 03/10/19 Treatment Diagnosis s/p L2-4 fusion/lami; L5S1 L microdiscectomy/hemilami; difficulty in walking Onset Date 03/05/19 Precautions Lumbar Precautions Log Roll No Twisting Limit Bending Lifting Restriction of 10 lbs Gait Belt above Incisional Area M3 PT-IP Subjective Start: 03/06/19 15:42 Freq: NEEDED Status: Active Protocol: Document 03/14/19 13:30 [facility] (Rec: 03/14/19 15:12 [facility] [id number]) Subjective Physical Therapy Visit Type Type Treatment Note Visit Start Time 13:30 Visit Stop Time 13:55 Total Visit Minutes 25 Number of MOTOR VEHICLE EMISSIONS INSPECTOR Visits 6 Physical Therapy Visit Comments Patient Comments pt agreeable to trial platform stair climbing Therapy Pain Assessment Pain When Pain Assessed During Mobility Pain Present Pain Present Pain Reported M4 PT-IP Mobility and Gait Start: 03/06/19 15:42 Freq: NEEDED Status: Active Protocol: Document 03/14/19 13:30 [facility] (Rec: 03/14/19 15:12 [facility] [id number]) PT-Bed Mobility Assessment Rolling Type of Rolling Roll to Left Level of Assist Standby Assistance 1 Person Assistance Supine to Sit Supine to Sit Standby Assistance 1 Person Assistance Sit to Supine Sit to Supine Standby Assistance 1 Person Assistance Scooting Scooting to Edge of Bed Standby Assistance PT-Transfer Assessment Sit to and From Stand Sit to and from Stand Standby Assistance 1 Person Assistance Use of Upper Extremities Equipment Transfer Assistive Device Gait Belt Front Wheeled Walker Orthotic/Prosthetic Devices or Brace: No Transfers Transfer Destination Bed Transfer Ability Level of Assist Standby Assistance 1 Person Assistance Use of Upper Extremities Gait Assessment Gait Gait Assistance Required: Standby Assistance 1 Person Assist Distance (Feet) 5 Able to Maintain Weight Bearing Status Yes During Gait Assistive Devices Assistive Device Gait Belt Front Wheeled Walker Orthotic/Prosthetic Devices or Brace: No Gait Deviations General Gait Pattern Antalgic Decreased Stride Length Decreased Feet Clearance Factors Limiting Gait Function Factors Limiting Gait Function Decreased Activity Tolerance Decreased Strength Limited Range of Motion Pain Comments Gait Comments Pt ambulated to platform step in room only. Stair Climbing Assessment Evaluation Level of Assist On Stairs Minimal Assistance Moderate Assistance 2 Person Assistance Devices Stair Climbing Assistive Devices Front Wheel Walker Technique/Endurance Stair Climbing Direction Ascend and Descend Stair Climbing Technique Step to Step Number of Steps Climbed 1 Query Text: Stair Climbing Set # Repetitions (reps) 1 Comments Stair Climbing Comments Pt required Min A x2 to go up flatform step with step by step instructions and encouragement. Pt required rest break on platform step before stepping down from step requiring Mod A x2. M5 PT-IP Objective Assessments Start: 03/06/19 15:42 Freq: NEEDED Status: Active Protocol: Document 03/10/19 09:20 [facility] (Rec: 03/10/19 12:57 [facility] [id number]) Orientation Orientation/Cognition Level of Alertness Alert Orientation Name Age Place Situation Language Function Ability No Deficits Noted Safety Awareness Decreased Safety Awareness Gross Range of Motion Lower Extremity ROM Assessment Within Functional Limits Strength Lower Extremity Strength Assessment Bilaterally Impaired Comments Strength Comments LLE: 3-/5 RLE: 3+/5 Coordination Assessment Gross Coordination Gross Coordination WNL Sensation Assessment Sensation Light Touch Intact Proprioception (Position) Intact Comments Sensation Comments intact light touch and proprioception when tested but c/o numbness on LE Muscle Tone Muscle Tone WNL Yes M6 PT-IP Treatment Start: 03/06/19 15:42 Freq: NEEDED Status: Active Protocol: Document 03/11/19 12:59 [facility] (Rec: 03/11/19 14:24 [facility] [id number]) Physical Therapy Treatment Education Education Provided Precautions Safety M7 PT-IP Assessment and Plan Start: 03/06/19 15:42 Freq: NEEDED Status: Active Protocol: Document 03/14/19 13:30 [facility] (Rec: 03/14/19 15:12 [facility] [id number]) PT Summary Assessment and Plan Summary Progress Towards Goals Slow Progress due to Pain Assessment Summary Pt continues to take increased time to perform all tasks. Pt c/o increased pain when bending legs to log roll, pt able to straighten legs then bend legs and was able to log roll SBA then sit on EOB SBA. Pt able to ambulate to platform step SBA. Pt required Min A x2 to climb one platform step with rest break at top of step then required Mod A x2 to descend one step. Pt c/o leg spasm and requested to lay down. Pt ambulated to bed, sat on EOB SBA and performed reverse log roll into bed SBA. Pt was left in supine with bed alarm on and all needs within reach. Goals Bed Mobility Goal Contact Guard Assistance Transfer Goal Contact Guard Assistance Front Wheeled Walker Gait Goal Contact Guard Assistance Front Wheel Walker Gait Distance 100 Days to Meet Goals 5 Treatment Plan Physical Therapy Treatment Plan Bed Mobility Training Transfer Training Gait Training Therapeutic Exercise Balance Retraining Post Op Education Discharge Planning Hot or Cold Pack Neuromuscular Re-ed Coordination Retraining Manual Therapy Recommendations To Nursing Amount of Assist Needed 1 Person Assist Discharge Recommendations PT Discharge Recommendations Home with Assistance Home Health SNF Rehab Equipment Needed for Home Before FWW if pt is going home, Discharge shower chair, raised toilet seat and bed rail.
--- NOTE | 2019-03-14 15:12 | PT.IPTN ---
Current Diagnoses Radiculopathy, lumbar region (03/05/19) Surgery Performed Operation Date: 03/09/19 07:45 Actual Procedures p L2-3, L3-4 TLIF, L3-4, L4-5 Hemilami - Carmita Mathias MD Physical Therapy Treatment Note M2 PT-IP Current Condition Start: 03/06/19 15:42 Freq: NEEDED Status: Active Protocol: Document 03/10/19 09:20 [facility] (Rec: 03/10/19 12:57 [facility] [id number]) Physical Therapy Current Condition Current Condition Evaluation Date 03/10/19 Treatment Diagnosis s/p L2-4 fusion/lami; L5S1 L microdiscectomy/hemilami; difficulty in walking Onset Date 03/05/19 Precautions Lumbar Precautions Log Roll No Twisting Limit Bending Lifting Restriction of 10 lbs Gait Belt above Incisional Area M3 PT-IP Subjective Start: 03/06/19 15:42 Freq: NEEDED Status: Active Protocol: Document 03/14/19 13:30 [facility] (Rec: 03/14/19 15:12 [facility] [id number]) Subjective Physical Therapy Visit Type Type Treatment Note Visit Start Time 13:30 Visit Stop Time 13:55 Total Visit Minutes 25 Number of COMPOSING MACHINE OPERATOR/TENDER Visits 6 Physical Therapy Visit Comments Patient Comments pt agreeable to trial platform stair climbing, pt states she can go to her sisters house and she can assist her, sister's home has one platform step then threshold to enter home. Therapy Pain Assessment Pain When Pain Assessed During Mobility Pain Present Pain Present Pain Reported M4 PT-IP Mobility and Gait Start: 03/06/19 15:42 Freq: NEEDED Status: Active Protocol: Document 03/14/19 13:30 [facility] (Rec: 03/14/19 15:12 [facility] [id number]) PT-Bed Mobility Assessment Rolling Type of Rolling Roll to Left Level of Assist Standby Assistance 1 Person Assistance Supine to Sit Supine to Sit Standby Assistance 1 Person Assistance Sit to Supine Sit to Supine Standby Assistance 1 Person Assistance Scooting Scooting to Edge of Bed Standby Assistance PT-Transfer Assessment Sit to and From Stand Sit to and from Stand Standby Assistance 1 Person Assistance Use of Upper Extremities Equipment Transfer Assistive Device Gait Belt Front Wheeled Walker Orthotic/Prosthetic Devices or Brace: No Transfers Transfer Destination Bed Transfer Ability Level of Assist Standby Assistance 1 Person Assistance Use of Upper Extremities Gait Assessment Gait Gait Assistance Required: Standby Assistance 1 Person Assist Distance (Feet) 5 Able to Maintain Weight Bearing Status Yes During Gait Assistive Devices Assistive Device Gait Belt Front Wheeled Walker Orthotic/Prosthetic Devices or Brace: No Gait Deviations General Gait Pattern Antalgic Decreased Stride Length Decreased Feet Clearance Factors Limiting Gait Function Factors Limiting Gait Function Decreased Activity Tolerance Decreased Strength Limited Range of Motion Pain Comments Gait Comments Pt ambulated to platform step in room only. Stair Climbing Assessment Evaluation Level of Assist On Stairs Minimal Assistance Moderate Assistance 2 Person Assistance Devices Stair Climbing Assistive Devices Front Wheel Walker Technique/Endurance Stair Climbing Direction Ascend and Descend Stair Climbing Technique Step to Step Number of Steps Climbed 1 Query Text: Stair Climbing Set # Repetitions (reps) 1 Comments Stair Climbing Comments Pt required Min A x2 to go up flatform step with step by step instructions and encouragement. Pt required rest break on platform step before stepping down from step requiring Mod A x2. M5 PT-IP Objective Assessments Start: 03/06/19 15:42 Freq: NEEDED Status: Active Protocol: Document 03/10/19 09:20 [facility] (Rec: 03/10/19 12:57 AB [id number]) Orientation Orientation/Cognition Level of Alertness Alert Orientation Name Age Place Situation Language Function Ability No Deficits Noted Safety Awareness Decreased Safety Awareness Gross Range of Motion Lower Extremity ROM Assessment Within Functional Limits Strength Lower Extremity Strength Assessment Bilaterally Impaired Comments Strength Comments LLE: 3-/5 RLE: 3+/5 Coordination Assessment Gross Coordination Gross Coordination WNL Sensation Assessment Sensation Light Touch Intact Proprioception (Position) Intact Comments Sensation Comments intact light touch and proprioception when tested but c/o numbness on LE Muscle Tone Muscle Tone WNL Yes M6 PT-IP Treatment Start: 03/06/19 15:42 Freq: NEEDED Status: Active Protocol: Document 03/11/19 12:59 [facility] (Rec: 03/11/19 14:24 AB [id number]) Physical Therapy Treatment Education Education Provided Precautions Safety M7 PT-IP Assessment and Plan Start: 03/06/19 15:42 Freq: NEEDED Status: Active Protocol: Document 03/14/19 13:30 [facility] (Rec: 03/14/19 15:12 [facility] [id number]) PT Summary Assessment and Plan Summary Progress Towards Goals Slow Progress due to Pain Assessment Summary Pt continues to take increased time to perform all tasks. Pt required Min-Mod A to climb one platform step. Goals Bed Mobility Goal Contact Guard Assistance Transfer Goal Contact Guard Assistance Front Wheeled Walker Gait Goal Contact Guard Assistance Front Wheel Walker Gait Distance 100 Days to Meet Goals 5 Treatment Plan Physical Therapy Treatment Plan Bed Mobility Training Transfer Training Gait Training Therapeutic Exercise Balance Retraining Post Op Education Discharge Planning Hot or Cold Pack Neuromuscular Re-ed Coordination Retraining Manual Therapy Recommendations To Nursing Amount of Assist Needed 1 Person Assist Discharge Recommendations PT Discharge Recommendations Home with Assistance Home Health SNF Rehab Equipment Needed for Home Before FWW if pt is going home, Discharge shower chair, raised toilet seat and bed rail.
[2019-03-14] MEDS: ACETAMINOPHEN 325 MG TABLET 650 MG PO (15:59)
--- NOTE | 2019-03-14 16:00 | PT.IPTN ---
Pt seen this afternoon from [id number] pt requested to see this WAGON DRIVER SALESPERSON at 1600. Pt stated she thinks she did something to her back and shouldn't have climbed the stair earlier and says she can't move now. Pt resting in bed on right side with ice on LB. Nursing is aware of her complaints.
--- NOTE | 2019-03-14 16:15 | CM.DPC ---
Addendum entered by Jovanna Oviedo LPN 03/14/19 17:12: Stopped back in as promised to see pt. She was already back in bed, now lying on her back, looking calm and relaxed. She said the medication had been very helpful and that she had successfully gone to the bathroom and back to bed with THROW OUT CLERK assist. She now explains that she has changed her plan to her sister's home so as to have some assistance when her sister, who works 9-5 at [employer] in the [employer] dept, is home from work. She was able to call the [employer] after being given a list of needed equipment by ZEV Kerns and her brother and a friend picked it up (they had all items) and it is at her sister home now. She asked about HH. Assured her that [facility] had accepted her and that RN/OR/PT and PLANNING ENGINEER were expected. Face/Face is signed by Dr. Mathias but needs to be completed and orders obtained. Demetria has confirmed that even though this is a Medicaid plan the HH agency will accept her case. Pt still expresses concern re how she will do but seems to be settling into the home setting idea. When she starts to feel anxious she says that she takes some deep breaths and tries to focus on relaxing. For the time fo this conversation she seems calmer and more at ease than she has reportedly been all day. Pt is aware of the SNF reconsideration but also that this is very far from being a viable option at this point. Congratulated her on the progress she made today toward her home setting plan. DCP team will follow. Addendum entered by Jovanna Oviedo LPN 03/14/19 16:45: Met again with pt and attempted to sit with her and have more of a discussion. She was lying in same position, said she had to use the bathroom and THROW OUT CLERK came in. Pt noted she was in so much pain she did not know if she could make to the bathroom. Agreed to come back for a check in after she toilets but due to lateness of hour will need to be brief. Discussed case with social insurance adviser Janet. She agreed that pt's mood seemed very labile and that a full mental health assessment seemed to be indicated. Due to lateness of hour this will have to be deferred until tomorrow. DCP team will be following in the morning. Original Note: DCP: continued: Case received again yesterday and have worked on a safe and appropriate d/c plan for pt for the last 2 days. Have been updated as the PT/OT sessions have unfolded and have discussed case with ortho ZINA Riley this morning. Dr. Fried yesterday stated that the hospitalist team had signed off and given case to orthopedics. ZINA Riley this morning planned to discuss this further with the orthopedic team as pt had initially been admitted by hosptalists and pt is having issues that she said were beyond scope of orthopedics. Rosemary reported in morning that she was instructing to pt continue to prepare a plan for the home setting and she wished PT and OT to also focus on this goal. She returned later in the day to say that pt was extremely agitated, anxious and tearful and wanted as social insurance adviser to assess her mental health and with consideration of a psychiatric evaluation. PT and OT did some co treating with pt and reported later in the day that she had been working now on a plan to go to her sister's home and that a friend was obtaining recommended equipment. Did talk with Diandra/[facility] liasion when she was here to assess another pt. She said [facility] to consider looking at a single case certificatin with [facility] Medicaid and that a case might be made for some PT with a forestry aide component and overall suuprt for pt's ADL needs until she is stable for home setting and more comfortable accepting this. This option has not yet been discuss with pt as it is very unclear if the option is viable: will know more by tomorrow. DCPlanner tomorrow to check in with Diandra re this. Stopped in earlier this afternoon to see pt. She was lying in bed, olivia nurse just coming on shift and in process of medicating her. Pt says are you kicking me out tomorrow.? Reminded her that her DCP team is there to advocate for her and help with a safe d/c plan: the physicians or their PA partners are the only ones who can order her d/c. Agreed to come back and see her after her pain medication has time to work.
--- NOTE | 2019-03-14 16:50 | CM.SWNOTE ---
SLOT OPERATIONS DIRECTOR Note: Received verbal referral from Ortho team for mental health evaluation. SLOT OPERATIONS DIRECTOR discussed with ALICIA/Jovanna Milian (see notes for details). Per materials planner, SNF attempt being made. Consult for SLOT OPERATIONS DIRECTOR specifically for mental health. Per Ortho team, patient's behavior has been uncharacteristic of patient age and diagnosis. [facility] staff report that patient is very emotional. During visits by medical team she has broke down in tears, unclear if this is untreated MH issue or ? Placed call to [facility] to determine is patient on services. They deny patient on any services current or in the past. SLOT OPERATIONS DIRECTOR unable to complete in-person MH today secondary to time constraints and caseload needs. Will refer to SLOT OPERATIONS DIRECTOR on 03-15-19 for follow up. P: SLOT OPERATIONS DIRECTOR to completed MH assessment prior to d/c. Anticipate that patient would benefit from resources for outpatient MH services through [facility]. ANALILIA Goode
[2019-03-14] MEDS: SENNOSIDES 8.6 MG TABLET 17.2 MG PO (20:25)
[2019-03-14 23:45] VITALS: BP 148/88; PULSE 83; RESP 20; TEMP 36.6; O2SAT 94
[2019-03-15] MEDS: hydrOXYzine pamoate 25 MG CAPSULE 50 MG PO ×4 (02:30→19:48)
[2019-03-15] MEDS: HYDROMORPHONE 2 MG TABLET 4 MG PO ×6 (02:30→19:56)
[2019-03-15] MEDS: ACETAMINOPHEN 325 MG TABLET 650 MG PO ×2 (02:45→19:52)
[2019-03-15 03:00] VITALS: BP 119/59; PULSE 72; RESP 18; TEMP 36.6; O2SAT 96
[2019-03-15] MEDS: diazePAM 5 MG TABLET PO ×3 (04:57→16:45)
[2019-03-15 05:07] VITALS: BP 110/72; PULSE 70
--- NOTE | 2019-03-15 05:08 | PC.NURSE ---
Pt is still having pain control issues and needs medications as ordered PRN to help keep control. Pt's dressing on her back is clean/dry/intact w/ a small amount of shadowing. Pt VSS, lung sounds clear bilaterally. CMS intact. May discharge today.
[2019-03-15 08:00] VITALS: BP 120/69; PULSE 73; RESP 16; TEMP 36.2; O2SAT 95
--- NOTE | 2019-03-15 08:04 | PM.PNPO.1 ---
Subjective Date Patient Seen: 03/15/19 Time Patient Seen: 08:04 Interval history: Patient states her pain is terrible. She states she can't move. Does not know when she will be able to go home. Exam Vital Signs (past 8 hours): - 03/15/19 03:00 03/15/19 05:07 Temperature 97.8 F Pulse Rate 72 70 Respiratory Rate 18 Blood Pressure 119/59 L 110/72 Pulse Oximetry 96 Fraction of Inspired Oxygen 24 Oxygen Delivery Method Room Air Oxygen Flow Rate 0 Narrative Exam Narrative: 43-year-old female resting on her right side in no apparent distress. patient is very tearful. Motor function is intact bilateral lower extremities. Sensation grossly intact to light touch bilateral lower extremities. Her dressing is clean dry and intact. Objective Labs Result Diagrams: 03/10/19 05:54 03/09/19 05:52 Assessment & Plan Post-op Postoperative Procedures Operation Date: 03/09/19 07:45 Actual Procedures Side Surgeon p L2-3, L3-4 TLIF, L3-4, L4-5 Hemilami Carmita Mathias MD Postop day 6. Status post L2 through L4 TLIF, L5-S1 micro diskectomy. Mobilize with physical therapy. Discharge home when medically stable. Quality VTE Deep Vein Thrombosis/Pulmonary Embolism Present on Admission: No
[2019-03-15] MEDS: GABAPENTIN 300 MG CAPSULE PO ×3 (09:00→19:51)
[2019-03-15] MEDS: DOCUSATE 100 MG CAPSULE PO ×2 (09:00→19:51)
[2019-03-15] MEDS: buPROPion 75 MG TABLET PO ×2 (09:00→19:51)
--- NOTE | 2019-03-15 09:15 | CM.SWNOTE ---
Reviewed chart, spoke w/ LIAM Wood about EXTERMINATOR TERMITE consult request. Although pt has been emotionally labile in room, tearful and, per notes, overwhelmed by current/chronic pain and medical complications; EXTERMINATOR TERMITE consult and goals of consult are unclear at this time. Outpt MH resources would be helpful for this young woman, but this can be done by the Home Health EXTERMINATOR TERMITE that LIAM Wood has requested through [facility] . Pt has been started on Welbutrin and this can be managed by Dr Hough at the [facility] in [place]. Nina indicates that pt will return home w/ [facility], likely w/in 24-48 hrs, mom to assist. Nina confident that pt's outpt needs can be addressed by home health team. ANALILIA Killian
--- NOTE | 2019-03-15 09:59 | OT.IP.TRT ---
Current Diagnoses Radiculopathy, lumbar region (03/05/19) Surgery Performed Operation Date: 03/09/19 07:45 Actual Procedures p L2-3, L3-4 TLIF, L3-4, L4-5 Tom Mathias MD Occupational Therapy Treatment Note M2 OT-IP Current Condition Start: 03/07/19 14:41 Freq: Status: Active Protocol: Document 03/10/19 09:50 CCC (Rec: 03/10/19 13:23 CCC [id number]) Occupational Therapy Current Condition Current Condition Evaluation Date 03/10/19 Treatment Diagnosis Spinal Stenosis Diagnosis Onset Date 03/05/19 Post Operative Precautions Lumbar Precautions Log Roll No Twisting Limit Bending Lifting Restriction of 10 lbs Gait Belt above Incisional Area Weight Bearing Status Weight Bearing Status Weight Bear as Tolerated M3 OT- IP Subjective and Pain Start: 03/07/19 14:41 Freq: Status: Active Protocol: Document 03/15/19 09:59 PJM (Rec: 03/15/19 15:35 PJM [id number]) OT- Subjective Occupational Therapy Visit Type Type Treatment Note Visit Start Time 09:34 Visit Stop Time 09:59 Total Visit Minutes 25 Notes Pt's mother here this session. Mother requires much repetition of information re: bathroom safety equipt options and what equipt would best fit pt's needs. Pt's mother very protective of pt and asking therapist to assist pt more than necessary with mobility due to pt's high pain level. Mother distracting pt at times with tangential information. Occupational Therapy Visit Comments Patient Comments I can't do any of this. Patient/Caregiver Goals to have less pain OT Pain Assessment Pain When Pain Assessed After Treatment Pain Present Pain Present Pain Reported Location Lower Back Intensity 10 Scale Used Numeric (1 - 10) Description Aching Acute M4 OT- IP ADL's Start: 03/07/19 14:41 Freq: Status: Active Protocol: Document 03/15/19 09:59 PJM (Rec: 03/15/19 15:35 PJM [id number]) OT [id number] Comments OT Self-Feeding Comments pt declining breakfast tray at this time; pt has been eating in bed due to inability to tolerate sitting in chair OT ADL-Grooming Comments OT Grooming Comments pt declines any grooming tasks this session OT ADL-Dressing General Eval Lower Body Dressing Ability Total Assistance OT ADL-Toileting General Evaluation Toileting Ability Total Assistance Areas Needing Assistance Manage Clothing Perform Perineal Hygiene Devices Toileting Assistive Devices Commode Comments OT Toileting Comments Pt on bedside commode when therapist arrived. She was SBA for sit to stand from commode with FWW. Pt states she cannot take hands off FWW to even attempt pericare or clothing management. Mother states she is trying to obtain bedside commode for pt use, but has concerns about weight capacity of commode obtained by another family member from [employer]. Pt's current weight in chart is 280#. OT ADL-Bathing Comments OT Bathing Comments pt declines shower today due to high pain level M6 OT- IP Functional Cognition Start: 03/07/19 14:41 Freq: Status: Active Protocol: Document 03/15/19 09:59 PJM (Rec: 03/15/19 15:35 PJM [id number]) Cognitive Factors Limiting Selfcare Function Cognitive Ability Level of Alertness Alert Cognitive Comments Cognitive Assessment Comments Pt recognizes this therapist from previous session prior to surgery. She presents with very flat affect today, staring into space with no eye contact with therapist this session. Pt tearful at end of session M7 OT- IP Mobility and Balance Start: 03/07/19 14:41 Freq: Status: Active Protocol: Document 03/15/19 09:59 PJM (Rec: 03/15/19 15:35 PJM [id number]) OT- Bed Mobility Assessment Rolling Type of Rolling Roll to Left Level of Assistance Standby Assistance Sit to Supine Sit to Supine Assist Contact Guard Assistance Scooting Scooting to Edge of Bed Standby Assistance OT-Transfer Assessment Sit to and From Stand Sit to and from Stand Contact Guard Assistance Transfers Transfer Ability Standby Assistance Technique Transfer Destination Bed Transfer Technique Stand Step Pivot Devices Transfer Assistive Devices Gait Belt Front Wheeled Walker Comments Mobility Comments Pt tends to be impulsive when moving from edge of bed to side lying to supine with poor final alignment noted in bed. Pt needs verbal cues to align legs in bed. Pt able to abduct RLE with CGA, but actively resisting therapist when attempting to adduct LLE to improve body alignment in bed. OT- Balance Assessment Sitting Balance and Reactions Static Sitting Balance Ability Good Standing Balance and Reactions Static Standing Balance Ability Fair Comments Other Balance Tests/Deviations/Treatment Pt declining to take either : hand off FWW for functional activities such as reji care or clothing management after toileting. M9 OT- IP Assessment and Plan Start: 03/07/19 14:41 Freq: Status: Active Protocol: Document 03/15/19 09:59 PJM (Rec: 03/15/19 15:35 PJM [id number]) OT Summary Assessment and Plan Summary OT Impairments Pain Balance Functional Mobility Dressing Toileting Bathing Toilet Transfers Shower Transfers Progress Towards Goals Slow Progress due to Pain Slow Progress due to Activity Tolerance Assessment Summary Pt's high pain level and decreased coping strategies continue to hinder progress with self care and functional mobility. Pt's mother here today. Mother appears very anxious and wants to restrict pt's participation in functional mobility and self care tasks due to pt's high pain level. Mother requires repetition of information re: recommended home equipt needs. Pt's sister not here for education this session. Will continue OT tx to increase independence and safety in basic self care. Pt would benefit from rehab at SNF with emphasis on coping strategies if funding can be obtained vs home with working sister and HH OT/PT/RN/WEEDER. Goals Self-Feeding Goal Independent Grooming Goal Independent Dressing Goal Independent Long Handled Shoe Horn Snuff Grinder And Screener Sock Aid Toileting Goal Independent Bathing Goal Standby Assistance Toilet Transfer Goal Independent Shower Transfer Goal Standby Assistance Patient/Caregiver Education Goal Demonstrate Post-Op Precautions Demonstrate Energy Conservation and Pacing Caregiver Independent Assisting Patient OT-Other Goals Goals above for going home / friend's house. Days to Meet Goals 5 Frequency of Treatment Frequency Of Treatment Once a Day Treatment Plan OT Treatment Plan ADL Training Functional Mobility Patient/Family Education Discharge Planning Discharge Recommendations OT Discharge Recommendations Home with Assistance Home Health SNF Rehab Home Equipment Needs raised toilet seat versus BSC, shower chair, FWW, toilet aid , bed rail
--- NOTE | 2019-03-15 11:05 | PT.IIE ---
Current Diagnoses Radiculopathy, lumbar region (03/05/19) Surgery Performed Operation Date: 03/09/19 07:45 Actual Procedures p L2-3, L3-4 TLIF, L3-4, L4-5 Hemilami - Carmita Mathias MD Surgical History (Last Updated 03/06/19 @ 01:10 by TAYLOR Sigala) History of cervical spinal surgery (Chronic) Status post laminectomy Medical History (Last Updated 03/06/19 @ 01:10 by TAYLOR Sigala) Situational depression (Acute) Abnormal vaginal Pap smear (Chronic) Morbid obesity (Chronic) Back pain (Chronic) Physical Therapy Inpatient Evaluation/Re-Eval M1 PT/OT-IP Prior Functional Status Start: 03/06/19 15:42 Freq: NEEDED Status: Active Protocol: Document 03/10/19 09:50 [facility] (Rec: 03/10/19 13:23 [facility] [id number]) Medical Review Prior Functional Status Medical History Reviewed Yes Diet/Fluid Consistency Regular Communication able to make needs known Mobility and Gait pt stated that she is indpeendent with all mobilities and ambulation without AD Activities of Daily Living and IADL's Pt independent with all self care, IADLS prior to onset of severe back pain. 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 Social History Household Members friend(s) Living Arrangements House Number of Floors (Floors) One Floor Number of Stairs To Enter/Railing? pt plans to stay at her friend 's house: info is regarding her friend's house Home Environment Standard Height Toilet Walk in Shower Home Equipment Four Wheel Walker Straight Cane Hand Held Shower Additional Social History Comment full flight of stairs to access kitchen on upper level; roommate she lives w/cannot give her much help; pt may try to stay with friend in more accessible mother in law suite at d/c M2 PT-IP Current Condition Start: 03/06/19 15:42 Freq: NEEDED Status: Active Protocol: Document 03/10/19 09:20 AB (Rec: 03/10/19 12:57 AB [id number]) Physical Therapy Current Condition Current Condition Evaluation Date 03/10/19 Treatment Diagnosis s/p L2-4 fusion/lami; L5S1 L microdiscectomy/hemilami; difficulty in walking Onset Date 03/05/19 Precautions Lumbar Precautions Log Roll No Twisting Limit Bending Lifting Restriction of 10 lbs Gait Belt above Incisional Area M3 PT-IP Subjective Start: 03/06/19 15:42 Freq: NEEDED Status: Active Protocol: Document 03/14/19 13:30 CLB (Rec: 03/14/19 15:12 CLB [id number]) Subjective Physical Therapy Visit Type Type Treatment Note Visit Start Time 13:30 Visit Stop Time 13:55 Total Visit Minutes 25 Number of MAGNETIC HEALER Visits 6 Physical Therapy Visit Comments Patient Comments pt agreeable to trial platform stair climbing Therapy Pain Assessment Pain When Pain Assessed During Mobility Pain Present Pain Present Pain Reported M4 PT-IP Mobility and Gait Start: 03/06/19 15:42 Freq: NEEDED Status: Active Protocol: Document 03/14/19 13:30 CLB (Rec: 03/14/19 15:12 CLB [id number]) PT-Bed Mobility Assessment Rolling Type of Rolling Roll to Left Level of Assist Standby Assistance 1 Person Assistance Supine to Sit Supine to Sit Standby Assistance 1 Person Assistance Sit to Supine Sit to Supine Standby Assistance 1 Person Assistance Scooting Scooting to Edge of Bed Standby Assistance PT-Transfer Assessment Sit to and From Stand Sit to and from Stand Standby Assistance 1 Person Assistance Use of Upper Extremities Equipment Transfer Assistive Device Gait Belt Front Wheeled Walker Orthotic/Prosthetic Devices or Brace: No Transfers Transfer Destination Bed Transfer Ability Level of Assist Standby Assistance 1 Person Assistance Use of Upper Extremities Gait Assessment Gait Gait Assistance Required: Standby Assistance 1 Person Assist Distance (Feet) 5 Able to Maintain Weight Bearing Status Yes During Gait Assistive Devices Assistive Device Gait Belt Front Wheeled Walker Orthotic/Prosthetic Devices or Brace: No Gait Deviations General Gait Pattern Antalgic Decreased Stride Length Decreased Feet Clearance Factors Limiting Gait Function Factors Limiting Gait Function Decreased Activity Tolerance Decreased Strength Limited Range of Motion Pain Comments Gait Comments Pt ambulated to platform step in room only. Stair Climbing Assessment Evaluation Level of Assist On Stairs Minimal Assistance Moderate Assistance 2 Person Assistance Devices Stair Climbing Assistive Devices Front Wheel Walker Technique/Endurance Stair Climbing Direction Ascend and Descend Stair Climbing Technique Step to Step Number of Steps Climbed 1 Query Text: Stair Climbing Set # Repetitions (reps) 1 Comments Stair Climbing Comments Pt required Min A x2 to go up flatform step with step by step instructions and encouragement. Pt required rest break on platform step before stepping down from step requiring Mod A x2. M5 PT-IP Objective Assessments Start: 03/06/19 15:42 Freq: NEEDED Status: Active Protocol: Document 03/10/19 09:20 AB (Rec: 03/10/19 12:57 AB [id number]) Orientation Orientation/Cognition Level of Alertness Alert Orientation Name Age Place Situation Language Function Ability No Deficits Noted Safety Awareness Decreased Safety Awareness Gross Range of Motion Lower Extremity ROM Assessment Within Functional Limits Strength Lower Extremity Strength Assessment Bilaterally Impaired Comments Strength Comments LLE: 3-/5 RLE: 3+/5 Coordination Assessment Gross Coordination Gross Coordination WNL Sensation Assessment Sensation Light Touch Intact Proprioception (Position) Intact Comments Sensation Comments intact light touch and proprioception when tested but c/o numbness on LE Muscle Tone Muscle Tone WNL Yes M6 PT-IP Treatment Start: 03/06/19 15:42 Freq: NEEDED Status: Active Protocol: Document 03/11/19 12:59 AB (Rec: 03/11/19 14:24 AB [id number]) Physical Therapy Treatment Education Education Provided Precautions Safety M7 PT-IP Assessment and Plan Start: 03/06/19 15:42 Freq: NEEDED Status: Active Protocol: Document 03/14/19 13:30 CLB (Rec: 03/14/19 15:12 CLB [id number]) PT Summary Assessment and Plan Summary Progress Towards Goals Slow Progress due to Pain Assessment Summary Pt continues to take increased time to perform all tasks. Pt c/o increased pain when bending legs to log roll, pt able to straighten legs then bend legs and was able to log roll SBA then sit on EOB SBA. Pt able to ambulate to platform step SBA. Pt required Min A x2 to climb one platform step with rest break at top of step then required Mod A x2 to descend one step. Pt c/o leg spasm and requested to lay down. Pt ambulated to bed, sat on EOB SBA and performed reverse log roll into bed SBA. Pt was left in supine with bed alarm on and all needs within reach. Goals Bed Mobility Goal Contact Guard Assistance Transfer Goal Contact Guard Assistance Front Wheeled Walker Gait Goal Contact Guard Assistance Front Wheel Walker Gait Distance 100 Days to Meet Goals 5 Treatment Plan Physical Therapy Treatment Plan Bed Mobility Training Transfer Training Gait Training Therapeutic Exercise Balance Retraining Post Op Education Discharge Planning Hot or Cold Pack Neuromuscular Re-ed Coordination Retraining Manual Therapy Recommendations To Nursing Amount of Assist Needed 1 Person Assist Discharge Recommendations PT Discharge Recommendations Home with Assistance Home Health SNF Rehab Equipment Needed for Home Before FWW if pt is going home, Discharge shower chair, raised toilet seat and bed rail.
--- NOTE | 2019-03-15 11:22 | PT.IPTN ---
Current Diagnoses Radiculopathy, lumbar region (03/05/19) Surgery Performed Operation Date: 03/09/19 07:45 Actual Procedures p L2-3, L3-4 TLIF, L3-4, L4-5 Hemilami - Carmita Mathias MD Physical Therapy Treatment Note M2 PT-IP Current Condition Start: 03/06/19 15:42 Freq: NEEDED Status: Active Protocol: Document 03/10/19 09:20 AB (Rec: 03/10/19 12:57 AB [id number]) Physical Therapy Current Condition Current Condition Evaluation Date 03/10/19 Treatment Diagnosis s/p L2-4 fusion/lami; L5S1 L microdiscectomy/hemilami; difficulty in walking Onset Date 03/05/19 Precautions Lumbar Precautions Log Roll No Twisting Limit Bending Lifting Restriction of 10 lbs Gait Belt above Incisional Area M3 PT-IP Subjective Start: 03/06/19 15:42 Freq: NEEDED Status: Active Protocol: Document 03/15/19 10:58 SA (Rec: 03/15/19 11:21 SA [id number]) Subjective Physical Therapy Visit Type Type Treatment Note Visit Start Time 10:28 Visit Stop Time 10:53 Total Visit Minutes 25 Notes Pt's mother present for treatment. Number of GREEN BUILDING MATERIALS DISTRIBUTOR Visits 7 Physical Therapy Visit Comments Patient Comments Pt agreeable to getting OOB. Therapy Pain Assessment Pain When Pain Assessed During Mobility Pain Present Pain Present Pain Reported Location Lower Back Pain Behaviors Calling Out Facial Grimacing Guarding Wincing Pain Management Techniques Apply Cold Re-positioning Timing of Activity with Medications M4 PT-IP Mobility and Gait Start: 03/06/19 15:42 Freq: NEEDED Status: Active Protocol: Document 03/15/19 10:58 SA (Rec: 03/15/19 11:21 SA [id number]) PT-Bed Mobility Assessment Rolling Type of Rolling Log Rolling Roll to Left Level of Assist Standby Assistance 1 Person Assistance Supine to Sit Supine to Sit Standby Assistance 1 Person Assistance Sit to Supine Sit to Supine Standby Assistance 1 Person Assistance PT-Transfer Assessment Sit to and From Stand Sit to and from Stand Standby Assistance 1 Person Assistance Use of Upper Extremities Equipment Transfer Assistive Device Gait Belt Front Wheeled Walker Orthotic/Prosthetic Devices or Brace: No Transfers Transfer Destination Bed Transfer Technique Stand Step Pivot Transfer Ability Level of Assist Contact Guard Assistance 1 Person Assistance Use of Upper Extremities Comments Mobility Comments Pt very pain focused, increased time required to perform all mobility tasks, although pt SBA-CGA with mobility. Mom present and frequently distracts patient from task with focus on her pain and what she cannot do. Gait Assessment Gait Gait Assistance Required: Contact Guard Assist 1 Person Assist Distance (Feet) 5 Able to Maintain Weight Bearing Status Yes During Gait Assistive Devices Assistive Device Gait Belt Front Wheeled Walker Orthotic/Prosthetic Devices or Brace: No Gait Deviations General Gait Pattern Antalgic Decreased Stride Length Decreased Feet Clearance Factors Limiting Gait Function Factors Limiting Gait Function Decreased Activity Tolerance Decreased Strength Limited Range of Motion Pain Comments Gait Comments Pt ambulated 5 feet forward and 5 backward with chair follow to decrease anxiety. Pt with increased LE pain with ambulation and very slow and guarded movements. Cues for breathing and weight shifting provided. Pt with significant pain behaviors limiting activity. M5 PT-IP Objective Assessments Start: 03/06/19 15:42 Freq: NEEDED Status: Active Protocol: Document 03/10/19 09:20 AB (Rec: 03/10/19 12:57 AB [id number]) Orientation Orientation/Cognition Level of Alertness Alert Orientation Name Age Place Situation Language Function Ability No Deficits Noted Safety Awareness Decreased Safety Awareness Gross Range of Motion Lower Extremity ROM Assessment Within Functional Limits Strength Lower Extremity Strength Assessment Bilaterally Impaired Comments Strength Comments LLE: 3-/5 RLE: 3+/5 Coordination Assessment Gross Coordination Gross Coordination WNL Sensation Assessment Sensation Light Touch Intact Proprioception (Position) Intact Comments Sensation Comments intact light touch and proprioception when tested but c/o numbness on LE Muscle Tone Muscle Tone WNL Yes M6 PT-IP Treatment Start: 03/06/19 15:42 Freq: NEEDED Status: Active Protocol: Document 03/15/19 11:21 SA (Rec: 03/15/19 11:22 SA [id number]) Physical Therapy Treatment Education Education Provided Precautions Safety Other Treatments Other Treatment Performed Pt requries encouragement to mobilize. M7 PT-IP Assessment and Plan Start: 03/06/19 15:42 Freq: NEEDED Status: Active Protocol: Document 03/15/19 10:58 SA (Rec: 03/15/19 11:21 SA [id number]) PT Summary Assessment and Plan Summary Progress Towards Goals Slow Progress due to Pain Assessment Summary Pt continues to be pain focused and emotional and needs increased time for mobility. Max cues for bed mobility as pt will lie down flat and not position herself in bed correctly, although she is capable of doing so with SBA. Pt needs cues for all initiation and completion of mobility tasks. Would recommend future treatments with out mother present as she tends to steer patient to focus on negative and encourages limitation of mobility. Frequency of Treatment Frequency Of Treatment Twice a Day Treatment Plan Physical Therapy Treatment Plan Bed Mobility Training Transfer Training Gait Training Therapeutic Exercise Balance Retraining Post Op Education Discharge Planning Hot or Cold Pack Neuromuscular Re-ed Coordination Retraining Manual Therapy Recommendations To Nursing Amount of Assist Needed 2 Person Assist Discharge Recommendations PT Discharge Recommendations Home with Assistance Home Health SNF Rehab Equipment Needed for Home Before Recommending 2 person assist Discharge with mobility for caregiver protection d/t pt behaviors.
--- NOTE | 2019-03-15 11:37 | CM.DPC ---
DCP Cont: Met with patient's mother, Mounika. She had been on the phone with [facility], and gave her phone to this rn case manager hospice. She stated, she has worked with them before, and would like to have [facility] instead of [facility]. She had mentioned a physical therapist who she really liked, named Ganesh. Confirmed with [facility] that Ganesh is a drafter geophysical that does work there. Agreed with patient's mom that all disciplines would be helpful, P.T/O.T, but also nursing, and SECURITIES ATTORNEY visit as well. [facility] confirmed that they do accept her insurance. Faxed over clinical notes to them. Face to face is available. Confirmed that patient will be staying at her sister's home. Her mom lives close as well. According to notes, patient has had equipment delivered to her sister's home from [facility]. P: DCP to continue to follow closely. At this time, the plan is for patient to be discharged with [facility] services, with nursing, bath aide, SECURITIES ATTORNEY, physical and occupational therapy. Will need to obtain sister's address to be able to instruct [facility] on location. At this time, patient will continue to work with physical therapy team. Helene Juárez RN/Special Order Jeweler
[2019-03-15 11:57] VITALS: BP 139/84; PULSE 90; RESP 15; TEMP 36.9; O2SAT 93
--- NOTE | 2019-03-15 13:17 | PC.NURSE ---
1300 removed old surg drsg as was peeling off, applied a coversite. Inc is C,D,dio intact. Pt fransisca well. friends at bedside, Pt offers no complaints. Has been getting po pain meds as prescribed.
--- NOTE | 2019-03-15 14:38 | PT.IPTN ---
Current Diagnoses Radiculopathy, lumbar region (03/05/19) Surgery Performed Operation Date: 03/09/19 07:45 Actual Procedures p L2-3, L3-4 TLIF, L3-4, L4-5 Hemilami - Carmita Mathias MD Physical Therapy Treatment Note M2 PT-IP Current Condition Start: 03/06/19 15:42 Freq: NEEDED Status: Active Protocol: Document 03/10/19 09:20 AB (Rec: 03/10/19 12:57 AB [id number]) Physical Therapy Current Condition Current Condition Evaluation Date 03/10/19 Treatment Diagnosis s/p L2-4 fusion/lami; L5S1 L microdiscectomy/hemilami; difficulty in walking Onset Date 03/05/19 Precautions Lumbar Precautions Log Roll No Twisting Limit Bending Lifting Restriction of 10 lbs Gait Belt above Incisional Area M3 PT-IP Subjective Start: 03/06/19 15:42 Freq: NEEDED Status: Active Protocol: Document 03/15/19 14:30 SA (Rec: 03/15/19 14:37 SA [id number]) Subjective Physical Therapy Visit Type Type Treatment Note Visit Start Time 14:10 Visit Stop Time 14:27 Total Visit Minutes 17 Notes Pt's mother present for treatment. Number of WELDER FITTER ARC Visits 8 Physical Therapy Visit Comments Patient Comments Pt agreeable to getting OOB. 2nd WELDER FITTER ARC present for treatment. Therapy Pain Assessment Pain When Pain Assessed During Mobility Pain Present Pain Present Pain Reported Location Lower Back Pain Behaviors Calling Out Facial Grimacing Guarding Wincing Pain Management Techniques Apply Cold Re-positioning Timing of Activity with Medications M4 PT-IP Mobility and Gait Start: 03/06/19 15:42 Freq: NEEDED Status: Active Protocol: Document 03/15/19 14:30 SA (Rec: 03/15/19 14:37 SA [id number]) PT-Bed Mobility Assessment Rolling Type of Rolling Log Rolling Roll to Left Level of Assist Standby Assistance 1 Person Assistance Supine to Sit Supine to Sit Standby Assistance 1 Person Assistance Sit to Supine Sit to Supine Standby Assistance 1 Person Assistance Scooting Scooting to Edge of Bed Standby Assistance PT-Transfer Assessment Sit to and From Stand Sit to and from Stand Standby Assistance 1 Person Assistance Use of Upper Extremities Equipment Transfer Assistive Device Gait Belt Front Wheeled Walker Orthotic/Prosthetic Devices or Brace: No Transfers Transfer Destination Bed Transfer Technique Stand Step Pivot Transfer Ability Level of Assist Contact Guard Assistance 1 Person Assistance Use of Upper Extremities Comments Mobility Comments Pt SBA with bed mobility and SBA-CGA with transfers. Improved focus on tasks this afternoon and less pain focus. Gait Assessment Gait Gait Assistance Required: Contact Guard Assist 1 Person Assist Distance (Feet) 8 Able to Maintain Weight Bearing Status Yes During Gait Assistive Devices Assistive Device Gait Belt Front Wheeled Walker Orthotic/Prosthetic Devices or Brace: No Gait Deviations General Gait Pattern Antalgic Decreased Stride Length Decreased Feet Clearance Factors Limiting Gait Function Factors Limiting Gait Function Decreased Activity Tolerance Decreased Strength Limited Range of Motion Pain Comments Gait Comments Pt still very gaurded and slow with gait but able to complete turn and finish walk rather than back up. Side stepping at EOB with SBA. Stair Climbing Assessment Comments Stair Climbing Comments Did not attempt M5 PT-IP Objective Assessments Start: 03/06/19 15:42 Freq: NEEDED Status: Active Protocol: Document 03/10/19 09:20 AB (Rec: 03/10/19 12:57 AB [id number]) Orientation Orientation/Cognition Level of Alertness Alert Orientation Name Age Place Situation Language Function Ability No Deficits Noted Safety Awareness Decreased Safety Awareness Gross Range of Motion Lower Extremity ROM Assessment Within Functional Limits Strength Lower Extremity Strength Assessment Bilaterally Impaired Comments Strength Comments LLE: 3-/5 RLE: 3+/5 Coordination Assessment Gross Coordination Gross Coordination WNL Sensation Assessment Sensation Light Touch Intact Proprioception (Position) Intact Comments Sensation Comments intact light touch and proprioception when tested but c/o numbness on LE Muscle Tone Muscle Tone WNL Yes M6 PT-IP Treatment Start: 03/06/19 15:42 Freq: NEEDED Status: Active Protocol: Document 03/15/19 14:30 SA (Rec: 03/15/19 14:37 SA [id number]) Physical Therapy Treatment Education Education Provided Precautions Safety Other Treatments Other Treatment Performed Pt requries encouragement to mobilize. M7 PT-IP Assessment and Plan Start: 03/06/19 15:42 Freq: NEEDED Status: Active Protocol: Document 03/15/19 14:30 SA (Rec: 03/15/19 14:37 SA [id number]) PT Summary Assessment and Plan Summary Progress Towards Goals Slow Progress due to Pain Assessment Summary Pt states her pain levels are about the same, notes R LLE and back pain are equally painful. Pain continues to be limiting factor for increased activity. Frequency of Treatment Frequency Of Treatment Twice a Day Treatment Plan Physical Therapy Treatment Plan Bed Mobility Training Transfer Training Gait Training Therapeutic Exercise Balance Retraining Post Op Education Discharge Planning Hot or Cold Pack Neuromuscular Re-ed Coordination Retraining Manual Therapy Recommendations To Nursing Amount of Assist Needed 2 Person Assist Discharge Recommendations PT Discharge Recommendations Home with Assistance Home Health SNF Rehab
[2019-03-15 15:41] VITALS: BP 131/78; PULSE 92; RESP 18; TEMP 36.5; O2SAT 92
--- NOTE | 2019-03-15 17:02 | PC.NURSE ---
Addendum entered by Marianne Christianson R.N. 03/15/19 22:47: 2030: This residential mortgage underwriter was administering meds in room 215 and was summoned to room 216 by roni RN, Kely. Upon entering pt's room, noted pt to be pale in color, skin clammy to touch with snoring respirations. Eyes closed. Unresponsive to verbal or tactile stimuli. Unresponsive to sternal rub. Kely reports pt had call light on and spoke single word when Kely entered pt's room moments before. Rapid Response immediately called. As this patient had no iv access, multiple nurses attempted to start line to administer narcan to patient. Blood return verified with iv start by Feliciano. Attempted to administered 0.4 mg narcan, but vein blew. R.T. present to manage pt's airway. Dr. Do and multiple E.R. staff and FIELD PIPELINES SUPERVISOR present as well as hospitalist TAYLOR Conner, code team members as well as supervisor dry paste, Judy. Intranasal narcan administered by E.R. staff. Pt found to be without pulse by E.R. staff and Jh Mcclendon called. CPR immediately begun. IO access obtained by E.R. staff and narcan again given as well as code drugs administered as per Dr. Do's orders and per code sheet as recorded by LIAM Edge. Intubation by Dr. Do, pharmacist present to manage drugs. Dr. Moody notified by this residential mortgage underwriter via telephone of these events. Pt's mother now approaching pt's room down hallway. Mother was met by this residential mortgage underwriter and events were explained. Cleaning And Maintenance Worker visit offered. Resuscitation efforts continue as per Dr. Do without any return of cardiac activity. Time of pronounced by Dr. Do @ 2115. Dr. Do sat with pt's mother to explain events and outcome. Other family members now arrive and were taken to quiet visiting area. Cleaning And Maintenance Worker visit offered once again to other family members. Dr. Moody informed of outcome of Code Blue. Family takes pt's silver colored ring home and other belongings in pt's room. Other valuables gathered for family by LIAM Wiggins and LIAM Edge. and placed in hospital safe by [facility] supervisor dry paste, Michelle. All invasive equipment used in code kept in place pending further instruction via supervisor dry paste. [facility] is family stated choice for remains. Saddle Stitching Machine Operator, Judy, made aware and family reports have said final goodbye's and leave the hospital. Addendum entered by Marianne Christianson R.N. 03/15/19 20:01: Pt summons staff to report woke up with spasms. Pt is calling out loud and lying totally still in bed. Utilizes deep breathing to aid in relaxation. Gave hs meds early to treat pt's c/o pain as pt reports needs to get out of bed to use commode shortly. Agreeable to wearing BL foot pumps. No interest in eating. Pt's mother is present, attentive and willing to aid patient in any manner. Has multiple ice packs available to treat pain/spasms. Plan to allow for uninterrupted rest once pt toilets and is settled back into bed. Original Note: Pt's mother in hallway asking multiple questions and making requests of staff. Entered pt's room and pt does not endorse these requests/questions. Pt is calmly lying in bed after having gotten up to commode with assistance. Reports baseline numbness to extremities and states this is unchanged s/p surgery. Equally warm and pink extremities. Pt is able to move own extremities and states desires to attempt to sit up to eat dinner. Given hydromorphone and valium as pt explains having spasms with any movement. Plan to assess dressing when up to commode.
[2019-03-15] MEDS: SENNOSIDES 8.6 MG TABLET 17.2 MG PO (19:51)
[2019-03-15 19:52] VITALS: BP 143/82; PULSE 92; RESP 18; TEMP 36; O2SAT 95
[2019-03-15 21:05] LABS: Add Manual Diff / Slide Review NO; Basophils Absolute Auto 100 /uL (0-100); Basophils Percent Auto 0.8 % (0-2); Eosinophils Absolute Auto 100 /uL (0-450); Hematocrit 44.1 % (36-46); Hemoglobin 14.3 g/dL (12.0-16.0); Lymphocytes Absolute Auto 4300 /uL (1100-4500); Lymphocytes Percent Auto 40.3 % (25-40); Mean Corpuscular HGB Conc 32.3 % (30-36); Mean Corpuscular Hemoglobin 30.3 PG (26-34); Mean Corpuscular Volume 93.7 fL (80-100); Monocytes Absolute Auto 900 /uL (0-900); Monocytes Percent Auto 8.4 % (3-14); Neutrophils Absolute Auto 5300 /uL (1500-7000); Neutrophils Percent Auto 49.5 % (50-75); Platelet Count 232 X10^3/uL (150-400); Red Blood Cell Count 4.71 X10^6/uL (4.0-5.2); Red Cell Distribution Width 15.1 % (11.6-14.8); White Blood Cell Count 10.7 X10^3/uL (4.5-11.0)
[2019-03-15 21:12] LABS: BUN Creatinine Ratio 10.8 (6-22); Blood Urea Nitrogen 13 mg/dL (7-17); Calcium 9.2 mg/dL (8.4-10.2); Carbon Dioxide 20 mmol/L (22-32); Chloride 101 mmol/L (98-107); Estimated Glomerular Filt Rate 49.5 mL/min (>60); Glucose 191 mg/dL (70-100); HEMOLYSIS < 15 (0-50); Magnesium 2.8 mg/dL (1.6-2.3); Potassium 3.8 mmol/L (3.4-5.1); Sodium 141 mmol/L (137-145)
[2019-03-15 21:24] LABS: Troponin I < 0.012 ng/mL (0.01-0.034)
--- NOTE | 2019-03-15 21:47 | PC.NURSE ---
staff assist/rapid response/code blue 2024 This RN arrived to room 216 as pts call light was signaling. pt appeared to be sleeping and call light located under patient's right side. Spoke pt's name and pt did not respond, this RN said her name again again without pt responding. respirations were deep and equal. sternal rub and pt aroused with eyes wide open what and then closed eyes again with continued resp rate and pattern as before. VS taken with BP 90s'/40s and HR low 100. O2 98% RA. Coordinator Brigida walking by room and called in by this RN. Staff assist called with primary RN quickly to bedside. Rapid response called overhead by this RN. Narcan obtained with staff in the room attempting IV start. This RN went back in med room to obtain 2nd vial of narcan and hear CODE BlUE page overhead at 2034. This RN back at bedside to assist with/record code.
--- NOTE | 2019-03-15 21:48 | PM.EVENT ---
Date Patient Seen: 03/15/19 Patient seen at 2029 63 Year old female postoperative day 6 status post lumbar laminectomy L2-S1. Hospitalist service was initially the primary, with orthopedic surgery consulting. We were guiding her pain management as well as diabetes. Orthopedic surgery had requested that we sign off on her on March 09. She was seen on March 13 as well. MAXILLOFACIAL PATHOLOGY was called at 2029 as the patient had just been administered pain medications and then became nonresponsive. I went into the room she was responsive to a sharp sternal rub, and by raising the head of the bed, she would open her eyes and then close her eyes again. Narcan was ordered, but due to no access, one dose was administered subcutaneously through was later found to be a failed IV, a second dose administered intranasally, and a third dose was administered IV IO. The ED nurse had checked her pulse and found that she only had a heart rate of 20. Jh ortez was called at 2034. Patient had no IV access today and nurses were unable to gain access so two IO ports were placed in in both legs. The code team arrived and CPR was started with rotating nurses as well as myself. Patient was hooked up to the defibrillator. A series of atropine and epinephrine were ordered by the emergency room physician and administered (please see flow sheet). Patient during that time went into ventricular fibrillation, and she was defibrillated by me after clearing the staff off the patient using a biphasic defibrillator at 120 joules. CPR was continued, numerous doses of epinephrine 1 mg were provided to the patient, (please see flow sheet). The patient was intubated by the ED physician with a difficult airway and eventually bag valve masked. I ordered a CBC, CMP, troponins, magnesium, which were drawn. Several pulse and rhythm checks were taken, and the patient went into a series of PEA rhythms. After approximately 30 minutes of CPR and bag valve mask assisted respirations the patient was pronounced at 2107. Patient's mother was in the hospital and the patient's mother and patient's sister were both informed by the emergency room physician of the patient's . Critical care time: 38 minutes.
--- NOTE | 2019-03-15 23:55 | PC.NURSE ---
Patient remains picked up by [facility]. A few personal items that remained in room placed into safe and mother is aware and plans to machine pecan picker.
--- NOTE | 2019-03-16 09:13 | ER_ITS ---
ED Provider Consult/Code Note General Date Patient Seen: 03/15/19 Time Patient Seen: 09:02 Reason for Admission: Lower Back Pain M54.16 M54.5 Events leading to Consult/Code: The patient was inpatient, 6 days postop for lumbar surgery. Rapid response was initiated prior to code blue being called. The patient had required quite amount of narcotic pain medications although postop day 6. She was complaining of severe back pain. Meds were given. The patient was awake and talking but became unresponsive, she is well use of narcotics. No IV was in place. Nasal and SQ Narcan was given, with no response, resulting into the code blue call. Upon arrival the patient was unresponsive, she did not appear to be breathing. A nurse noted her heart rate was 20. I cannot palpate a pulse, CPR was initiated. IV was not quickly established, 2 IVs were placed. BVM was used to ventilate the patient. Cardiac Rhythm: Sinus bradycardia Additional: Asystole Respiratory Auscultation: diminished lung sounds, No rales, No rhonchi and No wheezes ET Tube Size: 7 Tube Secured Location: teeth Tube Placement Confirmation: Visualized tube passing through cords, Equal breath sounds bilaterally, No breath sounds over epigastrium and Confirmation by capnometry Care Provided Description of care provided: The patient presented with PEA upon my arrival to the code. She was awake and talking to the nurse minutes prior to the event. Aggressive resuscitation for PE/asystole was conducted. The patient had bilat eral IO lines placed. CPR was being conducted. Multiple meds were given. The patient could not be intubated immediately, she had copious emesis and was actively vomiting during CPR on the 1st and 2nd attempts to intubate. She was intubated with the 3rd look. Please review the code sheet. Outcome Outcome: Time of was 9:08 p.m.
--- NOTE | 2019-05-03 15:10 | P.DS_ITS ---
History of Present Illness Date Patient Seen: 03/06/19 Time Patient Seen: 15:11 Chief complaint: Lower Back Pain M54.16 M54.5 Narrative: 43 yo F with hx of lumbar laminectomies surgery with acute worsening of back pain, leg pain and leg weakness. She has severe spinal stenosis centrally and in her neuroforamen in multiple levels. She has been to the emergency room three times in the last month for progressively worsening back pain and leg weakness. She is admitted for worsening pain and weakness and inability to walk due to leg weakness to the Internal medicine service. Orthopedic service was consulted for additional evaluation and recommendation. Patient was bedridden prior to emergency room admission. I discussed my findings with the patient. She requires surgical decompression with repeat bilateral laminectomies and total facetecomies at L2-3, L3-4 level, which will render L2-3, L3-4 level grossly unstable. She will require a fusion procedure at the same time. She will also require additional decompression at L4-5, L5-S1 with left hemilaminectomy. Risks for surgery include but not limited to bleeding, infection, nerve/dura/bladder/bowel/blood vessel injury, need for additional procedure, even . Pt understands and would like to proceed with surgery. I scheduled her for L2-3, L3-4 TLIF, L4-5, L5-S1 left hemilaminectomies. Patient underwent lumbar fusion and decompression surgery on 03/09/19. Her surgery was done without any issues or complications. Patient was admitted to inpatient hospital for mobility training, neurologic monitoring and pain control. Patient has been slow to mobilize with PT due to her significant weakness in her legs prior to surgery and the bed ridden status prior to surgery. Patient was a candidate for SNF placement due to her additional need for post op care due to limited mobility. Patient was stable from surgical standpoint and w as waiting on placement starting on 03/11/19. On POD#5, 03/15/19, patient was found to have significant respiratory suppression on the inpatient floor. Rapid response was initiated with administering of Narcan. She continue to be unresponsive. Code Blue was called. CPR and ACLS was performed. Patient was not able to be resuscitated and on the evening of 03/15/19. Discharge Providers Date of admission: 03/05/19 21:14 Discharge Date: 03/16/19 Primary care physician: Felisa Bacon DO Consults: 03/05/19 23:53 Consult to Physical Therapy Evaluate & Treat Comment: difficulty ambulating, weakness Physician Instructions: Evaluate and Treat 03/06/19 10:33 Consult to Occupational Therapy Evaluate & Treat Comment: Physician Instructions: Evaluate and treat 03/06/19 15:02 Consult to Orthopedic Surgery Routine Comment: Consulting Provider: Carmita Mathias MD Reason for consultation: Multilevel DJD, foraminal stenosis, canal stenosis Has provider been notified: Yes 03/09/19 13:53 Consult to Occupational Therapy Evaluate & Treat Comment: Physician Instructions: Evaluate and treat Consult to Physical Therapy Evaluate & Treat Comment: Physician Instructions: Evaluate and Treat 03/14/19 08:45 Consult to Asset Protection Agent Routine Comment: Discharge provider: Carmita Mathias MD Exam Vital Signs (past 8 hours): Fraction of Inspired Oxygen 24 Oxygen Delivery Method Room Air Oxygen Flow Rate 0 Objective Labs Result Diagrams: 03/15/19 20:55 03/15/19 20:55 Discharge Plan Discharge Plan Patient Disposition: Discharge Data Primary Care Provider: Felisa Bacon Attending Provider: Carmita Mathias Admit Date/Time: 03/05/19 21:14 Discharges patient from system. Discharge Date/Time: 03/15/19 23:50 Quality VTE Deep Vein Thrombosis/Pulmonary Embolism Present on Admission: No
== END 2019-03-15 23:50 | disposition expired | DRG 304 ==
LOC: ED 20:23 → AC 03-06 07:51
PROVIDERS: Internal Medicine; Nurse Practitioner Family; Admitting Provider Nurse Practitioner Gerontology; Emergency Provider Emergency Medicine; PCP Family Medicine; Visit Provider Orthopaedic Surgery Orthopaedic Surgery of the Spine
PROC: 0SG10AJ Fusion of 2 or more Lumbar Vertebral Joints with Interbody Fusion Device, Posterior Approach, Anterior Column, Open Approach (ICD-10-PCS; principal; 2019-03-09 07:45)
DX: M48.07 Spinal stenosis, lumbosacral region (principal); I46.9 Cardiac arrest, cause unspecified; J96.01 Acute respiratory failure with hypoxia; E88.81 Metabolic syndrome and other insulin resistance; E66.01 Morbid (severe) obesity due to excess calories; Z68.41 Body mass index [BMI] 40.0-44.9, adult; E86.9 Volume depletion, unspecified; E28.2 Polycystic ovarian syndrome; F43.21 Adjustment disorder with depressed mood; T40.2X5A Adverse effect of other opioids, initial encounter; Z87.891 Personal history of nicotine dependence; D72.829 Elevated white blood cell count, unspecified; E86.1 Hypovolemia; L68.0 Hirsutism; R73.9 Hyperglycemia, unspecified; M96.1 Postlaminectomy syndrome, not elsewhere classified; M48.062 Spinal stenosis, lumbar region with neurogenic claudication; M47.26 Other spondylosis with radiculopathy, lumbar region; M47.27 Other spondylosis with radiculopathy, lumbosacral region; M54.5 Low back pain; M79.606 Pain in leg, unspecified; R25.2 Cramp and spasm
CPT/HCPCS: 36415; 72100; 72148; 76000; 80048; 80053; 80305; 81025; 83036; 83735; 84443; 84484; 85014; 85018; 85025; 92950; 94762; 94799; 96374; 96375; 97116; 97162; 97165; 97530; 97535; 99282; 99284; 99406; C1776; C9290; J0131; J0330; J0690; J1100; J1170; J1644; J1885; J2250; J2310; J2405; J2704; J2930; J3010